=== PATIENT | female | born 1960 | race Caucasian/White ===

== ENCOUNTER 2017-06-09 18:55 | Inpatient (IN) ==
--- NOTE | 2017-06-09 19:49 | Emergency Department Note ---
General Adult HPI - General Chief complaint: Extremity Problem,Nontraumatic Stated complaint: left leg swelling Time Seen by Provider: 06/09/17 19:42 Source: patient Mode of arrival: ambulatory Limitations: no limitations - History of Present Illness HPI Narrative: Patient here for left leg swelling, also a lot of anxiety. Seen here 3 days ago , had been given medications for COPD exacerbation, states her breathing is improved although she didn't take her prednisone today, main thing is that she was sleeping for 3 days then she woke up with left leg swelling this morning. Mainly in the left leg swelling brought her in. She also has pain has pain in the left calf area. Moved here from [facility], was in clean and sober housing over there, not employed, smoke or use a one half to one pack a day, history of COPD denies any other medical history no chest pain no fevers or chills, she does have chronic shortness of breath - Related Data Previous Rx's Medication Instructions Recorded Albuterol Sulfate [Ventolin] 2 puff INH Q4-6HP PRN #1 inhaler 06/06/17 predniSONE [Prednisone] 20 mg PO DAILY #23 tablet 06/06/17 Allergies Allergy/AdvReac Type Severity Reaction Status Date / Time No Known Drug Allergies Allergy Verified 06/06/17 13:42 Review of Systems All systems ED: reviewed and negative except as stated. Constitutional: Denies: fever, chills Respiratory: Reports: cough, dyspnea Gastrointestinal: Denies: abdominal pain, nausea Integumentary: Reports: change in color Neurological: Reports: weakness Psychiatric: Reports: anxiety. Denies: suicidal thoughts Endocrine: Reports: fatigue Hematological/Lymphatic: Denies: easy bruising Allergic/Immunologic: Denies: facial swelling Past Medical History - Past Medical History Source: nursing notes reviewed Medical history: Reports: COPD Surgical history ED: Reports: non-contributory Psychiatric history: Reports: anxiety Family history: Reports: non-contributory - Social History smoking status: Current every day smoker Alcohol use: Reports: None Drug use: Reports: none Physical Exam - General Limitations: no limitations General appearance: alert, in distress - Head Head exam: atraumatic, normocephalic - Eye Eye exam: Present: normal appearance, PERRL, EOMI. Absent: conjunctival injection - ENT ENT exam: normal exam, normal oropharynx, mucous membranes moist - Neck Neck exam: Present: normal inspection, full ROM, trachea midline. Absent: tenderness, meningismus - Chest Chest inspection: Present: normal inspection - Respiratory Respiratory exam: Present: wheezes, accessory muscle use - Cardiovascular Cardiovascular exam: Present: regular rate, normal rhythm - Abdominal Exam Abdominal exam: Present: soft. Absent: distention - Extremities Exam Extremities exam: Present: tenderness, pedal edema, calf tenderness, other ( Swelling of the entire left lower e Entire left lower extremity). Absent: joint swelling - Back Exam Back exam: Present: normal inspection, full ROM. Absent: tenderness, CVA tenderness (R), CVA tenderness (L), vertebral tenderness - Neurological Exam Neurological exam: Present: alert, oriented X3 - Psychiatric Psychiatric exam: Present: normal affect - Skin Skin exam: Present: warm, dry, intact, cyanosis Course Vital Signs Temperature 98.2 F 06/09/17 18:56 Pulse Rate 111 H 06/09/17 18:56 Respiratory Rate 18 06/09/17 18:56 Blood Pressure 90/64 06/09/17 18:56 Pulse Oximetry (%) 94 06/09/17 18:56 Temperature 98.2 F 06/09/17 18:56 Pulse Rate 89 06/09/17 21:01 Respiratory Rate 18 06/09/17 18:56 Blood Pressure 100/73 06/09/17 21:01 Pulse Oximetry (%) 98 06/09/17 21:01 Medical Decision Making - [facility] Narrative Medical decision making narrative: Chest x-ray was negative, venous scan positive for large amount of clot. ABG remarkable for poor oxygen saturation, likely due to COPD exacerbation and. ProBNP fairly normal. 12-lead EKG showing late transition and marketed P pulmonale. Final impression is COPD exacerbation #2 DVT left leg - Lab Data Lab results reviewed: Yes I reviewed the patient's lab results. Result diagrams: 06/09/17 20:05 06/09/17 20:05 Lab Results 06/09/17 06/09/17 06/09/17 Range/Units 20:05 20:05 20:05 WBC 11.8 H (4.5-11.0) K/mcL RBC 5.14 (4.00-5.20) M/mcL Hgb 15.6 H (12.0-15.0) g/dL Hct 46.1 (36.0-48.0) % MCV 89.6 (80.0-100.0) fL MCH 30.2 (26.0-34.0) pg MCHC 33.8 (31.0-36.0) g/dL RDW 15.3 H (11.5-14.5) % Plt Count 184 (140-440) K/mcL MPV 8.1 (7.4-10.4) fL Gran % 80.4 H (38.0-78.0) % Lymph % (Auto) 12.5 L (15.5-49.0) % Hunt % (Auto) 5.9 (1.0-12.0) % Eos % (Auto) 0.4 (0.0-7.0) % Baso % (Auto) 0.8 (0.0-2.0) % Gran # 9.5 H (1.8-8.0) K/mcL Lymph # (Auto) 1.5 (1.5-4.8) K/mcL Hunt # (Auto) 0.7 (0.1-0.9) K/mcL Eos # (Auto) 0 (0.0-0.7) K/mcL Baso # (Auto) 0.1 (0.0-0.3) K/mcL PT 13.5 (11.9-14.5) sec INR 1.0 (0.9-1.1) Sodium 137 (133-145) mmol/L Potassium 4.1 (3.3-5.1) mmol/L Chloride 94 L (96-108) mmol/L Carbon Dioxide 25 (22-30) mmol/L Anion Gap 18.0 H (8-16) BUN 22 H (6-20) mg/dl Creatinine 0.9 (0.6-1.1) mg/dl GFR Calculation 71 Glucose 110 H (70-105) mg/dL Calcium 9.6 (8.6-10.4) mg/dl Magnesium 2.2 (1.6-2.5) mg/dL Total Bilirubin 0.7 (0.0-1.0) mg/dL AST 18 (0-37) U/l ALT 15 (0-40) U/l Alkaline Phosphatase 85 (39-117) U/L NT-Pro-B Natriuret Pep 126.6 H (0-125) pg/ml Total Protein 7.2 (5.9-8.4) gm/dL Albumin 4.7 (3.2-5.2) gm/dL Globulin 2.5 (2.2-3.7) gm/dL Albumin/Globulin Ratio 1.9 (1.0-2.3) - Radiology Data Radiology results reviewed: Yes I reviewed the patient's radiology results. Disposition Pt seen by PUMPER GAGER APPRENTICE/PA only: No Clinical Impression: Deep vein thrombosis of lower extremity Disposition: Xfer As Inpt ([facility]) Condition: Fair
[2017-06-09] MEDS ORDERED: LACTATED RINGERS 1,000 ML IV ONE (19:51)
[2017-06-09] MEDS ORDERED: IPRATROPIUM/ALBUTEROL 3 ML AMPUL.NEB NEB ONE (19:51)
[2017-06-09] MEDS ORDERED: HYDROmorphone 2 MG/ML SYRINGE IV PRN (20:57)
[2017-06-09 21:07] LABS: ALT/SGPT 15 U/l (0-40); Albumin 4.7 gm/dL (3.2-5.2); Albumin/Globulin Ratio 1.9 (1.0-2.3); Alkaline Phosphatase 85 U/L (39-117); Blood Urea Nitrogen 22 mg/dl (6-20); Magnesium 2.2 mg/dL (1.6-2.5); proBNP 126.6 pg/ml (0-125)
[2017-06-09 21:09] LABS: Basophils # (Auto) 0.1 K/mcL (0.0-0.3); Basophils % (Auto) 0.8 % (0.0-2.0); Eosinophils # (Auto) 0 K/mcL (0.0-0.7); Eosinophils % (Auto) 0.4 % (0.0-7.0); Granulocytes % (Auto) 80.4 % (38.0-78.0); Lymphocytes # (Auto) 1.5 K/mcL (1.5-4.8); Lymphocytes % (Auto) 12.5 % (15.5-49.0); Mean Cell Volume 89.6 fL (80.0-100.0); Mean Corpuscular HGB Conc 33.8 g/dL (31.0-36.0); Mean Corpuscular Hemoglobin 30.2 pg (26.0-34.0); Monocytes # (Auto) 0.7 K/mcL (0.1-0.9); Monocytes % (Auto) 5.9 % (1.0-12.0); Platelet Count 184 K/mcL (140-440); RBC 5.14 M/mcL (4.00-5.20); Red Cell Distribution Width 15.3 % (11.5-14.5)
[2017-06-09] MEDS ORDERED: methylPREDNISolone SOD SUCC 125 MG/2 ML VIAL IV ONE (21:27)
[2017-06-09] MEDS ORDERED: ENOXAPARIN 100 MG/ML SYRINGE SQ ONE (21:38)
[2017-06-09] MEDS ORDERED: PANTOPRAZOLE 40 MG VIAL IV ONE (21:39)
[2017-06-09 22:00] LABS: D-Dimer > 20.00 ug/ml (0.00-0.40)
--- NOTE | 2017-06-09 22:15 | Internal Med History&Physical ---
Medical - H&P: HPI Patient information: Note initiated : 06/09/17 at 10:11 pm Service Date, if different from initiated Date: [] Patient: Shelly Marie a 56 y/o F admitted on for left leg swelling. Chief Complaint: [] History of present illness: Ms. Marie is a 56 year old with a history of tobacco abuse, and COPD. She presented to the emergency room on June 06, complaining of shortness of breath and wheezing. She was diagnosed with a COPD exacerbation, and sent home on prednisone and albuterol. She was complaining of anxiety while in the emergency room, so was given a dose of Ativan. She says she went home, and slept for 3 days. When she awakened, her left leg was markedly swollen and painful. She came back to the emergency room, where a left lower extremity DVT was diagnosed. ABG today shows significant room air hypoxia. She otherwise denies recent fever or chills. She has been feeling a little dizzy for the last week. She says her throat is felt dry. She is also been having some occasional discomfort in her left chest, which she describes as dull and lasting several minutes at a time. It is nonradiating and does not seem to change her breathing or make her break out in a sweat. She denies abdominal pain, nausea or vomiting, diarrhea or constipation, or dysuria. She did have some nausea this evening, after the CAT scan, but no vomiting. Past medical history: Tobacco abuse, ongoing COPD Anxiety Significant GERD symptom Past methamphetamine use, status post treatment for 1 year in [facility], she got out about 2 weeks ago. Medications: Albuterol inhaler as needed Prednisone 20 mg daily, for the last few days. She is also on an unknown medication from Dr. Virginia Morales in [facility]. This comes from [facility]. Allergies: No known drug allergies Family history: The patient says she cannot recall her family history right now. She does report that she has 2 children in their early 20s. She believes they are healthy, but has not seen him in some time. Social history: The patient is a current smoker. She smokes about a half pack of cigarettes per day, and has been smoking since the age of 16. She drinks 1 or 2 beers most days. She was completely drug free for the last year, but got out of treatment about 2 weeks ago. She says she did use meth once about a week ago, and that it was a mistake. She is currently living with her boyfriend in [place]. Medical - H&P: Meds Home Medications Medication Instructions Recorded Confirmed Type Albuterol Sulfate 1.25 mg IH Q4 PRN 06/10/17 06/10/17 History Albuterol Sulfate [Proair Hfa] 2 puff IH Q4-6HP PRN 06/10/17 06/10/17 History predniSONE [Prednisone] 60 mg PO DAILY 06/10/17 06/10/17 History Allergies Allergy/AdvReac Type Severity Reaction Status Date / Time No Known Drug Allergies Allergy Verified 06/06/17 13:42 Medical - H&P: Exam - Constitutional Vitals: Temp Pulse Resp BP Pulse Ox 98.2 F 101 H 18 109/75 93 06/09/17 18:56 06/09/17 21:52 06/09/17 18:56 06/09/17 21:52 06/09/17 21:52 On arrival today, heart rate was 111, with respiratory rate 18, blood pressure 90/64, O2 saturations 94% on room air On exam, she does appear to be quite anxious. She is frequently wiggling her fingers and picking at her nails. Otherwise, she is not in acute distress although she does become nauseated at one point during the exam. Head: Normocephalic atraumatic. Eyes: Pupils are fairly pinpoint, but otherwise EOMI, anicteric. TMs are clear canals are clear. Pharynx: Appears fairly clear. She has a full upper plate and is edentulous in the lower jaw. Mucosa looks normal. Neck: Is supple, without lymphadenopathy, JVD, thyromegaly, bruits. Cardiac exam shows regular rate and rhythm with normal S1 and S2. No murmurs, rubs, gallops are noted. Lungs: Breath sounds are generally decreased throughout. I do not hear any obvious rales, rhonchi, wheezes. There is no obvious accessory muscle use. Abdomen: Is soft and nontender, without obvious masses. Bowel sounds are normoactive. Extremities: Right lower extremity has fairly normal appearance. Left lower extremity is fairly markedly swollen all the way from her foot up to her groin. It is slightly pink, but not warm to the touch. Pulses in her feet are intact bilaterally. Neurologic exam: The patient is awake and alert, but appears anxious. She seems to lack insight into her illness. She does seem a little bit tremulous, but otherwise exam is grossly nonfocal. Medical - H&P: Reslt - Labs CBC & Chem 7: 06/09/17 20:05 06/10/17 03:56 Labs: Short CBC 06/09/17 Range/Units 20:05 WBC 11.8 H (4.5-11.0) K/mcL Hgb 15.6 H (12.0-15.0) g/dL Hct 46.1 (36.0-48.0) % Plt Count 184 (140-440) K/mcL BMP 06/09/17 20:05 Sodium 137 Potassium 4.1 Chloride 94 L Carbon Dioxide 25 BUN 22 H Creatinine 0.9 Glucose 110 H Calcium 9.6 Liver Function 06/09/17 Range/Units 20:05 Total Bilirubin 0.7 (0.0-1.0) mg/dL AST 18 (0-37) U/l ALT 15 (0-40) U/l Alkaline Phosphatase 85 (39-117) U/L Albumin 4.7 (3.2-5.2) gm/dL June 09 CBC shows white blood cell count of 11,800, hemoglobin 15, hematocrit 46. Granulocyte count is 9500. Pro time is 13, INR 1.0 D-dimer is elevated at greater than 20 Chemistry panel is notable for a chloride of 94, anion gap is elevated at 18, BUN 22, creatinine 0.9, glucose 110 BNP is borderline at 126. ABG on room air: PH is 7.38, CO2 42, PO2 54, bicarb 24, O2 saturation 96%. EKG: Shows sinus tachycardia at a rate of about 110, low voltage is noted, there is a hint of a small Q-wave in lead III, as well as S wave in lead I. Medical - H&P: A/P (1) Tobacco abuse Current visit: Yes Status: Acute (2) Acute anxiety Current visit: Yes Status: Acute (3) Acute exacerbation of chronic obstructive airways disease Current visit: No Status: Acute (4) Deep vein thrombosis of lower extremity Current visit: Yes Status: Acute - Narrative A/P Narrative: #1. Pulmonary Patient presents with shortness of breath and significant room air hypoxia. She is at risk for both COPD exacerbation, as well as at significant risk for pulmonary embolism, given very extensive DVT. -Admit to telemetry for close observation. -Lovenox started in the ER, and continue with twice daily Lovenox 1 mg/kg. -Start Coumadin tomorrow -Ambulation is okay, but no excessive ambulation. Consider compression hose to help avoid post DVT edema. -CT angiogram of the chest was done this evening. Results are pending. -Oxygen as needed, duo nebs and albuterol nebs as needed. -Wait to decide about steroids, until CT scan is read. -IV Zithromax, to cover both typical and atypical infections. 2. Tobacco abuse. -Offer NicoDerm patch. 3. Substance abuse Street methamphetamine use. Clean for about 1 year, with 1 slipped about a week ago. 4. CODE STATUS: Full. 5. Psychiatric. Patient reports chronic anxiety. She does get some treatment from a Dr. Aline Morales in [facility], but she does not know what treatment that is. 6. GI. Patient reports history of GERD. Add famotidine twice daily. Today's visit took approximately 60 minutes, to review her case with the ER MD, interview and examine her, review test results, and order follow-up CT, and write orders.
[2017-06-09] MEDS ORDERED: IOPAMIDOL 100 ML BOTTLE IV ONE (22:30)
[2017-06-09] MEDS ORDERED: NALOXONE HCL 0.4 MG/ML VIAL IV PRN (22:40)
[2017-06-09] MEDS ORDERED: ALBUTEROL SULFATE 2.5 MG/3 ML NEBULIZER NEB PRN (22:40)
[2017-06-09] MEDS ORDERED: ONDANSETRON 4 MG/2 ML VIAL IV PRN (22:40)
[2017-06-09] MEDS ORDERED: DOCUSATE SODIUM 100 MG CAPSULE PO PRN (22:40)
[2017-06-09] MEDS ORDERED: POTASSIUM CHLORIDE 20 MEQ in 0.9 % SODIUM CHLORIDE 1,000 ML IV SCH (22:40)
[2017-06-09] MEDS ORDERED: ACETAMINOPHEN 325 MG TABLET PO PRN (22:40)
[2017-06-09] MEDS ORDERED: AZITHROMYCIN 500 MG in DEXTROSE 5% IN WATER 250 ML IV SCH (22:40)
[2017-06-09] MEDS ORDERED: MAGNESIUM HYDROXIDE 30 ML ORAL.SUSP PO PRN (22:40)
[2017-06-09] MEDS ORDERED: AZITHROMYCIN 500 MG VIAL IV ONE (22:52)
[2017-06-09] MEDS ORDERED: LORazepam 2 MG/ML VIAL ONE (22:58)
[2017-06-09] MEDS ORDERED: ONDANSETRON 4 MG/2 ML VIAL ONE (23:33)
[2017-06-10] MEDS: IPRATROPIUM/ALBUTEROL 3 ML AMPUL.NEB NEB SCH ×4 (01:28→19:16)
[2017-06-10 04:50] LABS: Basophils # (Auto) 0 K/mcL (0.0-0.3); Basophils % (Auto) 0 % (0.0-2.0); Eosinophils # (Auto) 0.1 K/mcL (0.0-0.7); Eosinophils % (Auto) 0.6 % (0.0-7.0); Lymphocytes # (Auto) 0.3 K/mcL (1.5-4.8); Lymphocytes % (Auto) 3.9 % (15.5-49.0); Mean Cell Volume 91.5 fL (80.0-100.0); Mean Corpuscular HGB Conc 33.3 g/dL (31.0-36.0); Mean Corpuscular Hemoglobin 30.5 pg (26.0-34.0); Monocytes # (Auto) 0.1 K/mcL (0.1-0.9); Monocytes % (Auto) 1.5 % (1.0-12.0); Platelet Count 159 K/mcL (140-440); RBC 4.29 M/mcL (4.00-5.20); Red Cell Distribution Width 15.9 % (11.5-14.5)
[2017-06-10 05:08] LABS: ALT/SGPT 12 U/l (0-40); Albumin 3.7 gm/dL (3.2-5.2); Albumin/Globulin Ratio 1.9 (1.0-2.3); Alkaline Phosphatase 69 U/L (39-117); Bilirubin,Direct < 0.2 mg/dL (0.0-0.3); Blood Urea Nitrogen 17 mg/dl (6-20); Gamma Glutamyl Transpeptidase 8 U/L (5-36); Uric Acid 4.6 mg/dL (2.5-8.0)
--- NOTE | 2017-06-10 06:55 | XRay Report ---
CLINICAL INFORMATION: Dyspnea TECHNIQUE: Upright PA and lateral chest x-ray COMPARISON: 06/06/2017, 01/06/2016 FINDINGS: Hyperexpansion. Appearance is consistent with COPD. Lungs are negative. No parenchymal infiltrate or mass. Heart size and vascularity are normal. Allie and mediastinum are negative. No pleural fluid. No new abnormalities. No significant interval change IMPRESSION: 1. No acute or focal abnormality 2. No significant interval change since 06/06/2017 Interpreted and Authenticated by: Reggie Maldonado 06/10/17
--- NOTE | 2017-06-10 07:12 | Cat Scan Report ---
CLINICAL INFORMATION: COPD. Hypoxia. COMPARISON: Chest x-rays dated 06/09/2017, 06/06/2017, 01/06/2016 TECHNIQUE: Axial images obtained through the chest. 80 mL intravenous contrast administration was administered, and scanning was performed during pulmonary arterial phase. Sagittally and coronally reformatted images were obtained. MIP reformatted images. FINDINGS: Single small embolism in the right lower lobe posterior basilar segmental artery. No other intraluminal filling defects. Examination is otherwise negative. Main pulmonary artery, right pulmonary artery, left pulmonary artery are negative. Centrilobular emphysema with predominantly upper lobe distribution. This is consistent with smoking history. Clinical correlation necessary. No focal infiltrate or mass. Mediastinum and adam are negative. No pleural fluid. No pericardial fluid. Upper abdomen is negative. Thoracic spine is negative. No rib or sternal lesions. Examination was reviewed by [facility] IMPRESSION: 1. Centrilobular emphysema 2. Single segmental filling defect consistent pulmonary embolism. This is in the posterior basilar segmental branch of the right lower lobe pulmonary artery. Interpreted and Authenticated by: Reggie Maldonado 06/10/17
[2017-06-10] MEDS ORDERED: NACL 0.9% W/KCL 20MEQ 1,000 ML IV SCH (07:15)
--- NOTE | 2017-06-10 07:40 | Ultrasound Report ---
CLINICAL INFORMATION: Left leg pain and swelling TECHNIQUE: Grayscale and color flow Doppler spectral imaging COMPARISON: None. FINDINGS: Extensive deep venous thrombosis in the left lower extremity. Thrombus within the left external iliac vein, common femoral vein, superficial femoral vein. Doppler vein is occluded. There is acute deep venous thrombosis within the calf veins as well as the greater saphenous vein. Inferior vena cava is not visualized due to bowel gas IMPRESSION: Extensive acute deep venous thrombosis from the left external iliac vein through the calf. Interpreted and Authenticated by: Reggie Maldonado 06/10/17
[2017-06-10] MEDS: ENOXAPARIN 60 MG/0.6 ML SYRINGE SQ SCH ×2 (10:00→22:00)
[2017-06-10] MEDS: FAMOTIDINE 20 MG TABLET PO SCH ×2 (10:00→19:20)
[2017-06-10] MEDS: DEXTROSE 5%-NS 1,000 ML IV SCH ×2 (10:01→19:29)
--- NOTE | 2017-06-10 11:13 | Internal Med Progress Note ---
Medical - PN: Subj Patient information: Note initiated : 06/10/17 at 11:13 am Service Date, if different from initiated Date: [] Patient: Shelly Marie a 56 y/o F admitted on 06/09/17 for left leg swelling. Chief Complaint: [] Interval history: June 09, 2017: History of present illness: Ms. Marie is a 56 year old with a history of tobacco abuse, and COPD. She presented to the emergency room on June 06, complaining of shortness of breath and wheezing. She was diagnosed with a COPD exacerbation, and sent home on prednisone and albuterol. She was complaining of anxiety while in the emergency room, so was given a dose of Ativan. She says she went home, and slept for 3 days. When she awakened, her left leg was markedly swollen and painful. She came back to the emergency room, where a left lower extremity DVT was diagnosed. ABG today shows significant room air hypoxia. She otherwise denies recent fever or chills. She has been feeling a little dizzy for the last week. She says her throat is felt dry. She is also been having some occasional discomfort in her left chest, which she describes as dull and lasting several minutes at a time. It is nonradiating and does not seem to change her breathing or make her break out in a sweat. She denies abdominal pain, nausea or vomiting, diarrhea or constipation, or dysuria. She did have some nausea this evening, after the CAT scan, but no vomiting. June 10: -The patient did undergo CT angiogram last night, which did find small peripheral pulmonary emboli. She has been loaded with therapeutic dose Lovenox , and so far seems to be tolerating this well. Today, she thinks her left leg is a little less swollen and less painful. Otherwise, she denies fever or chills, chest pain or significant shortness of breath, cough. She denies headaches or dizziness, abdominal pain, nausea or vomiting, diarrhea or constipation, dysuria. -She continues to report mild anxiety, which she thinks is chronic. She says she would like treatment for this. She believes she was prescribed a medication by a Dr. Virginia Odom in [facility], but she really does not know what the medicine is or what it was for. We called [facility], but apparently could not find evidence of a prescription. -We should try to call this doctor's office tomorrow, to see if we could get some records on her. - Constitutional Vitals: Vital Signs Temp Pulse Resp BP Pulse Ox 97.1 F 61 16 92/65 94 06/10/17 08:00 06/10/17 07:26 06/10/17 08:00 06/10/17 08:00 06/10/17 08:00 Period Temp Pulse Resp BP Sys/Christian Pulse Ox Last 24 Hr 97.1 F-98.2 F 61-97 16-18 92-99/65-72 94-99 Intake and Output 06/09/17 06/10/17 06/10/17 21:59 05:59 13:59 Intake Total 1210 / 1210 Output Total 325 / 325 225 / 225 Balance -325 / -325 985 / 985 Weight 106 lb 14.4 oz Intake & Output: Intake & Output 06/09/17 06/10/17 06/10/17 21:59 05:59 13:59 Intake Total 1210 / 1210 Output Total 325 / 325 225 / 225 Balance -325 / -325 985 / 985 Weight 106 lb 14.4 oz Intake: IV 1010 / 1010 Oral 200 / 200 Output: Void Amount 325 / 325 225 / 225 Other: Meal Nourishment/Supplement Breakfast Percent of Meal Consumed 100% 90% Feeding Ability Independent # Voids 1 On exam, she seems calmer and more comfortable today. She does have some repeated movements, that are suggestive of tardive dyskinesia, with repeated tongue thrusting and some pill rolling of her fingers. Neck is supple without obvious lymphadenopathy or JVD. Cardiac exam shows regular rate and rhythm. Lungs: Breath sounds are generally decreased, more so at the right base. No rhonchi or wheezes are noted today. Abdomen is soft and nontender. Extremities: Right lower extremity appears normal. Left lower extremity is still swollen all the way to the groin, but is less swollen and less pink today than yesterday. Neurologic exam: The patient appears alert and oriented. She is a bit anxious. She does have some unusual repetitive movements, as noted above. Otherwise her exam is grossly nonfocal. Medical - PN: Obj Da - Labs CBC & Chem 7: 06/09/17 20:05 06/10/17 03:56 Labs: Abnormal Lab Results 06/10/17 03:56 Potassium 5.4 H Glucose 151 H Calcium 8.3 L Total Protein 5.6 L Globulin 1.9 L June 09: CT angiogram: showed centrilobular emphysema. There was also single segmental filling defect consistent with pulmonary embolism, and the posterior basilar segment branch of the right lower lobe pulmonary artery. CBC shows white blood cell count of 11,800, hemoglobin 15, hematocrit 46. Granulocyte count is 9500. Pro time is 13, INR 1.0 D-dimer is elevated at greater than 20 Chemistry panel is notable for a chloride of 94, anion gap is elevated at 18, BUN 22, creatinine 0.9, glucose 110 BNP is borderline at 126. ABG on room air: PH is 7.38, CO2 42, PO2 54, bicarb 24, O2 saturation 96%. EKG: Shows sinus tachycardia at a rate of about 110, low voltage is noted, there is a hint of a small Q-wave in lead III, as well as S wave in lead I. Chest x-ray shows hyperexpansion consistent with COPD. Change since June 06, 2017. Meds: Medications Acetaminophen (Tylenol) 650 mg PO Q6HP PRN PRN Reason: PAIN/FEVER > 101 Hydrocodone Bitart/Acetaminophen ([place] 5/325mg) 1 tab PO Q4HP PRN PRN Reason: Pain Albuterol Sulfate (Ventolin) 2.5 mg NEB Q2HP PRN PRN Reason: Shortness Of Breath Or Wheezing Albuterol/Ipratropium (Duoneb) 3 ml NEB Q6HRT [facility] Last Admin: 06/10/17 07:26 Dose: 3 ml Docusate Sodium (Colace) 100 mg PO BID PRN PRN Reason: Constipation Enoxaparin Sodium (Lovenox) 50 mg SQ BID [facility] Last Admin: 06/10/17 10:00 Dose: 50 mg Famotidine (Pepcid) 20 mg PO BID [facility] Last Admin: 06/10/17 10:00 Dose: 20 mg Azithromycin 500 mg/ Dextrose 250 mls @ 250 mls/hr IV DAILY [facility] Stop: 06/11/17 09:59 Dextrose/Sodium Chloride (Dextrose 5%-Ns Iv Solution) 1,000 mls @ 100 mls/hr IV .Q10H [facility] Last Admin: 06/10/17 10:01 Dose: 100 mls/hr Lorazepam (Ativan) 0.5 mg IV Q2HP PRN PRN Reason: ANXIETY/SEDATION Magnesium Hydroxide (Milk Of Magnesia) 30 ml PO DAILYP PRN PRN Reason: Constipation Morphine Sulfate (Morphine) 2 mg IV Q1HP PRN PRN Reason: Pain Naloxone HCl (Narcan) 0.1 mg IV Q2MIN PRN PRN Reason: Opiate Reversal Ondansetron HCl (Zofran) 4 mg IV Q4HP PRN PRN Reason: Nausea And Vomiting Medical - PN: A/P - Time Spent With Patient Total time spent is greater than 50% in coordination of care (as documented) at patient's floor/unit and/or counseling patient: 25 - 35 minutes (1) Tobacco abuse Status: Acute Current Visit: Yes (2) Acute anxiety Status: Acute Current Visit: Yes (3) Acute exacerbation of chronic obstructive airways disease Status: Acute Current Visit: No (4) Deep vein thrombosis of lower extremity Status: Acute Current Visit: Yes - Narrative A/P Narrative: #1. Pulmonary Patient presents with shortness of breath and significant room air hypoxia. -Workup last night did confirm that she has a small pulmonary embolism, in addition to an extensive left lower extremity DVT. -She was loaded with therapeutic dose Lovenox. Coumadin will be started today. She will probably need extensive education. I do not believe she has a local healthcare provider, so we will need to locate one for her. -Continue to monitor on telemetry. -Ambulation is okay, teds hose is okay to help prevent post DVT swelling. -Oxygen as needed, duo nebs and albuterol nebs as needed. -Steroids are on hold, as she is not wheezing. -IV Zithromax, to cover both typical and atypical infections. 2. Tobacco abuse. -Offer NicoDerm patch. 3. Substance abuse Recent methamphetamine use. Clean for about 1 year, with 1 slip up about a week ago. 4. CODE STATUS: Full. 5. Psychiatric. Patient reports chronic anxiety. She does get some treatment from a Dr. Aline Morales in [facility], but she does not know what treatment that is. -We need to try to locate Dr. Odom records tomorrow. 6. GI. Patient reports history of GERD. Added famotidine twice daily. This visit took approximately 30 minutes, to review test results, interview and examine the patient, review plan of care with her as well as with staff, and write orders. Medical - PN: Qual - VTE Deep Vein Thrombosis/Pulmonary Embolism Present on Admission: Yes
[2017-06-10] MEDS: AZITHROMYCIN 500 MG in DEXTROSE 5% IN WATER 250 ML IV SCH (14:37)
[2017-06-10] MEDS: WARFARIN 4 MG TABLET PO SCH (15:33)
[2017-06-10] MEDS: HYDROcodone/APAP 5/325MG TABLET PO PRN ×2 (19:20→23:46)
[2017-06-10] MEDS: LORazepam 2 MG/ML VIAL IV PRN (19:20)
[2017-06-10] MEDS: 0.9 % SODIUM CHLORIDE 10 ML SYRINGE IV SCH (22:00)
[2017-06-11] MEDS: IPRATROPIUM/ALBUTEROL 3 ML AMPUL.NEB NEB SCH ×4 (00:02→19:23)
[2017-06-11] MEDS: HYDROcodone/APAP 5/325MG TABLET PO PRN ×2 (03:25→20:10)
[2017-06-11] MEDS: 0.9 % SODIUM CHLORIDE 10 ML SYRINGE IV SCH ×3 (05:14→22:00)
[2017-06-11] MEDS: DEXTROSE 5%-NS 1,000 ML IV SCH ×2 (05:46→18:30)
[2017-06-11 07:56] LABS: ALT/SGPT 8 U/l (0-40); Alkaline Phosphatase 51 U/L (39-117); Bilirubin,Direct < 0.2 mg/dL (0.0-0.3); Blood Urea Nitrogen 13 mg/dl (6-20); Gamma Glutamyl Transpeptidase 5 U/L (5-36); Uric Acid 2.9 mg/dL (2.5-8.0)
[2017-06-11 07:57] LABS: Mean Cell Volume 91.7 fL (80.0-100.0); Mean Corpuscular HGB Conc 33.4 g/dL (31.0-36.0); Mean Corpuscular Hemoglobin 30.6 pg (26.0-34.0); Platelet Count 159 K/mcL (140-440); Red Cell Distribution Width 15.2 % (11.5-14.5)
[2017-06-11 08:33] LABS: Lymphocytes % 11 % (15-49); Monocytes % (Manual) 12 % (1-12); Platelet Estimate NORMAL (NORMAL); RBC Morphology NORMAL (NORMAL); Segmented Neutrophils % 77 % (38-78)
[2017-06-11] MEDS ORDERED: 0.9 % SODIUM CHLORIDE 500 ML IV ONE (09:11)
[2017-06-11] MEDS: FAMOTIDINE 20 MG TABLET PO SCH ×2 (09:27→20:10)
[2017-06-11] MEDS: ENOXAPARIN 60 MG/0.6 ML SYRINGE SQ SCH ×2 (09:35→20:10)
[2017-06-11] MEDS: AZITHROMYCIN 500 MG in DEXTROSE 5% IN WATER 250 ML IV SCH (09:48)
--- NOTE | 2017-06-11 14:30 | Internal Med Progress Note ---
Medical - PN: Subj Patient information: Note initiated : 06/11/17 at 2:27 pm Service Date, if different from initiated Date: [] Patient: Shelly Marie a 56 y/o F admitted on 06/09/17 for left leg swelling. Chief Complaint: [] Interval history: June 09, 2017: History of present illness: Ms. Marie is a 56 year old with a history of tobacco abuse, and COPD. She presented to the emergency room on June 06, complaining of shortness of breath and wheezing. She was diagnosed with a COPD exacerbation, and sent home on prednisone and albuterol. She was complaining of anxiety while in the emergency room, so was given a dose of Ativan. She says she went home, and slept for 3 days. When she awakened, her left leg was markedly swollen and painful. She came back to the emergency room, where a left lower extremity DVT was diagnosed. ABG today shows significant room air hypoxia. She otherwise denies recent fever or chills. She has been feeling a little dizzy for the last week. She says her throat is felt dry. She is also been having some occasional discomfort in her left chest, which she describes as dull and lasting several minutes at a time. It is nonradiating and does not seem to change her breathing or make her break out in a sweat. She denies abdominal pain, nausea or vomiting, diarrhea or constipation, or dysuria. She did have some nausea this evening, after the CAT scan, but no vomiting. June 10: -The patient did undergo CT angiogram last night, which did find small peripheral pulmonary emboli. She has been loaded with therapeutic dose Lovenox , and so far seems to be tolerating this well. Today, she thinks her left leg is a little less swollen and less painful. Otherwise, she denies fever or chills, chest pain or significant shortness of breath, cough. She denies headaches or dizziness, abdominal pain, nausea or vomiting, diarrhea or constipation, dysuria. -She continues to report mild anxiety, which she thinks is chronic. She says she would like treatment for this. She believes she was prescribed a medication by a Dr. Virginia Odom in [facility], but she really does not know what the medicine is or what it was for. We called [facility], but apparently could not find evidence of a prescription. -We should try to call this doctor's office tomorrow, to see if we could get some records on her. 06/11- patient doing well. No overnight events. Systolic blood pressure around 18. Orthostatic hypotension noted. patient on full dose anticoagulation. Coumadin counseling performed. Continue monitoring in ICU. left lower extremity swelling significantly worse than previous day. - Constitutional Vitals: Vital Signs Temp Pulse Resp BP Pulse Ox 98.4 F 75 22 115/98 93 06/11/17 12:00 06/11/17 13:41 06/11/17 13:41 06/11/17 12:00 06/11/17 12:14 Period Temp Pulse Resp BP Sys/Christian Pulse Ox Last 24 Hr 97.0 F-98.6 F 58-83 16-22 80-150/50-128 93-100 Intake and Output 06/11/17 06/11/17 06/11/17 05:59 13:59 21:59 Intake Total 1150 / 1150 572 / 572 Output Total 575 / 575 300 / 300 150 / 150 Balance 575 / 575 272 / 272 -150 / -150 Intake & Output: Intake & Output 06/11/17 06/11/17 06/11/17 05:59 13:59 21:59 Intake Total 1150 / 1150 572 / 572 Output Total 575 / 575 300 / 300 150 / 150 Balance 575 / 575 272 / 272 -150 / -150 Intake: IV 1000 / 1000 332 / 332 Dextrose 5%-Ns IV 1000 / 1000 332 / 332 Solution 1,000 ml @ 100 mls/hr IV .Q10H [facility] Rx#: [id number] Oral 150 / 150 240 / 240 Output: Void Amount 575 / 575 300 / 300 150 / 150 Other: Meal Breakfast Percent of Meal Consumed 100% Feeding Ability Independent General appearance: no acute distress Exam: involuntary lip smacking. Dyskinetic Alert oriented nonlabored breathing Nondistended abdomen no lymphedema Medical - PN: Obj Da - Labs CBC & Chem 7: 06/11/17 06:16 06/11/17 06:15 Labs: Abnormal Lab Results 06/11/17 06/11/17 06/11/17 06:16 06:15 06:15 RBC 3.60 L Hgb 11.0 L Hct 33.0 L RDW 15.2 H Lymphocytes % 11 L PT 15.1 H INR 1.2 H Potassium Anion Gap 7.0 L Glucose 128 H Calcium 8.0 L Total Protein 4.5 L Albumin 3.0 L Globulin 1.5 L 06/10/17 03:56 RBC Hgb Hct RDW Lymphocytes % PT INR Potassium 5.4 H Anion Gap Glucose 151 H Calcium 8.3 L Total Protein 5.6 L Albumin Globulin 1.9 L Meds: Medications Acetaminophen (Tylenol) 650 mg PO Q6HP PRN PRN Reason: PAIN/FEVER > 101 Hydrocodone Bitart/Acetaminophen ([place] 5/325mg) 1 tab PO Q4HP PRN PRN Reason: Pain Last Admin: 06/11/17 03:25 Dose: 1 tab Albuterol Sulfate (Ventolin) 2.5 mg NEB Q2HP PRN PRN Reason: Shortness Of Breath Or Wheezing Albuterol/Ipratropium (Duoneb) 3 ml NEB Q6HRT [facility] Last Admin: 06/11/17 13:41 Dose: 3 ml Docusate Sodium (Colace) 100 mg PO BID PRN PRN Reason: Constipation Enoxaparin Sodium (Lovenox) 50 mg SQ BID [facility] Last Admin: 06/11/17 09:35 Dose: 50 mg Famotidine (Pepcid) 20 mg PO BID [facility] Last Admin: 06/11/17 09:27 Dose: 20 mg Dextrose/Sodium Chloride (Dextrose 5%-Ns Iv Solution) 1,000 mls @ 100 mls/hr IV .Q10H [facility] Last Infusion: 06/11/17 09:05 Dose: 0 mls/hr Lorazepam (Ativan) 0.5 mg IV Q2HP PRN PRN Reason: ANXIETY/SEDATION Last Admin: 06/10/17 19:20 Dose: 0.5 mg Magnesium Hydroxide (Milk Of Magnesia) 30 ml PO DAILYP PRN PRN Reason: Constipation Morphine Sulfate (Morphine) 2 mg IV Q1HP PRN PRN Reason: Pain Naloxone HCl (Narcan) 0.1 mg IV Q2MIN PRN PRN Reason: Opiate Reversal Ondansetron HCl (Zofran) 4 mg IV Q4HP PRN PRN Reason: Nausea And Vomiting Last Admin: 06/10/17 16:40 Dose: 4 mg Sodium Chloride (Saline Flush) 10 ml IV Q8 [facility] Last Admin: 06/11/17 05:14 Dose: Not Given Warfarin Sodium (Coumadin Per Pharmacy) 1 order PO DAILY@1400 [facility] Warfarin Sodium (Coumadin) 4 mg PO DAILY@1400 [facility] Last Admin: 06/10/17 15:33 Dose: 4 mg Warfarin Sodium (Coumadin) 4 mg PO DAILY@1400 [facility] Medical - PN: A/P - Time Spent With Patient Total time spent is greater than 50% in coordination of care (as documented) at patient's floor/unit and/or counseling patient: 25 - 35 minutes - Narrative A/P Narrative: * multifocal pulmonary embolism-on full dose and decortication * extended left lower extremity DVT provoked-Continue full dose anticoagulation for minimum 6 months * Hypoxic respiratory insufficiency secondary to above. continue supplemental oxygen * Orthostatic hypotension secondary to impaired cardiac output from PE. Continue ICU care * tobacco dependence continue nicotine patch plan * continue anticoagulation * Coumadin dosing based on INR * Close hemodynamic monitoring * ICU care in light of profound hypotension secondary to pulmonary embolism compromising cardiac output Medical - PN: Qual - VTE Deep Vein Thrombosis/Pulmonary Embolism Present on Admission: Yes
[2017-06-11] MEDS: WARFARIN 4 MG TABLET PO SCH ×2 (16:02→16:07)
[2017-06-11] MEDS: LORazepam 2 MG/ML VIAL IV PRN (20:10)
[2017-06-12] MEDS: IPRATROPIUM/ALBUTEROL 3 ML AMPUL.NEB NEB SCH ×4 (01:14→19:26)
[2017-06-12] MEDS: 0.9 % SODIUM CHLORIDE 10 ML SYRINGE IV SCH ×3 (05:32→22:00)
[2017-06-12 06:01] LABS: Mean Cell Volume 92.4 fL (80.0-100.0); Mean Corpuscular HGB Conc 32.9 g/dL (31.0-36.0); Mean Corpuscular Hemoglobin 30.4 pg (26.0-34.0); Platelet Count 184 K/mcL (140-440); RBC 3.75 M/mcL (4.00-5.20); Red Cell Distribution Width 15.8 % (11.5-14.5)
[2017-06-12] MEDS: DEXTROSE 5%-NS 1,000 ML IV SCH (06:21)
[2017-06-12 06:23] LABS: ALT/SGPT 10 U/l (0-40); Albumin/Globulin Ratio 1.8 (1.0-2.3); Alkaline Phosphatase 50 U/L (39-117); Bilirubin,Direct < 0.2 mg/dL (0.0-0.3); Blood Urea Nitrogen 12 mg/dl (6-20); Gamma Glutamyl Transpeptidase 6 U/L (5-36); Magnesium 1.8 mg/dL (1.6-2.5); Uric Acid 3.2 mg/dL (2.5-8.0)
[2017-06-12] MEDS ORDERED: FUROSEMIDE 20 MG/2 ML VIAL IV ONE (06:40)
[2017-06-12 07:27] LABS: Anisocytosis FEW (NONE SEEN); Lymphocytes % 21 % (15-49); Monocytes % (Manual) 13 % (1-12); Myelocytes % 1 % (0-0); Platelet Estimate NORMAL (NORMAL); RBC Morphology ABNORM (NORMAL); Segmented Neutrophils % 65 % (38-78)
--- NOTE | 2017-06-12 07:35 | XRay Report ---
CLINICAL INFORMATION: Dyspnea. Wheezing. TECHNIQUE: AP upright chest x-ray COMPARISON: 06/09/2017, 06/06/2017. CT scan dated 06/09/2017 FINDINGS: Findings consistent with COPD. Previous chest CT scan demonstrated centrilobular emphysema. Lungs are negative, no acute abnormality. No parenchymal infiltrate or mass. Heart size and vascularity are normal. No pulmonary edema. No pulmonary congestion. No acute abnormality. No significant interval change IMPRESSION: No acute abnormality. No interval change since 06/09/2017 Interpreted and Authenticated by: Reggie Maldonado 06/12/17
--- NOTE | 2017-06-12 08:22 | Internal Med Progress Note ---
Medical - PN: Subj Patient information: Note initiated : 06/12/17 at 8:18 am Service Date, if different from initiated Date: [] Patient: Shelly Marie a 56 y/o F admitted on 06/09/17 for left leg swelling. Chief Complaint: [] Interval history: June 09, 2017: History of present illness: Ms. Marie is a 56 year old with a history of tobacco abuse, and COPD. She presented to the emergency room on June 06, complaining of shortness of breath and wheezing. She was diagnosed with a COPD exacerbation, and sent home on prednisone and albuterol. She was complaining of anxiety while in the emergency room, so was given a dose of Ativan. She says she went home, and slept for 3 days. When she awakened, her left leg was markedly swollen and painful. She came back to the emergency room, where a left lower extremity DVT was diagnosed. ABG today shows significant room air hypoxia. She otherwise denies recent fever or chills. She has been feeling a little dizzy for the last week. She says her throat is felt dry. She is also been having some occasional discomfort in her left chest, which she describes as dull and lasting several minutes at a time. It is nonradiating and does not seem to change her breathing or make her break out in a sweat. She denies abdominal pain, nausea or vomiting, diarrhea or constipation, or dysuria. She did have some nausea this evening, after the CAT scan, but no vomiting. June 10: -The patient did undergo CT angiogram last night, which did find small peripheral pulmonary emboli. She has been loaded with therapeutic dose Lovenox , and so far seems to be tolerating this well. Today, she thinks her left leg is a little less swollen and less painful. Otherwise, she denies fever or chills, chest pain or significant shortness of breath, cough. She denies headaches or dizziness, abdominal pain, nausea or vomiting, diarrhea or constipation, dysuria. -She continues to report mild anxiety, which she thinks is chronic. She says she would like treatment for this. She believes she was prescribed a medication by a Dr. Virginia Odom in [facility], but she really does not know what the medicine is or what it was for. We called [facility], but apparently could not find evidence of a prescription. -We should try to call this doctor's office tomorrow, to see if we could get some records on her. 06/11- patient doing well. No overnight events. Systolic blood pressure around 18. Orthostatic hypotension noted. patient on full dose anticoagulation. Coumadin counseling performed. Continue monitoring in ICU. left lower extremity swelling significantly worse than previous day. 06/12- orthostatic hypotension is improved however patient is persistently dizzy during ambulation. systolics of improved from low 80s to mid 90s. She has been remarkably short of breath and wheezy overnight. no overnight fever chills.white count is 7.7. INR 1.3. Patient being trained on self administration of Lovenox shots. no evidence of chest infiltrates or volume overload on chest imaging. anticipate discharge in 24-48 hours once orthostatic hypotension improves and hemodynamically stable. Continue telemetry monitoring - Constitutional Vitals: Vital Signs Temp Pulse Resp BP Pulse Ox 99.3 F H 90 18 105/68 97 06/12/17 08:00 06/12/17 08:07 06/12/17 08:07 06/12/17 08:00 06/12/17 08:06 Period Temp Pulse Resp BP Sys/Christian Pulse Ox Last 24 Hr 97.5 F-99.3 F 65-100 16-90 80-115/50-98 93-100 Intake and Output 06/11/17 06/12/17 06/12/17 21:59 05:59 13:59 Intake Total 1008 / 1008 260 / 260 Output Total 721 / 721 300 / 300 200 / 200 Balance 287 / 287 -40 / -40 -200 / -200 Weight 123 lb Intake & Output: Intake & Output 06/11/17 06/12/17 06/12/17 21:59 05:59 13:59 Intake Total 1008 / 1008 260 / 260 Output Total 721 / 721 300 / 300 200 / 200 Balance 287 / 287 -40 / -40 -200 / -200 Weight 123 lb Intake: IV 668 / 668 Dextrose 5%-Ns IV 668 / 668 Solution 1,000 ml @ 100 mls/hr IV .Q10H [facility] Rx#: [id number] Oral 340 / 340 260 / 260 Output: Void Amount 720 / 720 300 / 300 200 / 200 # of times incontinent of 1 / urine Other: Percent of Meal Consumed 75% Feeding Ability Independent # Bowel Movements 0 General appearance: cooperative, mild distress (SOB) Exam: abored and tachypneic Minimally anxious dizzy on ambulation No lymphedema Nondistended abdomen Medical - PN: Obj Da - Labs CBC & Chem 7: 06/12/17 03:33 06/12/17 03:33 Labs: Abnormal Lab Results 06/12/17 06/12/17 06/12/17 03:33 03:33 03:33 RBC 3.75 L Hgb 11.4 L Hct 34.7 L RDW 15.8 H Lymphocytes % Monocytes % (Manual) 13 H Myelocytes % 1 H RBC Morphology Abnorm A Anisocytosis Few A PT 16.9 H INR 1.3 H Potassium Anion Gap Glucose Calcium 7.9 L Phosphorus 2.6 L Total Protein 4.7 L Albumin 3.0 L Globulin 1.7 L 06/11/17 06/11/17 06/11/17 06:16 06:15 06:15 RBC 3.60 L Hgb 11.0 L Hct 33.0 L RDW 15.2 H Lymphocytes % 11 L Monocytes % (Manual) Myelocytes % RBC Morphology Anisocytosis PT 15.1 H INR 1.2 H Potassium Anion Gap 7.0 L Glucose 128 H Calcium 8.0 L Phosphorus Total Protein 4.5 L Albumin 3.0 L Globulin 1.5 L 06/10/17 03:56 RBC Hgb Hct RDW Lymphocytes % Monocytes % (Manual) Myelocytes % RBC Morphology Anisocytosis PT INR Potassium 5.4 H Anion Gap Glucose 151 H Calcium 8.3 L Phosphorus Total Protein 5.6 L Albumin Globulin 1.9 L Meds: Medications Acetaminophen (Tylenol) 650 mg PO Q6HP PRN PRN Reason: PAIN/FEVER > 101 Hydrocodone Bitart/Acetaminophen ([place] 5/325mg) 1 tab PO Q4HP PRN PRN Reason: Pain Last Admin: 06/11/17 20:10 Dose: 1 tab Albuterol Sulfate (Ventolin) 2.5 mg NEB Q2HP PRN PRN Reason: Shortness Of Breath Or Wheezing Albuterol/Ipratropium (Duoneb) 3 ml NEB Q6HRT [facility] Last Admin: 06/12/17 08:04 Dose: 3 ml Docusate Sodium (Colace) 100 mg PO BID PRN PRN Reason: Constipation Enoxaparin Sodium (Lovenox) 50 mg SQ BID [facility] Last Admin: 06/11/17 20:10 Dose: 50 mg Famotidine (Pepcid) 20 mg PO BID [facility] Last Admin: 06/11/17 20:10 Dose: 20 mg Dextrose/Sodium Chloride (Dextrose 5%-Ns Iv Solution) 1,000 mls @ 100 mls/hr IV .Q10H [facility] Last Admin: 06/12/17 06:21 Dose: Not Given Lorazepam (Ativan) 0.5 mg IV Q2HP PRN PRN Reason: ANXIETY/SEDATION Last Admin: 06/11/17 20:10 Dose: 0.5 mg Magnesium Hydroxide (Milk Of Magnesia) 30 ml PO DAILYP PRN PRN Reason: Constipation Morphine Sulfate (Morphine) 2 mg IV Q1HP PRN PRN Reason: Pain Naloxone HCl (Narcan) 0.1 mg IV Q2MIN PRN PRN Reason: Opiate Reversal Ondansetron HCl (Zofran) 4 mg IV Q4HP PRN PRN Reason: Nausea And Vomiting Last Admin: 06/10/17 16:40 Dose: 4 mg Sodium Chloride (Saline Flush) 10 ml IV Q8 [facility] Last Admin: 06/12/17 05:32 Dose: 10 ml Warfarin Sodium (Coumadin Per Pharmacy) 1 order PO DAILY@1400 [facility] Last Admin: 06/11/17 16:08 Dose: Not Given Warfarin Sodium (Coumadin) 4 mg PO DAILY@1400 [facility] Last Admin: 06/11/17 16:02 Dose: 4 mg Medical - PN: A/P - Time Spent With Patient Total time spent is greater than 50% in coordination of care (as documented) at patient's floor/unit and/or counseling patient: 25 - 35 minutes - Narrative A/P Narrative: * Acute pulmonary embolism-on full dose anticoagulation on Lovenox. continue Coumadin dosing based on INR * Left lower extremity DVT provoked-Continue full dose anticoagulation for minimum 6 months * Hypoxic respiratory insufficiency secondary to above. continue supplemental oxygen * Orthostatic hypotension secondary to impaired cardiac output from PE. clinically improving. Continue ICU care, physical therapy, and close hemodynamic monitoring. * tobacco dependence plan * continue anticoagulationon low molecular weight heparin * Daily Coumadin dosing based on INR * transfer to telemetry Medical - PN: Qual - VTE Deep Vein Thrombosis/Pulmonary Embolism Present on Admission: Yes
[2017-06-12] MEDS: FAMOTIDINE 20 MG TABLET PO SCH ×2 (09:30→20:12)
[2017-06-12] MEDS: ENOXAPARIN 60 MG/0.6 ML SYRINGE SQ SCH ×2 (09:31→20:12)
[2017-06-12] MEDS: WARFARIN 4 MG TABLET PO SCH (13:56)
[2017-06-12] MEDS: HYDROcodone/APAP 5/325MG TABLET PO PRN (20:12)
[2017-06-12] MEDS: LORazepam 2 MG/ML VIAL IV PRN (20:14)
[2017-06-13] MEDS: IPRATROPIUM/ALBUTEROL 3 ML AMPUL.NEB NEB SCH ×3 (01:02→13:04)
[2017-06-13] MEDS: 0.9 % SODIUM CHLORIDE 10 ML SYRINGE IV SCH (05:37)
[2017-06-13 06:03] LABS: Mean Cell Volume 91.5 fL (80.0-100.0); Mean Corpuscular HGB Conc 33.2 g/dL (31.0-36.0); Mean Corpuscular Hemoglobin 30.4 pg (26.0-34.0); Platelet Count 192 K/mcL (140-440); RBC 3.71 M/mcL (4.00-5.20); Red Cell Distribution Width 15.6 % (11.5-14.5)
[2017-06-13 06:38] LABS: ALT/SGPT 8 U/l (0-40); Albumin 2.9 gm/dL (3.2-5.2); Albumin/Globulin Ratio 1.6 (1.0-2.3); Alkaline Phosphatase 47 U/L (39-117); Bilirubin,Direct < 0.2 mg/dL (0.0-0.3); Blood Urea Nitrogen 11 mg/dl (6-20); Gamma Glutamyl Transpeptidase 8 U/L (5-36); Magnesium 1.9 mg/dL (1.6-2.5); Uric Acid 3.6 mg/dL (2.5-8.0)
[2017-06-13] MEDS ORDERED: OMEPRAZOLE 20 MG CAPSULE PO SCH (07:30)
[2017-06-13 08:13] LABS: Anisocytosis FEW (NONE SEEN); Eosinophils % (Manual) 3 % (0-7); Lymphocytes % 27 % (15-49); Monocytes % (Manual) 9 % (1-12); Platelet Estimate NORMAL (NORMAL); RBC Morphology ABNORM (NORMAL); Segmented Neutrophils % 61 % (38-78)
[2017-06-13] MEDS ORDERED: risperiDONE 1 MG TABLET PO SCH (09:00)
[2017-06-13] MEDS ORDERED: CITALOPRAM 20 MG TABLET PO SCH (09:00)
[2017-06-13] MEDS: ENOXAPARIN 60 MG/0.6 ML SYRINGE SQ SCH (09:14)
[2017-06-13] MEDS: FAMOTIDINE 20 MG TABLET PO SCH (09:15)
[2017-06-13] MEDS ORDERED: FLUTICASONE/SALMETEROL 50/100 INHALER #14 INH SCH (09:54)
[2017-06-13] MEDS: HYDROcodone/APAP 5/325MG TABLET PO PRN (11:20)
[2017-06-13] MEDS ORDERED: WARFARIN 5 MG TABLET PO SCH (14:00)
--- NOTE | 2017-06-13 14:53 | Discharge Summary ---
Medical - DS: Prov Patient information: Note initiated : 06/13/17 at 2:48 pm Service Date, if different from initiated Date: [] Patient: Shelly Marie a 56 y/o F admitted on 06/09/17 for left leg swelling. Chief Complaint: [] Date of admission: 06/09/17 22:29 Discharge date: 06/13/17 Admitting clinician: Rachele Castillo Discharging clinician: Bro Lyons Medical - DS: Meds - Discharge Medications Prescriptions: Enoxaparin [Lovenox] 50 mg SQ BID #10 Warfarin [Coumadin] 5 mg PO DAILY@1400 #30 tablet Active and Home Medications: Home Medications Albuterol Sulfate 1.25 mg IH Q4 PRN 06/10/17 [History Confirmed 06/10/17 Last Taken Unknown] Albuterol Sulfate [Proair Hfa] 2 puff IH Q4-6HP PRN 06/10/17 [History Confirmed 06/10/17 Last Taken Unknown] Citalopram [Celexa] 10 mg PO DAILY 06/10/17 [History Confirmed 06/10/17 Last Taken Unknown] Fluticasone/Salmeterol [Advair 100-50 Diskus] 1 puff INH BID 06/10/17 [History Confirmed 06/10/17 Last Taken Unknown] LORazepam [Ativan] 1 mg PO Q4HP PRN 06/10/17 [History Confirmed 06/10/17 Last Taken Unknown] Nicotine [Nicotine Patch] 21 mg TD DAILY 06/10/17 [History Confirmed 06/10/17 Last Taken Unknown] Omeprazole [Prilosec] 20 mg PO DAILY 06/10/17 [History Confirmed 06/10/17 Last Taken Unknown] predniSONE [Prednisone] 60 mg PO DAILY 06/10/17 [History Confirmed 06/10/17 Last Taken Unknown] risperiDONE [Risperidone Odt] 1 mg PO QAM 06/10/17 [History Confirmed 06/10/17 Last Taken Unknown] traMADol [Ultram] 50 mg PO TIDP PRN 06/10/17 [History Confirmed 06/10/17 Last Taken Unknown] Medical - DS: Hosp Hospital course: Mr. Marie is a 56 year old Female with h/o copd presented to the ER with complaints of left leg swelling and shorntess of breath. The patient recently had a COPD exacerbation, and was being treated with steroids and dunoebs with good response. She notes that she was in her bed for 3 days and when she woke up she had left left swelling and shortness of breath and therefore presented to the ER. She underwent a Duplex of the lower extremity and CT angio which revealed a DVT and PE. CXR was negative PE/ DVT due to prolonged immobilization. patient was treated with SQ lovenox, and started on coumadin, the patient responded to treatment well, she was hypotensive initially but eventually stablized. She is able to self inject, INR today at discharge is 1.6. She remains on coumadin 5mg once daily and enoxaparin 60mg bid. She will need to follow up with the new pcp in 3 days to follow up in the INR and evaluate need for continued lovenox injections. She is been given prescription to last her 5 additional days for lovenox. COPD: She had some sob, which responded well to dunoebs and home dose of advair , no need for steroids this visit. CXR was negative Acute hypoxic resp failure: due to PE, on discharge she is doing well off oxygen saturation 95-96 on room air. The rest of the stay in the hospital was uneventful. She will be discharged home. Discharge diagnosis: DVT, Pulmonary Embolisum - Time Spent with Patient Total time spent providing and/or coordinating discharge services: Greater than 30 minutes Medical - DS: Exam - Constitutional Vitals: Vital Signs Temp Pulse Pulse Resp BP BP BP 06/13/17 13:06 82 16 06/13/17 07:12 82 18 06/13/17 07:00 97.8 F 16 102/64 06/13/17 04:12 97.5 F 16 85/60 06/13/17 00:21 97.4 F 20 90/68 06/13/17 00:00 97.4 F 20 90/68 06/12/17 23:09 06/12/17 21:09 06/12/17 20:44 06/12/17 20:40 06/12/17 20:35 06/12/17 20:00 98.5 F 20 114/76 06/12/17 19:32 86 20 06/12/17 19:27 06/12/17 18:30 96 H 06/12/17 17:46 114/102 06/12/17 17:43 87 107/74 06/12/17 16:00 98.1 F 20 107/58 Pulse Ox 06/13/17 13:06 06/13/17 07:12 98 06/13/17 07:00 96 06/13/17 04:12 95 06/13/17 00:21 96 06/13/17 00:00 96 06/12/17 23:09 87 L 06/12/17 21:09 93 06/12/17 20:44 88 L 06/12/17 20:40 93 06/12/17 20:35 97 06/12/17 20:00 97 06/12/17 19:32 06/12/17 19:27 97 06/12/17 18:30 95 06/12/17 17:46 06/12/17 17:43 97 06/12/17 16:00 96 Intake and Output 06/13/17 06/13/17 06/13/17 05:59 13:59 21:59 Intake Total 50 / 50 360 / 360 Output Total 200 / 200 Balance -150 / -150 360 / 360 Intake: Oral 50 / 50 360 / 360 Output: Void Amount 200 / 200 Other: Meal Breakfast Percent of Meal Consumed 100% Additional comments: Constitutional; Afebrile, cooperative, alert, not in distress. Eyes- No icterus, , No periorbital swelling Ears- Ext ear normal, hearing normal to conversation. Neck- Midline trachea, supple Respiratory system: Air Entry equal on both sides, No crackles or wheezing, no rhonchi. CVS- Rate rhythm regular, S1,S2 heard, no gallop, no rub. Abdomen- Soft nontender abdomen, no organomegaly, no tenderness, no guarding or rigidity, [employer]- AOOx3, moving all extremities, no gross focal deficit noted. Left leg swelling noted, DP pulses present, foot warm and pink Medical - DS: Data Labs on day of discharge: Labs from last 24 hours 06/13/17 06/13/17 06/13/17 03:02 03:02 03:02 WBC 5.7 RBC 3.71 L Hgb 11.3 L Hct 34.0 L MCV 91.5 MCH 30.4 MCHC 33.2 RDW 15.6 H Plt Count 192 MPV 8.4 Total Counted 100 Seg Neutrophils % 61 Band Neutrophils % Not Reportable Lymphocytes % 27 Monocytes % (Manual) 9 Eosinophils % (Manual) 3 Nucleated RBCs 1 H Platelet Estimate Normal RBC Morphology Abnorm A Anisocytosis Few A PT 19.6 H INR 1.6 H Sodium 141 Potassium 3.6 Chloride 100 Carbon Dioxide 36 H Anion Gap 5.0 L BUN 11 Creatinine 0.7 GFR Calculation 96 Glucose 84 Uric Acid 3.6 Calcium 8.1 L Phosphorus 3.3 Magnesium 1.9 Total Bilirubin < 0.2 Direct Bilirubin < 0.2 GGT 8 AST 11 ALT 8 Alkaline Phosphatase 47 Lactate Dehydrogenase 149 Total Protein 4.7 L Albumin 2.9 L Globulin 1.8 L Albumin/Globulin Ratio 1.6 Triglycerides 110 Medical - DS: A/P - Patient/Caregiver Discharge Instructions Activity: increase activity as tolerated Diet: Cardiac Additional Instructions: Go to ER if any bleeding, black stools or new onset dizziness. Follow up with your new pcp on Sunday for INR check and establish visit. go to ER if any shortness of breath, fever or any other concerning symptom You have been started on Coumadin which is a blood thinner for treatment of Clot in the leg and the lungs, You will likely need to be on treatment for 6 months or longer if decided by your PCP. You are at a higher risk of bleeding, avoid any contact sports and use of heavy machinery while using this mediation. You will bleed and bruise more easily as a result of this medication. Prescriptions: Enoxaparin [Lovenox] 50 mg SQ BID #10 Warfarin [Coumadin] 5 mg PO DAILY@1400 #30 tablet - Follow up Plan Follow up with: Gretel Huang DO [Physician] - 06/15/17 12:00 pm (Please arrive 15 minutes early) Disposition: Home, Self-Care Prognosis: Fair Rehab Potential: Fair I certify that the patient requires SNF services: No Overall status at discharge: patient is progressing back to baseline Medical - DS: Qual - VTE Deep Vein Thrombosis/Pulmonary Embolism Present on Admission: Yes
== END 2017-06-13 18:28 | disposition home or self-care (01) | DRG 175 ==
LOC: ICU 18:55 → ED 18:55 → OBSVTOIN 22:29 → ICU 22:30
PROVIDERS: ADMIT Internal Medicine; ATTEND Internal Medicine

== ENCOUNTER 2017-06-26 16:00 | Inpatient (IN) ==
[2017-06-26] MEDS ORDERED: IPRATROPIUM/ALBUTEROL 3 ML AMPUL.NEB NEB ONE (16:09)
[2017-06-26 17:16] LABS: Basophils # (Auto) 0.1 K/mcL (0.0-0.3); Basophils % (Auto) 0.7 % (0.0-2.0); Eosinophils # (Auto) 0.2 K/mcL (0.0-0.7); Eosinophils % (Auto) 1.7 % (0.0-7.0); Granulocytes % (Auto) 65.2 % (38.0-78.0); Lymphocytes # (Auto) 2.7 K/mcL (1.5-4.8); Lymphocytes % (Auto) 24.1 % (15.5-49.0); Mean Cell Volume 91.5 fL (80.0-100.0); Mean Corpuscular HGB Conc 32.7 g/dL (31.0-36.0); Mean Corpuscular Hemoglobin 29.9 pg (26.0-34.0); Monocytes # (Auto) 0.9 K/mcL (0.1-0.9); Monocytes % (Auto) 8.3 % (1.0-12.0); Platelet Count 407 K/mcL (140-440); Red Cell Distribution Width 16.2 % (11.5-14.5)
[2017-06-26 17:35] LABS: ALT/SGPT 13 U/l (0-40); Albumin 4.4 gm/dL (3.2-5.2); Alkaline Phosphatase 81 U/L (39-117); Blood Urea Nitrogen 12 mg/dl (6-20); C-Reactive Protein 0.3 mg/dl (0.0-0.8)
--- NOTE | 2017-06-26 17:43 | XRay Report ---
CLINICAL INFORMATION: Shortness of breath COMPARISON: 06/12/2017 FINDINGS: Heart size, mediastinum and pulmonary vessels are normal. Moderate COPD changes again noted. There is minimal scarring and/or atelectasis in both lower lobes, but no narda infiltrates. No effusions IMPRESSION: Stable moderate COPD changes. Minor bibasilar atelectasis Interpreted and Authenticated by: Reggie Calvillo 06/26/17
[2017-06-26] MEDS ORDERED: LORazepam 2 MG/ML VIAL IV ONE (17:49)
--- NOTE | 2017-06-26 17:53 | Emergency Department Note ---
SOB HPI - General Source: patient Mode of arrival: ambulatory - History of Present Illness MD Complaint: shortness of breath, anxiety Severity: severe Consistency/Duration: constant (Worsening over the past 3 days) Improves with: nothing, other (Oxygen saturation was 70% on room air on her arrival.) Worsens with: exertion Known history of: COPD, DVT Associated symptoms: Reports: pain with inspiration, wheezing, orthopnea, lower extremity pain (Left foot that is red and swollen and has known DVT), diaphoresis, sense of impending doom. Denies: chest pain, fever, cough, parasthesias, palpitations, nausea/vomiting, syncope <Yaneth Coburn - Last Filed: 06/26/17 17:50> <Carl Gaston - Last Filed: 06/26/17 19:32> - General Chief Complaint: Shortness of Breath/Dyspnea Stated Complaint: SOB, anxiety Time Seen by Provider: 06/26/17 16:15 - History of Present Illness 6-year-old female presents with severe shortness of breath and anxiety. Onset 3 days ago. States she has known COPD and gets anxious from time to time but the last 3 days this has been severe. She reports diaphoresis and trouble breathing. States she cannot stop shaking because she is anxious because she cannot breath. She reports that she has been treated for multiple PEs and DVTs currently and is on Coumadin. Onset between 2 and 3 weeks ago with a DVTs and PEs. She was in ICU for a few days and was discharged home. States she was doing better until the last 3 days. Denies fever or chills. No nausea, vomiting, or diarrhea. She does have a left foot that is red swollen and warm to touch which she reports is due to the DVTs. She states it has been like that for the last couple weeks since she was diagnosed. States she does not have any medication for anxiety at home and if she is not sure if this is anxiety or related to the PE is or what is going on. States this is the most severe she has ever had trouble with her breathing. (Yaneth Coburn) - Related Data Home Medications Medication Instructions Recorded Confirmed Albuterol Sulfate 1.25 mg IH Q4 PRN 06/10/17 06/10/17 Albuterol Sulfate [Proair Hfa] 2 puff IH Q4-6HP PRN 06/10/17 06/10/17 Citalopram [Celexa] 10 mg PO DAILY 06/10/17 06/10/17 Fluticasone/Salmeterol [Advair 1 puff INH BID 06/10/17 06/10/17 100-50 Diskus] Nicotine [Nicotine Patch] 21 mg TD DAILY 06/10/17 06/10/17 Omeprazole [Prilosec] 20 mg PO DAILY 06/10/17 06/10/17 risperiDONE [Risperidone Odt] 1 mg PO QAM 06/10/17 06/10/17 traMADol [Ultram] 50 mg PO TIDP PRN 06/10/17 06/10/17 Previous Rx's Medication Instructions Recorded Enoxaparin [Lovenox] 50 mg SQ BID #10 06/13/17 Warfarin [Coumadin] 5 mg PO DAILY@1400 #30 tablet 06/13/17 Allergies Allergy/AdvReac Type Severity Reaction Status Date / Time No Known Drug Allergies Allergy Verified 06/06/17 13:42 Review of Systems All systems ED: reviewed and negative except as stated. <Yaneth Coburn - Last Filed: 06/26/17 17:50> Past Medical History - Past Medical History Medical history: Reports: COPD, other (PE, DVT) Surgical history ED: Reports: non-contributory Psychiatric history: Reports: anxiety - Social History smoking status: Current every day smoker Packs per day: 0.5 Alcohol use: Reports: None Drug use: Reports: none <Yaneth Coburn - Last Filed: 06/26/17 17:50> Physical Exam - General Limitations: no limitations General appearance: anxious, other (Diaphoretic. Use of accessory muscles. Labored breathing with a rate of 34 on arrival. Oxygen saturation 78% on room air on arrival.) - Head Head exam: atraumatic, normocephalic, normal inspection - Eye Eye exam: Present: normal appearance. Absent: conjunctival injection - ENT ENT exam: normal exam, normal oropharynx, mucous membranes moist, TM's normal bilaterally, normal external ear exam - Neck Neck exam: Present: normal inspection, full ROM, trachea midline. Absent: tenderness, lymphadenopathy - Chest Chest inspection: Present: normal inspection, symmetric chest wall rise - Respiratory Respiratory exam: Present: respiratory distress (Mild to moderate with accessory muscle use and tachypnea with a rate of 34. Oxygen sats 78% on room air. In the mid 90s with 3 L of oxygen.), wheezes (Expiratory wheezes in bases bilaterally and diminished bilaterally. Otherwise clear throughout), accessory muscle use (Moderate). Absent: stridor - Cardiovascular Cardiovascular exam: Present: regular rate, normal heart sounds - Extremities Exam Extremities exam: Present: full ROM, normal capillary refill, other (The left foot has diffuse edema and redness. Mildly tender to touch. Warm throughout. No drainage. Skin is intact.) - Neurological Exam Neurological exam: Present: alert, oriented X3 (Speaking 2-3 words at a time due to shortness of breath.) - Psychiatric Psychiatric exam: Present: agitated, anxious - Skin Skin exam: Present: warm, intact, normal color, diaphoresis <Yaneth Coburn - Last Filed: 06/26/17 17:50> Vital Signs Pulse Oximetry (%) 80 L 06/26/17 16:00 Temperature 97.1 F 06/26/17 16:02 Pulse Rate 84 06/26/17 19:15 Respiratory Rate 15 06/26/17 19:30 Blood Pressure 97/60 06/26/17 19:30 Pulse Oximetry (%) 91 06/26/17 19:15 Shortness of Breath/Dyspnea - Lab Data Lab results reviewed: Yes I reviewed the patient's lab results. Result diagrams: 06/26/17 16:49 06/26/17 16:49 - Radiology Data Radiology results reviewed: Yes I reviewed the patient's radiology results. <Yaneth Coburn - Last Filed: 06/26/17 17:50> - Lab Data Result diagrams: 06/26/17 16:49 06/26/17 16:49 <Carl Gaston - Last Filed: 06/26/17 19:32> - MDM Narrative Medical decision making narrative: her INR was normal. She is not anticoagulated this we'll need to stay forPE treatment. As she is hypoxic. (Carl Gaston) - Lab Data Lab Results 06/26/17 06/26/17 06/26/17 Range/Units 16:35 16:35 16:35 WBC (4.5-11.0) K/mcL RBC (4.00-5.20) M/mcL Hgb (12.0-15.0) g/dL Hct (36.0-48.0) % MCV (80.0-100.0) fL MCH (26.0-34.0) pg MCHC (31.0-36.0) g/dL RDW (11.5-14.5) % Plt Count (140-440) K/mcL MPV (7.4-10.4) fL Gran % (38.0-78.0) % Lymph % (Auto) (15.5-49.0) % Randall % (Auto) (1.0-12.0) % Eos % (Auto) (0.0-7.0) % Baso % (Auto) (0.0-2.0) % Gran # (1.8-8.0) K/mcL Lymph # (Auto) (1.5-4.8) K/mcL Randall # (Auto) (0.1-0.9) K/mcL Eos # (Auto) (0.0-0.7) K/mcL Baso # (Auto) (0.0-0.3) K/mcL PT 12.8 (11.9-14.5) sec INR 0.9 (0.9-1.1) VBG Lactic Acid 1.6 (0.5-2.2) mmol/L Sodium (133-145) mmol/L Potassium (3.3-5.1) mmol/L Chloride (96-108) mmol/L Carbon Dioxide (22-30) mmol/L Anion Gap (8-16) BUN (6-20) mg/dl Creatinine (0.6-1.1) mg/dl GFR Calculation Glucose (70-105) mg/dL Calcium (8.6-10.4) mg/dl Total Bilirubin (0.0-1.0) mg/dL AST (0-37) U/l ALT (0-40) U/l Alkaline Phosphatase (39-117) U/L Troponin T (0-0.03) ng/ml C-Reactive Protein (0.0-0.8) mg/dl NT-Pro-B Natriuret Pep 256.1 H (0-125) pg/ml Total Protein (5.9-8.4) gm/dL Albumin (3.2-5.2) gm/dL Globulin (2.2-3.7) gm/dL Albumin/Globulin Ratio (1.0-2.3) 06/26/17 06/26/17 06/26/17 Range/Units 16:49 16:49 16:49 WBC 11.1 H (4.5-11.0) K/mcL RBC 4.60 (4.00-5.20) M/mcL Hgb 13.8 (12.0-15.0) g/dL Hct 42.1 (36.0-48.0) % MCV 91.5 (80.0-100.0) fL MCH 29.9 (26.0-34.0) pg MCHC 32.7 (31.0-36.0) g/dL RDW 16.2 H (11.5-14.5) % Plt Count 407 (140-440) K/mcL MPV 8.6 (7.4-10.4) fL Gran % 65.2 (38.0-78.0) % Lymph % (Auto) 24.1 (15.5-49.0) % Randall % (Auto) 8.3 (1.0-12.0) % Eos % (Auto) 1.7 (0.0-7.0) % Baso % (Auto) 0.7 (0.0-2.0) % Gran # 7.3 (1.8-8.0) K/mcL Lymph # (Auto) 2.7 (1.5-4.8) K/mcL Randall # (Auto) 0.9 (0.1-0.9) K/mcL Eos # (Auto) 0.2 (0.0-0.7) K/mcL Baso # (Auto) 0.1 (0.0-0.3) K/mcL PT (11.9-14.5) sec INR (0.9-1.1) VBG Lactic Acid (0.5-2.2) mmol/L Sodium 138 (133-145) mmol/L Potassium 4.1 (3.3-5.1) mmol/L Chloride 96 (96-108) mmol/L Carbon Dioxide 27 (22-30) mmol/L Anion Gap 15.0 (8-16) BUN 12 (6-20) mg/dl Creatinine 0.9 (0.6-1.1) mg/dl GFR Calculation 71 Glucose 157 H (70-105) mg/dL Calcium 9.0 (8.6-10.4) mg/dl Total Bilirubin 0.6 (0.0-1.0) mg/dL AST 17 (0-37) U/l ALT 13 (0-40) U/l Alkaline Phosphatase 81 (39-117) U/L Troponin T < 0.01 (0-0.03) ng/ml C-Reactive Protein 0.3 (0.0-0.8) mg/dl NT-Pro-B Natriuret Pep (0-125) pg/ml Total Protein 6.6 (5.9-8.4) gm/dL Albumin 4.4 (3.2-5.2) gm/dL Globulin 2.2 (2.2-3.7) gm/dL Albumin/Globulin Ratio 2.0 (1.0-2.3) Disposition Pt seen by PLANT ASSOCIATE/PA only: No <Yaneth Coburn - Last Filed: 06/26/17 17:50> Pt seen by PLANT ASSOCIATE/PA only: No <Carl Gaston - Last Filed: 06/26/17 19:32> Clinical Impression: Dyspnea, Anxiety, Pulmonary embolism, DVT (deep venous thrombosis), Hyperventilation, Deep vein thrombosis of lower extremity Disposition: Xfer As Inpt ([facility]) Condition: Fair
[2017-06-26 18:14] LABS: proBNP 256.1 pg/ml (0-125)
[2017-06-26] MEDS ORDERED: ENOXAPARIN 60 MG/0.6 ML SYRINGE SQ ONE (19:33)
--- NOTE | 2017-06-26 21:50 | Internal Med History&Physical ---
Medical - H&P: HPI Patient information: Note initiated : 06/26/17 at 9:43 pm Service Date, if different from initiated Date: [] Patient: Shelly Marie a 56 y/o F admitted on for SOB, anxiety. Chief Complaint: [] History of present illness: Ms. Marie is a 56 year old F Who was recently admitted to the hospital service on 06/09/17 with extensive left lower extremity DVT also found to have a single small PE. She was discharged with self injections of Lovenox bridging to Coumadin and instructions to follow-up with a new PCP. She presented to the ER today with a three-day history of anxiety and trouble breathing. She was found to be hypoxic, saturating 78% on room air initially requiring 10 L of oxygen. She is a poor historian but is able to tell me that she has not been on any blood thinners because "nobody told me to". She is not follow-up with her primary care physician because she did not have transportation. She has not had any fevers or chills. She denies any wheezing. She is fairly somnolent in the ER, requiring constant stimulation to obtain any history from her. She states her left leg swelling has not changed from prior. Review systems: Limited secondary to patient's somnolence. A comprehensive review of systems was attempted with pertinent findings stated in HPI. Past medical history: COPD with continued tobacco abuse Anxiety GERD Methamphetamine abuse Prior history of suicide attempt Past surgical history: Tonsillectomy and plastic surgery to the face following trauma Family history is obtained from review of the medical record and is positive for alcoholism and lung cancer in her father Social history: She lives with her boyfriend. 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 She smokes one pack of cigarettes daily and has since she was 16. She drinks "a couple of drinks a day" depending on what kind of days. She currently snorts meth with her last use last week. Medical - H&P: Meds Home Medications Medication Instructions Recorded Confirmed Type Albuterol Sulfate 1.25 mg IH Q4 PRN 06/10/17 06/10/17 History Albuterol Sulfate [Proair Hfa] 2 puff IH Q4-6HP PRN 06/10/17 06/10/17 History Citalopram [Celexa] 10 mg PO DAILY 06/10/17 06/10/17 History Fluticasone/Salmeterol [Advair 1 puff INH BID 06/10/17 06/10/17 History 100-50 Diskus] Nicotine [Nicotine Patch] 21 mg TD DAILY 06/10/17 06/10/17 History Omeprazole [Prilosec] 20 mg PO DAILY 06/10/17 06/10/17 History risperiDONE [Risperidone Odt] 1 mg PO QAM 06/10/17 06/10/17 History traMADol [Ultram] 50 mg PO TIDP PRN 06/10/17 06/10/17 History Enoxaparin [Lovenox] 50 mg SQ BID #10 06/13/17 Rx Warfarin [Coumadin] 5 mg PO DAILY@1400 #30 tablet 06/13/17 Rx Allergies Allergy/AdvReac Type Severity Reaction Status Date / Time No Known Drug Allergies Allergy Verified 06/06/17 13:42 Medical - H&P: Exam - Constitutional Vitals: Temp Pulse Resp BP Pulse Ox 97.1 F 79 15 99/63 98 06/26/17 16:02 06/26/17 21:27 06/26/17 21:27 06/26/17 21:15 06/26/17 21:27 Exam: This is an unkempt woman, sleeping soundly in bed. She awakens easily to voice , but requires constant stimulation to carry on conversation. - Head Head exam: Present: atraumatic - Eye Eye exam: Present: PERRL. Absent: conjunctival injection, scleral icterus - ENT ENT exam: Present: mucous membranes moist, normal external ear exam - Neck Neck exam: Absent: lymphadenopathy, tenderness - Respiratory Respiratory exam: Present: normal respiratory exam. Absent: respiratory distress, wheezes - Cardiovascular Cardiovascular exam: Present: normal rate and rhythm. Absent: systolic murmur - GI/Abdominal GI/Abdominal exam: Present: normal bowel sounds, soft. Absent: tenderness - Rectal Rectal exam: Present: deferred - Extremities Exam Additional comments: Extremities exam is limited secondary to patient still wearing her jeans. She has left foot and leg swelling to the mid calf with erythema but no warmth. - Neurological Exam Additional comments: She is somnolent. Speech is fluent. She has no focal motor sensory deficit - Psychiatric Additional comments: unable to assess secondary to somnolence - Skin Additional comments: Multiple well-healed scars over her chest and back Medical - H&P: Reslt - Labs CBC & Chem 7: 06/26/17 16:49 06/26/17 16:49 Labs: Short CBC 06/26/17 Range/Units 16:49 WBC 11.1 H (4.5-11.0) K/mcL Hgb 13.8 (12.0-15.0) g/dL Hct 42.1 (36.0-48.0) % Plt Count 407 (140-440) K/mcL BMP 06/26/17 16:49 Sodium 138 Potassium 4.1 Chloride 96 Carbon Dioxide 27 BUN 12 Creatinine 0.9 Glucose 157 H Calcium 9.0 Cardiac Enzymes 06/26/17 Range/Units 16:49 Troponin T < 0.01 (0-0.03) ng/ml Liver Function 06/26/17 Range/Units 16:49 Total Bilirubin 0.6 (0.0-1.0) mg/dL AST 17 (0-37) U/l ALT 13 (0-40) U/l Alkaline Phosphatase 81 (39-117) U/L Albumin 4.4 (3.2-5.2) gm/dL - EKG Data -: EKG Interpreted by Myself, EKG Reviewed by Myself - EKG Data EKG comments: EKG showssinus rhythm with P pulmonale and nonspecific intraventricular conduction delay. No ischemic ST or T-wave changes 06/26/17 21:54 - Impressions Chest x-ray is negative for acute changes. Medical - H&P: A/P - Narrative A/P Narrative: #Acute hypoxic respiratory failure: Strongly suspect that she now has worsening PE from her untreated DVT. The P-pulmonology on her EKG supports this could also be related to COPD. She has no evidence of COPD exacerbation or pneumonia. With her somnolence, we'll check an ABG as she may need BiPAP. We' ll start Lovenox twice a day bridging to Coumadin. #Somnolence--check ABG as above. She received Ativan and morphine in the ER. #PE/DVT--see prior admission documentation. 2/2 immobilization with COPD exacerbation. anticoagulation as above. We'll discuss with pharmacy whether a novel anticoagulant is an option for her #Anxiety-- Poor candidate for benzodiazepine use. Trial of Buspar. Consider SSRI as OP. #COPD with continued tobacco abuse--Scheduled and as needed nebs. Nicotine patch. Counseled on cessation for 3 minutes. #meth use--Admits to use last week. Check HIV and hepatitis C #nonadherence--OT cog eval. SW consult #DVT ppx: Lovenox as above #Code: Full
[2017-06-26] MEDS ORDERED: ALBUTEROL SULFATE 2.5 MG/3 ML NEBULIZER NEB PRN (22:00)
[2017-06-26] MEDS ORDERED: SENNOSIDES 1 TABLET PO PRN (22:00)
[2017-06-26] MEDS ORDERED: ACETAMINOPHEN 325 MG TABLET PO PRN (22:00)
[2017-06-26] MEDS: IPRATROPIUM/ALBUTEROL 3 ML AMPUL.NEB NEB SCH (22:38)
[2017-06-26] MEDS ORDERED: WARFARIN 5 MG TABLET PO SCH (23:00)
[2017-06-27] MEDS: IPRATROPIUM/ALBUTEROL 3 ML AMPUL.NEB NEB SCH ×2 (03:05→07:16)
[2017-06-27 04:38] LABS: Mean Cell Volume 91.6 fL (80.0-100.0); Mean Corpuscular HGB Conc 32.8 g/dL (31.0-36.0); Mean Corpuscular Hemoglobin 30.1 pg (26.0-34.0); Platelet Count 352 K/mcL (140-440); RBC 4.11 M/mcL (4.00-5.20); Red Cell Distribution Width 16.3 % (11.5-14.5)
[2017-06-27 05:16] LABS: Blood Urea Nitrogen 16 mg/dl (6-20)
[2017-06-27 05:43] LABS: Anisocytosis 1+ (NONE SEEN); Eosinophils % (Manual) 6 % (0-7); Lymphocytes % 28 % (15-49); Monocytes % (Manual) 6 % (1-12); Platelet Estimate NORMAL (NORMAL); RBC Morphology ABNORM (NORMAL); Segmented Neutrophils % 58 % (38-78)
--- NOTE | 2017-06-27 06:04 | Internal Med Progress Note ---
Medical - PN: Subj Patient information: Note initiated : 06/27/17 at 6:01 am Service Date, if different from initiated Date: [] Patient: Shelly Marie a 56 y/o F admitted on 06/26/17 for SOB, anxiety. Chief Complaint: [] Interval history: 06/26 HPI: Ms. Marie is a 56 year old F Who was recently admitted to the hospital service on 06/09/17 with extensive left lower extremity DVT also found to have a single small PE attributed to immobilization while in bed for COPD exacerbation. She was discharged with self injections of Lovenox bridging to Coumadin and instructions to follow-up with a new PCP. She presented to the ER today with a three-day history of anxiety and trouble breathing. She was found to be hypoxic , saturating 78% on room air initially requiring 10 L of oxygen. She is a poor historian but is able to tell me that she has not been on any blood thinners because "nobody told me to". She is not follow-up with her primary care physician because she did not have transportation. She has not had any fevers or chills. She denies any wheezing. She is fairly somnolent in the ER, requiring constant stimulation to obtain any history from her. She states her left leg swelling has not changed from prior. 06/27: Vital signs are stable. ABG last night did not show acidosis although she is a CO2 retainer with PCO2 55 and a normal pH. She has been weaned off O2. She does not know why her foot is swollen and seems surprised when I tell her she had a blood clot in her lungs. She remembers she was supposed to take the Lovenox but doesn't remember anything about Coumadin. Pertinent ROS: no fever or nausea - Constitutional Vitals: Vital Signs Temp Pulse Resp BP Pulse Ox 99.0 F H 88 20 92/63 99 06/27/17 04:00 06/27/17 04:00 06/27/17 04:00 06/27/17 04:00 06/27/17 04:00 Period Temp Pulse Resp BP Sys/Christian Pulse Ox Last 24 Hr 97.8 F-99.0 F 77-98 18-20 92/63 95-99 Intake & Output: Intake & Output 08/01/17 08/02/17 08/02/17 21:59 05:59 13:59 Other: # Voids 1 Exam: General: Appears older than stated age. Continual tongue thrusting Respiratory: No acute respiratory distress. Lungs are clear to auscultation bilaterally CV: Regular rate and rhythm Neuro: Alert and oriented 3.? Cognitive deficit. She does not seem to retain knowledge easily Psych: Anxious Medical - PN: Obj Da - Labs CBC & Chem 7: 06/27/17 03:41 06/27/17 03:41 Labs: Abnormal Lab Results 06/27/17 06/27/17 03:41 03:41 RDW 16.3 H RBC Morphology Abnorm A Anisocytosis 1+ A Carbon Dioxide 34 H Anion Gap 7.0 L Meds: Medications Acetaminophen (Tylenol) 650 mg PO Q6HP PRN PRN Reason: PAIN/FEVER > 101 Albuterol Sulfate (Ventolin) 2.5 mg NEB Q4HRT PRN PRN Reason: Dyspnea Albuterol/Ipratropium (Duoneb) 3 ml NEB Q4HRT [facility] Last Admin: 06/27/17 03:05 Dose: 3 ml Buspirone HCl (Buspar) 5 mg PO BID [facility] Enoxaparin Sodium (Lovenox) 60 mg SQ DAILY [facility] Senna (Senokot) 2 tab PO HSP PRN PRN Reason: Constipation Warfarin Sodium (Coumadin Per Pharmacy) 1 order PO DAILY@1400 [facility] Medical - PN: A/P - Time Spent With Patient Total time spent is greater than 50% in coordination of care (as documented) at patient's floor/unit and/or counseling patient: 25 - 35 minutes - Narrative A/P Narrative: #Acute hypoxic respiratory failure: Strongly suspect that she now has worsening PE from her untreated DVT; as imaging will not change treatment at this point, will not repeat CT. Has p-pulmonale on EKG. Continue Lovenox twice a day bridging to Coumadin. INR 1.0 #Somnolence--2/2 Ativan and morphine in the ER; no e/o respiratory acidosis. #PE/DVT--see prior admission documentation 06/06/17. 2/2 immobilization with COPD exacerbation. anticoagulation as above. Discuss with pharmacy whether a novel anticoagulant is an option for her #Anxiety-- Poor candidate for benzodiazepine use. Trial of Buspar. Consider SSRI as OP. #COPD with continued tobacco abuse--Scheduled and as needed nebs. Nicotine patch. Counseled on cessation for 3 minutes. #meth use--Admits to use last week. f/U HIV and hepatitis C #nonadherence--OT cog eval. SW consult #DVT ppx: Lovenox as above #Code: Full Medical - PN: Qual - VTE Deep Vein Thrombosis/Pulmonary Embolism Present on Admission: Yes
[2017-06-27] MEDS: busPIRone 5 MG TABLET PO SCH ×2 (08:01→21:15)
[2017-06-27] MEDS ORDERED: ENOXAPARIN 60 MG/0.6 ML SYRINGE SQ SCH (09:00)
[2017-06-27] MEDS ORDERED: WARFARIN 5 MG TABLET PO ONE (17:30)
[2017-06-27] MEDS ORDERED: VANCOMYCIN 1,000 MG in 0.9 % SODIUM CHLORIDE 250 ML IV ONE (20:49)
[2017-06-27] MEDS: ENOXAPARIN 40 MG/0.4 ML SYRINGE SQ SCH (21:16)
[2017-06-27] MEDS ORDERED: LORazepam 2 MG/ML VIAL IV ONE (22:44)
[2017-06-27] MEDS ORDERED: LORazepam 2 MG/ML VIAL ONE (22:51)
[2017-06-27] MEDS ORDERED: VANCOMYCIN 500 MG VIAL ONE (23:37)
[2017-06-28 05:49] LABS: Basophils # (Auto) 0 K/mcL (0.0-0.3); Basophils % (Auto) 0.3 % (0.0-2.0); Eosinophils # (Auto) 0.2 K/mcL (0.0-0.7); Eosinophils % (Auto) 3.4 % (0.0-7.0); Granulocytes % (Auto) 54.5 % (38.0-78.0); Lymphocytes # (Auto) 2.1 K/mcL (1.5-4.8); Mean Cell Volume 92.1 fL (80.0-100.0); Mean Corpuscular HGB Conc 33.1 g/dL (31.0-36.0); Mean Corpuscular Hemoglobin 30.5 pg (26.0-34.0); Monocytes # (Auto) 0.7 K/mcL (0.1-0.9); Monocytes % (Auto) 9.8 % (1.0-12.0); Platelet Count 317 K/mcL (140-440); RBC 3.99 M/mcL (4.00-5.20)
[2017-06-28 06:15] LABS: Blood Urea Nitrogen 20 mg/dl (6-20)
[2017-06-28] MEDS ORDERED: VANCOMYCIN PER PHARMACY IV SCH (07:44)
[2017-06-28] MEDS: ENOXAPARIN 40 MG/0.4 ML SYRINGE SQ SCH ×2 (09:27→21:20)
[2017-06-28] MEDS: busPIRone 5 MG TABLET PO SCH ×2 (09:27→21:19)
[2017-06-28] MEDS: VANCOMYCIN 750 MG in 0.9 % SODIUM CHLORIDE 250 ML IV SCH ×2 (09:27→21:19)
[2017-06-28] MEDS: IPRATROPIUM/ALBUTEROL 3 ML AMPUL.NEB NEB SCH ×3 (11:30→19:08)
--- NOTE | 2017-06-28 12:31 | Internal Med Progress Note ---
Medical - PN: Subj Patient information: Note initiated : 06/28/17 at 12:29 pm Service Date, if different from initiated Date: [] Patient: Shelly Marie a 56 y/o F admitted on 06/26/17 for SOB, Anxiety/Dyspnea, Pulmonary Embolism, DVT. Chief Complaint: [] Interval history: 06/26 HPI: Ms. Marie is a 56 year old F Who was recently admitted to the hospital service on 06/09/17 with extensive left lower extremity DVT also found to have a single small PE attributed to immobilization while in bed for COPD exacerbation. She was discharged with self injections of Lovenox bridging to Coumadin and instructions to follow-up with a new PCP. She presented to the ER today with a three-day history of anxiety and trouble breathing. She was found to be hypoxic , saturating 78% on room air initially requiring 10 L of oxygen. She is a poor historian but is able to tell me that she has not been on any blood thinners because "nobody told me to". She is not follow-up with her primary care physician because she did not have transportation. She has not had any fevers or chills. She denies any wheezing. She is fairly somnolent in the ER, requiring constant stimulation to obtain any history from her. She states her left leg swelling has not changed from prior. 06/27: Vital signs are stable. ABG last night did not show acidosis although she is a CO2 retainer with PCO2 55 and a normal pH. She has been weaned off O2. She does not know why her foot is swollen and seems surprised when I tell her she had a blood clot in her lungs. She remembers she was supposed to take the Lovenox but doesn't remember anything about Coumadin. 06/28: patient seen and examined, overnight she had an episode of panic attack. She was acutely short of breath just wanted to use of Ativan. I also ordered a DuoNeb for her. According to the nurse there was no wheezing. The patient this morning notes that she is tired but does not endorse any worsening shortness of breath, no chest pain, no nausea, vomiting, no abdominal pain. The dose of buspar has been increased to help manage her anxiety. the patient's blood culture was positive for gram-positive cocci. She has a low -grade fever this morning, I will get a urinalysis, chest x-ray she has been started on vancomycin and repeat set of blood cultures ordered. We will await the results of the blood cultures and try and determine the source of fever. Otherwise, patient is hemodynamically stable, her labs did not show any leukocytosis, BMP is okay. I reviewed with the patient on what happened after she was discharged last time , she admits to picking up the Lovenox as well as Coumadin. This time around, but just did not take the Coumadin. She notes that she was doing drugs again after she was discharged from the hospital. Pertinent ROS: Denies headache, dizziness Denies chest pain, palpitations Denies cough or shortness of breath Denies abdominal pain, nausea or vomiting. - Constitutional Vitals: Vital Signs Temp Pulse Resp BP Pulse Ox 100.6 F H 90 16 109/64 95 06/28/17 12:00 06/28/17 12:00 06/28/17 12:00 06/28/17 12:00 06/28/17 12:00 Period Temp Pulse Resp BP Sys/Christian Pulse Ox Last 24 Hr 97.4 F-100.6 F 69-90 16-30 92-109/57-81 92-95 Intake and Output 06/27/17 06/28/17 06/28/17 21:59 05:59 13:59 Intake Total 1020 / 1020 730 / 730 Output Total 100 / 100 Balance 920 / 920 730 / 730 Weight 104 lb Intake & Output: Intake & Output 06/27/17 06/28/17 06/28/17 21:59 05:59 13:59 Intake Total 1020 / 1020 730 / 730 Output Total 100 / 100 Balance 920 / 920 730 / 730 Weight 104 lb Intake: IV 250 / 250 Vancomycin 750 mg In 250 / 250 Sodium Chloride 0.9% 250 ml @ 250 mls/hr IV Q12H [facility] Rx#:[id number] Oral 1020 / 1020 480 / 480 Output: Void Amount 100 / 100 Other: Meal Dinner Breakfast Percent of Meal Consumed 75% 75% Feeding Ability Assist with Tray Set Up Independent # Voids 1 3 1 Exam: Constitutional; Afebrile, cooperative, alert, not in distress. Eyes- No icterus, , No periorbital swelling Ears- Ext ear normal, hearing normal to conversation. Neck- Midline trachea, supple Respiratory system: Air Entry equal on both sides, but janine decreased air entry. No crackles or wheezing, no rhonchi. CVS- Rate rhythm regular, S1,S2 heard, no gallop, no rub. Abdomen- Soft nontender abdomen, no organomegaly, no tenderness, no guarding or rigidity, TOOTH CUTTER- AOOx3, moving all extremities, no gross focal deficit noted. Medical - PN: Obj Da - Labs CBC & Chem 7: 06/28/17 04:07 06/28/17 04:07 Labs: Abnormal Lab Results 06/28/17 06/28/17 06/28/17 04:07 04:07 04:07 RBC 3.99 L RDW 16.0 H RBC Morphology Anisocytosis PT 16.0 H INR 1.2 H Carbon Dioxide Anion Gap Calcium 8.2 L 06/27/17 06/27/17 03:41 03:41 RBC RDW 16.3 H RBC Morphology Abnorm A Anisocytosis 1+ A PT INR Carbon Dioxide 34 H Anion Gap 7.0 L Calcium Meds: Medications Acetaminophen (Tylenol) 650 mg PO Q6HP PRN PRN Reason: PAIN/FEVER > 101 Albuterol Sulfate (Ventolin) 2.5 mg NEB Q4HRT PRN PRN Reason: Dyspnea Last Admin: 06/27/17 22:49 Dose: 2.5 mg Buspirone HCl (Buspar) 10 mg PO BID [facility] Last Admin: 06/28/17 09:27 Dose: 10 mg Enoxaparin Sodium (Lovenox) 40 mg SQ BID [facility] Last Admin: 06/28/17 09:27 Dose: 40 mg Vancomycin HCl 750 mg/ Sodium (Chloride) 250 mls @ 250 mls/hr IV Q12H [facility] Last Infusion: 06/28/17 10:48 Dose: Infused Senna (Senokot) 2 tab PO HSP PRN PRN Reason: Constipation Vancomycin HCl (Vancomycin Per Pharmacy) 1 order IV UD [facility] Warfarin Sodium (Coumadin Per Pharmacy) 1 order PO DAILY@1400 [facility] Last Admin: 06/27/17 17:45 Dose: Not Given Warfarin Sodium (Coumadin) 5 mg PO ONCE@1400 ONE Stop: 06/28/17 14:01 Medical - PN: A/P - Time Spent With Patient Total time spent is greater than 50% in coordination of care (as documented) at patient's floor/unit and/or counseling patient: - Narrative A/P Narrative: A/P Acute hypoxic resp failure: Resolved due to PE vs COPD exacerbation due to use of methamphetamine. Presently off oxygen DVT/ PE: Due to prolonged immobility after use of methamphetamine, on lovenox and coumadin. Discussed at length the need to be compliant as well as need to quit substance abuse, offered help to deal with her substance issue. Anxiety/ Panic attacks: Started on buspar, continue same, dose increased, prn ativan. Gram positive Bactermia: Noted in one bottle, given that she has h/o substance abuse, and has low grade temp start on IV vancomycin, repeat cultres and monitor. Check CXR again, Check UA, consider Echo if blood culture is not a contaminant and no other source noted. COPD: scheduled duonebs, prn albuterol, no wheezing, but it seems that he meth use flares up her copd. monitor DVT on lovenox Full code Medical - PN: Qual - VTE Deep Vein Thrombosis/Pulmonary Embolism Present on Admission: Yes
--- NOTE | 2017-06-28 13:04 | XRay Report ---
CLINICAL INFORMATION: Fever COMPARISON: None. FINDINGS: Heart size, mediastinum and pulmonary vessels are normal. Moderate COPD changes are similar to 06/09/[address] Lungs are clear. No effusions. Bones soft tissues are normal IMPRESSION: Stable COPD changes Interpreted and Authenticated by: Reggie Calvillo 06/28/17
[2017-06-28] MEDS ORDERED: WARFARIN 5 MG TABLET PO ONE (14:00)
[2017-06-28 14:20] LABS: Appearance,Urine CLEAR; Bacteria,Urine 0 /hpf (0); Bilirubin,Urine NEG (NEG); Color,Urine YELLOW; Glucose,Urine (UA) NEGATIVE (NEG); Leukocyte Esterase,Urine NEG /uL (NEG); Nitrate,Urine NEG (NEG); Protein,Urine NEG (NEG); Specific Gravity,Urine 1.011 (1.000-1.035); Urine Blood NEG mg/dL (<0.03); Urine RBC 0 /hpf (0-1); Urine Squamous Epithelial Cell < 1 /hpf (0-4); Urine WBC 1 /hpf (0-4); Urobilinogen,Urine NEG (NEG)
[2017-06-29] MEDS: IPRATROPIUM/ALBUTEROL 3 ML AMPUL.NEB NEB SCH ×3 (02:15→13:32)
[2017-06-29 05:57] LABS: Basophils # (Auto) 0 K/mcL (0.0-0.3); Basophils % (Auto) 0.3 % (0.0-2.0); Eosinophils # (Auto) 0.3 K/mcL (0.0-0.7); Eosinophils % (Auto) 4.2 % (0.0-7.0); Lymphocytes # (Auto) 1.8 K/mcL (1.5-4.8); Lymphocytes % (Auto) 28.7 % (15.5-49.0); Mean Corpuscular HGB Conc 32.7 g/dL (31.0-36.0); Mean Corpuscular Hemoglobin 30.1 pg (26.0-34.0); Monocytes # (Auto) 0.7 K/mcL (0.1-0.9); Monocytes % (Auto) 11.8 % (1.0-12.0); Platelet Count 299 K/mcL (140-440); RBC 4.04 M/mcL (4.00-5.20); Red Cell Distribution Width 16.2 % (11.5-14.5)
[2017-06-29 06:12] LABS: Blood Urea Nitrogen 22 mg/dl (6-20)
[2017-06-29] MEDS: busPIRone 5 MG TABLET PO SCH (09:58)
[2017-06-29] MEDS: VANCOMYCIN 750 MG in 0.9 % SODIUM CHLORIDE 250 ML IV SCH (10:00)
[2017-06-29] MEDS: ENOXAPARIN 40 MG/0.4 ML SYRINGE SQ SCH (10:00)
[2017-06-29] MEDS ORDERED: ENOXAPARIN 40 MG/0.4 ML SYRINGE SQ ONE (10:07)
--- NOTE | 2017-06-29 11:09 | Discharge Summary ---
Medical - DS: Prov Patient information: Note initiated : 06/29/17 at 11:06 am Service Date, if different from initiated Date: [] Patient: Shelly Marie 56 y/o F admitted on 06/26/17 for SOB, Anxiety/Dyspnea, Pulmonary Embolism, DVT. Chief Complaint: [] Date of admission: 06/26/17 22:22 Discharge date: 06/29/17 Discharging clinician: Bro Lyons Medical - DS: Meds - Discharge Medications Prescriptions: Albuterol Sulfate [Proair Hfa] 2 puff IH Q4-6HP PRN #1 PRN Reason: Bronchospasm Apixaban [Eliquis] 5 mg PO BID #60 tablet busPIRone [Buspar] 10 mg PO BID #60 tablet Fluticasone/Salmeterol [Advair 100-50 Diskus] 1 puff INH BID #1 inhaler Active and Home Medications: Home Medications Albuterol Sulfate 1.25 mg IH Q4 PRN 06/10/17 [History Confirmed 06/10/17 Last Taken Unknown] Albuterol Sulfate [Proair Hfa] 2 puff IH Q4-6HP PRN 06/10/17 [History Confirmed 06/10/17 Last Taken Unknown] Citalopram [Celexa] 10 mg PO DAILY 06/10/17 [History Confirmed 06/10/17 Last Taken Unknown] Fluticasone/Salmeterol [Advair 100-50 Diskus] 1 puff INH BID 06/10/17 [History Confirmed 06/10/17 Last Taken Unknown] Nicotine [Nicotine Patch] 21 mg TD DAILY 06/10/17 [History Confirmed 06/10/17 Last Taken Unknown] Omeprazole [Prilosec] 20 mg PO DAILY 06/10/17 [History Confirmed 06/10/17 Last Taken Unknown] risperiDONE [Risperidone Odt] 1 mg PO QAM 06/10/17 [History Confirmed 06/10/17 Last Taken Unknown] traMADol [Ultram] 50 mg PO TIDP PRN 06/10/17 [History Confirmed 06/10/17 Last Taken Unknown] Enoxaparin [Lovenox] 50 mg SQ BID #10 06/13/17 [Rx Last Taken Unknown] Warfarin [Coumadin] 5 mg PO DAILY@1400 #30 tablet 06/13/17 [Rx Last Taken Unknown] Medical - DS: Hosp Hospital course: Mr. Marie is a 56 year old Female with h/p COPD, DVT and PE< non compliant with meds, h/o chr methamphetamine use, presented to the ER for shortness of breath The patient was recently discharged from the hospital where she was admitted for DVT and Acute PE, she was discharged on lovenox and warfarin and a follow up with a new PCP. The patient did not take her coumadin as prescribed and continued to use methamphetamine after discharge home. She presented to the ER with shortness of breath and hypoxia and was admitted to the hospital with acute hypoxic respiratory failure Acute hypoxic resp failure: Treated with duonebs adn anticoagulation, patient responded to treatment very well, she is back to room air, she likely had exacerbation of copd due to inhalation of meth, as well as possible new clot in the lung due to her non compliance. Given that treatment would not change, no repeat CTPA was done this visit. DVT/PE: Provoked DVT/PE due to poor ambulation needs atleast 6 months of anticoagulation. I have stopped her lovenox and coumadin and started her on eliquis 5mg bid on discharge. Explained in detail again the need for anticoagulation and need for compliance, Patient verbalized understanding. Will also have social service as well as home nursing to evaluate patient at home to check on compliance. Will also set up PT and OT services. Need for follow up with PCP reinforced. Major risks benefits of the new medication discussed, all questions answered. Anxiety; chr issue, on citalopram at home, started on buspar 10mg bid here. She will need to follow up with [facility] for further management of her mental health issues. Patient advised to call and make appointment. The rest of the hospital stay was uneventful, she had a low grade temp, but ua was neg, cxr neg, no white count, her blood cx was positive for one bottle of gram positive coag neg staph,(deemed as contaminant). The patient repeat cultures were negative. The biggest issue the patient has is chr meth use and non compliance with her medications. She has been through extensive rehab recently and has failed same. Its likely that she will be back in the hospital relatively soon if she is remains non compliant with her medications. Discharge diagnosis: hypoxic resp failure, copd, PE - Time Spent with Patient Total time spent providing and/or coordinating discharge services: Greater than 30 minutes Medical - DS: Exam - Constitutional Vitals: Vital Signs Temp Pulse Pulse Resp BP BP Pulse Ox 06/29/17 08:12 98.4 F 80 18 108/70 92 06/29/17 07:13 75 20 94 06/29/17 04:00 98.3 F 75 16 116/64 94 06/29/17 00:00 98.5 F 91 H 18 104/57 95 06/28/17 20:00 98.8 F 89 20 98/68 95 06/28/17 19:08 87 22 06/28/17 16:00 98.4 F 93 H 18 85/65 95 06/28/17 13:37 95 06/28/17 13:36 90 24 H 06/28/17 12:00 100.6 F H 90 16 109/64 95 Intake and Output 06/28/17 06/29/17 06/29/17 21:59 05:59 13:59 Intake Total 810 / 810 550 / 550 Balance 810 / 810 550 / 550 Intake: IV 250 / 250 Vancomycin 750 mg In 250 / 250 Sodium Chloride 0.9% 250 ml @ 250 mls/hr IV Q12H [facility] Rx#:[id number] Oral 810 / 810 300 / 300 Other: Meal Dinner Percent of Meal Consumed 100% Feeding Ability Assist with Tray Set Up # Voids 1 1 Weight 105 lb Additional comments: Constitutional; Afebrile, cooperative, alert, not in distress. Eyes- No icterus, , No periorbital swelling Ears- Ext ear normal, hearing normal to conversation. Neck- Midline trachea, supple Respiratory system: Air Entry equal on both sides, No crackles or wheezing, no rhonchi. CVS- Rate rhythm regular, S1,S2 heard, no gallop, no rub. Abdomen- Soft nontender abdomen, no organomegaly, no tenderness, no guarding or rigidity, IP COUNSEL- AOOx3, moving all extremities, no gross focal deficit noted. Medical - DS: Data Labs on day of discharge: Labs from last 24 hours 06/29/17 06/29/17 06/29/17 07:57 03:52 03:51 WBC RBC Hgb Hct MCV MCH MCHC RDW Plt Count MPV Gran % Lymph % (Auto) Fountain % (Auto) Eos % (Auto) Baso % (Auto) Gran # Lymph # (Auto) Fountain # (Auto) Eos # (Auto) Baso # (Auto) PT 19.8 H INR 1.6 H Sodium Potassium Chloride Carbon Dioxide Anion Gap BUN Creatinine GFR Calculation Glucose Calcium Procalcitonin < 0.05 Urine Color Urine Appearance Urine pH Ur Specific Woodruff Urine Protein Urine Glucose (UA) Urine Ketones Urine Occult Blood Urine Nitrate Urine Bilirubin Urine Urobilinogen Ur Leukocyte Esterase Urine RBC Urine WBC Ur Squamous Epith Cells Urine Bacteria Ur Culture Indicated? Vancomycin Trough 16.1 H 06/29/17 06/29/17 06/28/17 03:51 03:51 13:41 WBC 6.1 RBC 4.04 Hgb 12.2 Hct 37.2 MCV 92.0 MCH 30.1 MCHC 32.7 RDW 16.2 H Plt Count 299 MPV 8.8 Gran % 55.0 Lymph % (Auto) 28.7 Fountain % (Auto) 11.8 Eos % (Auto) 4.2 Baso % (Auto) 0.3 Gran # 3.4 Lymph # (Auto) 1.8 Fountain # (Auto) 0.7 Eos # (Auto) 0.3 Baso # (Auto) 0 PT INR Sodium 140 Potassium 4.1 Chloride 102 Carbon Dioxide 25 Anion Gap 13.0 BUN 22 H Creatinine 0.7 GFR Calculation 96 Glucose 83 Calcium 8.2 L Procalcitonin Urine Color Yellow Urine Appearance Clear Urine pH 7.0 Ur Specific Woodruff 1.011 Urine Protein Neg Urine Glucose (UA) Negative Urine Ketones Neg Urine Occult Blood Neg Urine Nitrate Neg Urine Bilirubin Neg Urine Urobilinogen Neg Ur Leukocyte Esterase Neg Urine RBC 0 Urine WBC 1 Ur Squamous Epith Cells < 1 Urine Bacteria 0 Ur Culture Indicated? No Vancomycin Trough Preliminary micro results at discharge 06/28/17 13:41 Urine Culture - Preliminary Urine - Clean Void Mid-Stream 06/27/17 21:05 Blood Culture - Preliminary Blood 06/27/17 21:00 Blood Culture - Preliminary Blood Medical - DS: A/P - Patient/Caregiver Discharge Instructions Activity: increase activity as tolerated Diet: Regular Diet Additional Instructions: take your medications as prescribed You have been started on eliquis which is a blood thinner for treatment of clot in the leg and clot in the legs. You need to be on this medication for 6 months. Your primary care doctor will decide when it would be safe for you to stop the medications. You are at a higher risk of bleeding due to this medication. If you notice blood in stools, or urine, please stop the medication and go to the ER. Go to the ER if any fever, sob or any new concern. Please follow up with Your PCP in 7 -10 days Please call and make a follow up appointment with [facility] for management of mental health issues. Prescriptions: Albuterol Sulfate [Proair Hfa] 2 puff IH Q4-6HP PRN #1 PRN Reason: Bronchospasm Apixaban [Eliquis] 5 mg PO BID #60 tablet busPIRone [Buspar] 10 mg PO BID #60 tablet Fluticasone/Salmeterol [Advair 100-50 Diskus] 1 puff INH BID #1 inhaler - Follow up Plan Follow up with: Gretel Huang DO [Physician] - 07/03/17 2:15 pm (Please arrive at 2:00) Disposition: Home Health Service Prognosis: Fair Rehab Potential: Fair I certify that the patient requires SNF services: No Overall status at discharge: patient is progressing back to baseline Medical - DS: Qual - VTE Deep Vein Thrombosis/Pulmonary Embolism Present on Admission: Yes
[2017-06-29] MEDS ORDERED: WARFARIN 5 MG TABLET PO SCH (14:00)
[2017-07-02 10:03] LABS: Hepatitis A Antibody Total NON-REACTIVE (NON-REACTIVE); Hepatitis B SAB Quant <5 mIU/mL (> OR = 10); Hepatitis B Surface Antigen NON-REACTIVE (NON-REACTIVE); Hepatitis C Virus Antibody REACTIVE (NON-REACTIVE)
== END 2017-06-29 14:00 | disposition home health service (06) | DRG 189 ==
LOC: ED 16:00 → ICU 22:22
PROVIDERS: ADMIT Internal Medicine; ATTEND Internal Medicine

== ENCOUNTER 2017-10-14 09:49 | Inpatient (IN) ==
[2017-10-14] MEDS ORDERED: 0.9 % SODIUM CHLORIDE 1,000 ML IV ONE (10:00)
[2017-10-14] MEDS ORDERED: IPRATROPIUM/ALBUTEROL 3 ML AMPUL.NEB NEB ONE ×6 (10:12→15:59)
[2017-10-14] MEDS ORDERED: LORazepam 2 MG/ML VIAL IV ONE ×2 (10:16→15:59)
--- NOTE | 2017-10-14 10:23 | Emergency Department Note ---
SOB HPI - General Source: patient Mode of arrival: ambulatory Limitations: no limitations <Shawn Romero - Last Filed: 10/14/17 10:18> <Abundio Wilkes - Last Filed: 10/14/17 12:09> - General Chief Complaint: Shortness of Breath/Dyspnea Stated Complaint: Shortness of breath Time Seen by Provider: 10/14/17 09:55 - History of Present Illness 57 year old male comes into the ER for shortness of breath and difficulty breathing. At this time denies any chest pain. Denies, fevers, chills, nausea, vomiting, diarrhea, constipation, cough. Reports diffuse abdominal pain radiating to her right flank. Describes pain as ranging from dull,achy, diffuse to sharp. Its constant. No resolving factors. Pertinent hx includes chronic long erm hx of COPD and anxiety. States hasn't taken her medication for anxiety the last week. States hasn't had her breathing treatments for the last week. Reports chronic correction hx use of meth. Had a line of meth yesterday. ( Shawn Romero) - Related Data Home Medications Medication Instructions Recorded Confirmed Albuterol Sulfate 1.25 mg IH Q4 PRN 06/10/17 06/10/17 Citalopram [Celexa] 10 mg PO DAILY 06/10/17 06/10/17 Nicotine [Nicotine Patch] 21 mg TD DAILY 06/10/17 06/10/17 Omeprazole [Prilosec] 20 mg PO DAILY 06/10/17 06/10/17 risperiDONE [Risperidone Odt] 1 mg PO QAM 06/10/17 06/10/17 traMADol [Ultram] 50 mg PO TIDP PRN 06/10/17 06/10/17 Previous Rx's Medication Instructions Recorded Albuterol Sulfate [Proair Hfa] 2 puff IH Q4-6HP PRN #1 06/29/17 Apixaban [Eliquis] 5 mg PO BID #60 tablet 06/29/17 Fluticasone/Salmeterol [Advair 1 puff INH BID #1 inhaler 06/29/17 100-50 Diskus] busPIRone [Buspar] 10 mg PO BID #60 tablet 06/29/17 Allergies Allergy/AdvReac Type Severity Reaction Status Date / Time No Known Drug Allergies Allergy Verified 06/06/17 13:42 Review of Systems Eyes: Denies: eye pain, eye discharge, vision change ENT ED: Denies: ear pain, throat pain, dental pain, hearing loss, congestion, dysphagia Cardiovascular: Reports: dyspnea on exertion (reports dyspnea worsening on exertion within the last wek). Denies: chest pain Respiratory: Reports: shortness of breath. Denies: cough, hemoptysis, phlegm Gastrointestinal: Reports: abdominal pain. Denies: nausea, vomiting, diarrhea, constipation, hematochezia, melena Genitourinary: Denies: urgency, dysuria, frequency, hematuria, discharge Musculoskeletal: Reports: back pain Integumentary: Denies: rash, lesions, change in color Neurological: Denies: headache <Shawn Romero - Last Filed: 10/14/17 10:18> Past Medical History - Past Medical History Medical history: Reports: COPD, other (PE, DVT) Psychiatric history: Reports: anxiety Surgical history ED: Reports: non-contributory - Social History smoking status: Current every day smoker Alcohol use: Reports: None Drug use: Reports: none <Shawn Romero - Last Filed: 10/14/17 10:18> <Abundio Wilkes - Last Filed: 10/14/17 12:09> - Past Medical History PMFSH Narrative: Medical History Acute exacerbation of chronic obstructive airways disease (Acute) Deep vein thrombosis of lower extremity (Acute) Tobacco abuse (Acute) Acute anxiety (Acute) Dyspnea (Acute) Anxiety (Acute) Pulmonary embolism (Acute) DVT (deep venous thrombosis) (Acute) Hyperventilation (Acute) (Shawn Romero) Physical Exam Limitations: no limitations Head: atraumatic, normocephalic Eye: Present: PERRL, EOMI ENT: normal exam, normal oropharynx Neck: Present: normal inspection Chest: Present: normal inspection, symmetric chest wall rise, other (tachypneic) Respiratory: Present: normal lung sounds bilaterally. Absent: respiratory distress Cardiovascular: Present: regular rate, tachycardia Abdominal: Present: tenderness, normal bowel sounds. Absent: distention, guarding, rebound, rigidity <Shawn Romero - Last Filed: 10/14/17 10:18> Psychiatric: Present: anxious Skin: Present: warm, dry, intact <Abundio Wilkes - Last Filed: 10/14/17 12:09> Vital Signs Temperature 98.9 F 10/14/17 09:50 Pulse Rate 106 H 10/14/17 09:50 Respiratory Rate 34 H 10/14/17 09:50 Blood Pressure 169/88 10/14/17 09:50 Pulse Oximetry (%) 84 L 10/14/17 09:50 Temperature 98.9 F 10/14/17 09:50 Pulse Rate 93 H 10/14/17 12:01 Respiratory Rate 16 10/14/17 12:01 Blood Pressure 79/70 10/14/17 12:01 Pulse Oximetry (%) 100 10/14/17 12:01 Shortness of Breath/Dyspnea - Lab Data Result diagrams: 10/14/17 10:04 10/14/17 10:04 <Shawn Romero - Last Filed: 10/14/17 10:18> - Lab Data Lab results reviewed: Yes I reviewed the patient's lab results. Result diagrams: 10/14/17 10:04 10/14/17 10:04 - Radiology Data Radiology results reviewed: Yes I reviewed the patient's radiology results. <Abundio Wilkes - Last Filed: 10/14/17 12:09> - [facility] Narrative Medical decision making narrative: Lab work was normal and chest x-ray is consistent with COPD. She was given a DuoNeb treatment and 1 mg of Ativan and calmed down with sleep. (Abundio Wilkes) - Lab Data Lab Results 10/14/17 10/14/17 10/14/17 Range/Units 10:04 10:04 10:04 WBC 10.6 (4.5-11.0) K/mcL RBC 4.58 (4.00-5.20) M/mcL Hgb 13.7 (12.0-15.0) g/dL Hct 41.4 (36.0-48.0) % MCV 90.4 (80.0-100.0) fL MCH 29.9 (26.0-34.0) pg MCHC 33.1 (31.0-36.0) g/dL RDW 14.3 (11.5-14.5) % Plt Count 359 (140-440) K/mcL MPV 8.4 (7.4-10.4) fL Total Counted 100 Seg Neutrophils % 58 (38-78) % Band Neutrophils % Not Reportable Lymphocytes % 29 (15-49) % Monocytes % (Manual) 9 (1-12) % Eosinophils % (Manual) 4 (0-7) % Platelet Estimate Normal (NORMAL) RBC Morphology Norm (NORMAL) VBG Lactic Acid 1.0 (0.5-2.2) mmol/L Sodium 141 (133-145) mmol/L Potassium 4.3 (3.3-5.1) mmol/L Chloride 102 (96-108) mmol/L Carbon Dioxide 27 (22-30) mmol/L Anion Gap 12.0 (8-16) BUN 18 (6-20) mg/dl Creatinine 0.9 (0.6-1.1) mg/dl GFR Calculation 70 Glucose 96 (70-105) mg/dL Calcium 9.4 (8.6-10.4) mg/dl Total Bilirubin 0.5 (0.0-1.0) mg/dL AST 19 (0-37) U/l ALT 12 (0-40) U/l Alkaline Phosphatase 65 (39-117) U/L Total Protein 6.8 (5.9-8.4) gm/dL Albumin 4.3 (3.2-5.2) gm/dL Globulin 2.5 (2.2-3.7) gm/dL Albumin/Globulin Ratio 1.7 (1.0-2.3) Ethyl Alcohol (<0.010) gm/dl 10/14/ Range/Units 10:20 WBC (4.5-11.0) K/mcL RBC (4.00-5.20) M/mcL Hgb (12.0-15.0) g/dL Hct (36.0-48.0) % MCV (80.0-100.0) fL MCH (26.0-34.0) pg MCHC (31.0-36.0) g/dL RDW (11.5-14.5) % Plt Count (140-440) K/mcL MPV (7.4-10.4) fL Total Counted Seg Neutrophils % (38-78) % Band Neutrophils % Lymphocytes % (15-49) % Monocytes % (Manual) (1-12) % Eosinophils % (Manual) (0-7) % Platelet Estimate (NORMAL) RBC Morphology (NORMAL) VBG Lactic Acid (0.5-2.2) mmol/L Sodium (133-145) mmol/L Potassium (3.3-5.1) mmol/L Chloride (96-108) mmol/L Carbon Dioxide (22-30) mmol/L Anion Gap (8-16) BUN (6-20) mg/dl Creatinine (0.6-1.1) mg/dl GFR Calculation Glucose (70-105) mg/dL Calcium (8.6-10.4) mg/dl Total Bilirubin (0.0-1.0) mg/dL AST (0-37) U/l ALT (0-40) U/l Alkaline Phosphatase (39-117) U/L Total Protein (5.9-8.4) gm/dL Albumin (3.2-5.2) gm/dL Globulin (2.2-3.7) gm/dL Albumin/Globulin Ratio (1.0-2.3) Ethyl Alcohol < 0.010 (<0.010) gm/dl Disposition Pt seen by CIRCULAR KNIFE CUTTER MACHINE/PA only: No <Shawn Romero - Last Filed: 10/14/17 10:18> Pt seen by CIRCULAR KNIFE CUTTER MACHINE/PA only: No Time of Disposition: 12:09 <Abundio Wilkes - Last Filed: 10/14/17 12:09> Clinical Impression: Acute exacerbation of chronic obstructive airways disease, Acute anxiety Summary: 1.) Shortness of breath A.) Order EKG B.) Order cardiac labs C.) Order CXR D.) Order IVF E.) Order benzodiazipine D.) Re-evaluate. (Shawn Romero) Disposition: Home, Self-Care Condition: Good Instructions: Chronic Obstructive Pulmonary Disease (ED)
--- NOTE | 2017-10-14 10:36 | XRay Report ---
INDICATION: COPD. Drug overdose TECHNIQUE: PA and lateral upright chest x-ray COMPARISON: 06/28/2017, 06/26/2017, 06/12/2017 FINDINGS:Bilateral hyperexpansion consistent with COPD. No acute or focal pulmonary parenchymal infiltrate. No parenchymal mass. Heart size and vascularity are normal. No pulmonary edema. No pulmonary congestion. No new abnormalities. No interval change IMPRESSION: 1. COPD 2. No acute abnormality. No interval change Interpreted and Authenticated by: Reggie Maldonado 10/14/17
[2017-10-14 10:56] LABS: Mean Cell Volume 90.4 fL (80.0-100.0); Mean Corpuscular HGB Conc 33.1 g/dL (31.0-36.0); Mean Corpuscular Hemoglobin 29.9 pg (26.0-34.0); Platelet Count 359 K/mcL (140-440); RBC 4.58 M/mcL (4.00-5.20); Red Cell Distribution Width 14.3 % (11.5-14.5)
[2017-10-14 11:10] LABS: ALT/SGPT 12 U/l (0-40); Albumin 4.3 gm/dL (3.2-5.2); Albumin/Globulin Ratio 1.7 (1.0-2.3); Alkaline Phosphatase 65 U/L (39-117); Blood Urea Nitrogen 18 mg/dl (6-20)
[2017-10-14 11:28] LABS: Eosinophils % (Manual) 4 % (0-7); Lymphocytes % 29 % (15-49); Monocytes % (Manual) 9 % (1-12); Platelet Estimate NORMAL (NORMAL); RBC Morphology NORM (NORMAL); Segmented Neutrophils % 58 % (38-78)
[2017-10-14] MEDS ORDERED: predniSONE 20 MG TABLET PO ONE (12:52)
[2017-10-14] MEDS ORDERED: AZITHROMYCIN 500 MG in DEXTROSE 5% IN WATER 250 ML IV ONE (15:59)
[2017-10-14 16:33] LABS: Appearance,Urine CLEAR; Bilirubin,Urine NEG (NEG); Color,Urine YELLOW; Glucose,Urine (UA) NEGATIVE (NEG); Leukocyte Esterase,Urine NEG /uL (NEG); Nitrate,Urine NEG (NEG); Protein,Urine NEG (NEG); Specific Gravity,Urine 1.019 (1.000-1.035); Urine Blood NEG mg/dL (<0.03); Urobilinogen,Urine NEG (NEG)
[2017-10-14 16:37] LABS: Amphetamine Screen,Urine SUSPECT POSITIVE (NONDETECTED); Benzodiazepines Screen,Urine NONE DETECTED (NONDETECTED); Cocaine Screen,Urine NONE DETECTED (NONDETECTED); Opiate Screen,Urine NONE DETECTED (NONDETECTED)
[2017-10-14] MEDS ORDERED: LORazepam 1 MG TABLET PO PRN (20:36)
[2017-10-14] MEDS ORDERED: LORazepam 2 MG/ML VIAL IV PRN (20:36)
[2017-10-14] MEDS ORDERED: ONDANSETRON 4 MG/2 ML VIAL IV PRN (20:36)
[2017-10-14] MEDS ORDERED: ACETAMINOPHEN 325 MG TABLET PO PRN (20:36)
[2017-10-14] MEDS ORDERED: ALBUTEROL SULFATE 2.5 MG/3 ML NEBULIZER NEB PRN (20:36)
[2017-10-14] MEDS ORDERED: ENOXAPARIN 100 MG/ML SYRINGE SQ SCH (21:00)
--- NOTE | 2017-10-14 21:25 | Cat Scan Report ---
CLINICAL INFORMATION: Elevated d-dimer. Dyspnea. COMPARISON: Chest x-rays dated 10/14/2017 and 06/28/2017 TECHNIQUE: Axial images obtained through the chest. 80 mL intravenous contrast was administered, and scanning was performed during pulmonary arterial phase. Sagittally and coronally reformatted images were obtained. MIP reformatted images. FINDINGS: Main pulmonary artery, right pulmonary artery, left pulmonary artery are negative. No intraluminal filling defects. No lobar, segmental, or subsegmental abnormalities. Negative examination for pulmonary embolism. Severe centrilobular emphysema. No focal pulmonary parenchymal infiltrate or mass. No hilar or mediastinal adenopathy. No axillary adenopathy. Upper abdomen is negative Thoracic spine, ribs, sternum are negative. IMPRESSION: Negative pulmonary CTA Interpreted and Authenticated by: Reggie Maldonado 10/14/17
[2017-10-14] MEDS: 0.9 % SODIUM CHLORIDE 1,000 ML IV SCH (22:17)
[2017-10-14] MEDS: ENOXAPARIN 60 MG/0.6 ML SYRINGE SQ SCH (22:17)
--- NOTE | 2017-10-14 22:44 | Internal Med History&Physical ---
Medical - H&P: [facility] Patient information: Note initiated : 10/14/17 at 10:44 pm Service Date, if different from initiated Date: [] Patient: Shelly Marie a 57 y/o F admitted on 10/14/17 for Shortness of breath. Chief Complaint: dyspnea History of present illness: Ms. Marie is a 57 year old F with a history of methamphetamine abuse, DVT with pulmonary embolism and medical noncompliance, underlying COPD, ongoing tobacco abuse who presents to the emergency department complaining of dyspnea. History is obtained in speaking with the patient, though it somewhat limited due to her somnolence. History is also obtained in reviewing old records which are obtained and summarized as below. Patient states that she is been short of breath for 18 years. This seems to have worsened over the last week. Her chief complaint is being tired as well as short of breath. She has a history of methamphetamine abuse, this summer had just gotten out of rehabilitation, had relapse prior to admission for leg swelling where she was diagnosed with DVT and a small PE. She was readmitted later in the summer, had resumed using methamphetamine. She states that she did use methamphetamine, snorted one line yesterday. She felt this "calmed down " her breathing. The patient is unable to give much more history, she drowse his off, has to be shaken constantly to wake back up. At one point she does ask to have someone "check my insides", but cannot elaborate. In the emergency department, he had mild hypoxia arrest, was treated with DuoNeb 's, subsequently received steroids. She developed periods of anxiety with associated desaturations into the 70s while on 1-2 L nasal cannula. Subsequent ABG showed evidence of acute hypoxic and hypercapnic respiratory failure. In spite of several rounds of bronchodilators and steroids in the ED, she still had significantly impaired air movement and respiratory failure and is being admitted for further evaluation. The patient is only able to tell me that she uses an inhaler of some type, mumbles that she takes no other medications. The medication list below is unverified. ROS unobtainable: due to mental status Medical - H&P: PM Medical history: Acute exacerbation of chronic obstructive airways disease (Acute) Deep vein thrombosis of lower extremity (Acute) Tobacco abuse (Acute) Methamphetamine abuse Medical noncompliance Acute anxiety (Acute) Dyspnea (Acute) Anxiety (Acute) Pulmonary embolism (Acute) Surgical history: No known surgical history, but patient unable to give history. Pertinent family history: Patient briefly answers there is a history of alcoholism in the family. Social history: The patient's recently used methamphetamine. She smokes one pack per day, has about 5 drinks a day, last drink couple days ago. She cannot provide any further details. Medical - H&P: Meds Home Medications Medication Instructions Recorded Confirmed Type Albuterol Sulfate 1.25 mg IH Q4 PRN 06/10/17 06/10/17 History Citalopram [Celexa] 10 mg PO DAILY 06/10/17 06/10/17 History Nicotine [Nicotine Patch] 21 mg TD DAILY 06/10/17 06/10/17 History Omeprazole [Prilosec] 20 mg PO DAILY 06/10/17 06/10/17 History risperiDONE [Risperidone Odt] 1 mg PO QAM 06/10/17 06/10/17 History traMADol [Ultram] 50 mg PO TIDP PRN 06/10/17 06/10/17 History Albuterol Sulfate [Proair Hfa] 2 puff IH Q4-6HP PRN #1 06/29/17 Rx Apixaban [Eliquis] 5 mg PO BID #60 tablet 06/29/17 Rx Fluticasone/Salmeterol [Advair 1 puff INH BID #1 inhaler 06/29/17 Rx 100-50 Diskus] busPIRone [Buspar] 10 mg PO BID #60 tablet 06/29/17 Rx predniSONE [Prednisone] 20 mg PO DAILY #23 tab 10/14/17 Rx Allergies Allergy/AdvReac Type Severity Reaction Status Date / Time No Known Drug Allergies Allergy Verified 06/06/17 13:42 Medical - H&P: Exam - Constitutional Vitals: Temp Pulse Resp BP Pulse Ox 98.9 F 84 27 H 85/58 94 10/14/17 20:09 10/14/17 20:20 10/14/17 20:09 10/14/17 20:09 10/14/17 20:20 Exam: General: Drowsy, wakes groggily, mumbles some answers. HEENT: Normocephalic. Pupils are 2 mm and equally round and reactive to light. Sclera are anicteric. No conjunctival injection. Oropharynx is with moist mucous membranes, no lip or gum lesions. Tongue is midline, repetitive tongue protrusion movements during the interview. Neck: Supple, no meningismus. No thyromegaly. Chest: Significantly decreased aeration with marked decreased breath sounds in all lung nelson posteriorly. Respiratory effort mildly labored. Cardiovascular: Regular rate and rhythm without murmur gallop or rub. Carotid pulses are 2+ without bruit. There is no lower extremity edema. Abdomen: Soft, nontender, though subsequent exam the patient does complain of abdominal pain, but again abdomen is nontender to palpation. There is no guarding or rebound. Decreased, but active bowel sounds. No hepatosplenomegaly. Lymphatic: No cervical or supraclavicular lymphadenopathy. Skin: Warm, dry. Erythema on the elbows, bilaterally. Musculoskeletal: No joint erythema or tenderness. Normal range of motion in the upper and lower extremities. Digits without cyanosis or clubbing. Neuro: Drowsy and groggy, no she's at the hospital. Agreeable to stay in the hospital. Cranial nerves II through XII grossly intact, as best can be tested. Sensation appears intact to light touch. Psychiatric: Cannot test affect and mood. Medical - H&P: Reslt - Labs CBC & Chem 7: 10/14/17 10:04 10/14/17 10:04 Labs: Short CBC 10/14/17 Range/Units 10:04 WBC 10.6 (4.5-11.0) K/mcL Hgb 13.7 (12.0-15.0) g/dL Hct 41.4 (36.0-48.0) % Plt Count 359 (140-440) K/mcL BMP 10/14/17 10:04 Sodium 141 Potassium 4.3 Chloride 102 Carbon Dioxide 27 BUN 18 Creatinine 0.9 Glucose 96 Calcium 9.4 Liver Function 10/14/17 Range/Units 10:04 Total Bilirubin 0.5 (0.0-1.0) mg/dL AST 19 (0-37) U/l ALT 12 (0-40) U/l Alkaline Phosphatase 65 (39-117) U/L Albumin 4.3 (3.2-5.2) gm/dL Urine 10/14/17 Range/Units 15:42 Urine Color Yellow Urine Appearance Clear Urine pH 5.0 (5.0-9.0) Ur Specific [place] 1.019 (1.000-1.035) Urine Protein Neg (NEG) mg/dL Urine Glucose (UA) Negative (NEG) mg/dL - ABG Interpretation ABG results: - EKG Data -: EKG Reviewed by Myself EKG shows normal: sinus rhythm, QRS complexes, ST-T waves - Imaging and Cardiology CT scan - chest Status: image reviewed by me Additional comments: FINDINGS: Main pulmonary artery, right pulmonary artery, left pulmonary artery are negative. No intraluminal filling defects. No lobar, segmental, or subsegmental abnormalities. Negative examination for pulmonary embolism. Severe centrilobular emphysema. No focal pulmonary parenchymal infiltrate or mass. Chest x-ray Status: image reviewed by me Additional comments: COPD changes w/o infiltrate Medical - H&P: A/P (1) Acute respiratory failure with hypoxia and hypercapnia Current visit: Yes Status: Acute (2) Acute exacerbation of chronic obstructive airways disease Current visit: Yes Status: Acute (3) Metabolic encephalopathy Current visit: Yes Status: Acute (4) DVT (deep venous thrombosis) Current visit: Yes Status: Chronic (5) Methamphetamine abuse Current visit: Yes Status: Chronic (6) Tobacco abuse Current visit: Yes Status: Chronic - Narrative A/P Narrative: 57-year-old female with severe COPD on imaging, presents with dyspnea, appears to be worsening for a week, has acute exacerbation of COPD, acute hypoxic and hypercapnic respiratory failure, associated encephalopathy. Acute hypercapnic and hypoxic respiratory failure. Likely secondary to COPD exacerbation with CO2 retention. Patient has very poor aeration on exam. BiPAP therapy seems to have helped her somewhat. Plan: #1 inpatient hospitalization #2 BiPAP support #3 intravenous and inhaled corticosteroids #4 scheduled bronchodilators in the form of DuoNeb #5 when necessary albuterol Acute exacerbation of COPD. Unclear what the trigger is, past history obtainable as it's been ongoing for about a week. Plan: Aerosols and steroids as noted above, azithromycin for anti-inflammatory effect and COPD exacerbation. Encephalopathy, metabolic. Secondary to hypercapnia and respiratory failure. Plan: Supportive care, treat underlying cause. Venous thrombosis and pulmonary embolism. Diagnosed in May. Initially was noncompliant with warfarin, subsequently discharged on [place] was. Does not appear to be taking either at this time. Repeat chest CT without evidence of pulmonary embolism, so that is not contributing to her respiratory difficulties. Plan: Full dose anticoagulation until status of any residual DVT is determined. We'll use Lovenox. Methamphetamine abuse, most recent use yesterday. Plan: Supportive care. Alcohol use. Drinks up to 5 drinks a day, she appears to have said during interview, though this was unclear. Plan: Monitor for evidence of withdrawal, with CIWA Tobacco abuse. Patient not amenable to counseling at this time. Plan: Supportive care, nicotine patch if needed. CODE STATUS: The patient is unable to engage in discussion of CODE STATUS. Therefore she is full code by default.
[2017-10-15] MEDS: IPRATROPIUM/ALBUTEROL 3 ML AMPUL.NEB NEB SCH ×7 (00:22→22:59)
[2017-10-15 05:34] LABS: Mean Cell Volume 92.3 fL (80.0-100.0); Mean Corpuscular Hemoglobin 30.5 pg (26.0-34.0); Platelet Count 316 K/mcL (140-440); RBC 3.92 M/mcL (4.00-5.20)
[2017-10-15 05:45] LABS: Blood Urea Nitrogen 16 mg/dl (6-20)
[2017-10-15 06:00] LABS: Band Neutrophils % 1 % (0-10); Lymphocytes % 11 % (15-49); Monocytes % (Manual) 4 % (1-12); Platelet Estimate NORMAL (NORMAL); RBC Morphology NORMAL (NORMAL); Segmented Neutrophils % 84 % (38-78)
[2017-10-15] MEDS ORDERED: PANTOPRAZOLE 40 MG TABLET PO SCH (07:30)
[2017-10-15] MEDS ORDERED: methylPREDNISolone SOD SUCC 125 MG/2 ML VIAL IV SCH (09:00)
[2017-10-15] MEDS ORDERED: AZITHROMYCIN 250 MG TABLET PO SCH (09:00)
[2017-10-15] MEDS: ENOXAPARIN 60 MG/0.6 ML SYRINGE SQ SCH (09:10)
[2017-10-15] MEDS: 0.9 % SODIUM CHLORIDE 1,000 ML IV SCH ×2 (11:13→11:56)
--- NOTE | 2017-10-15 13:46 | Ultrasound Report ---
CLINICAL INFORMATION: Follow DVT COMPARISON: None. FINDINGS: The entire right deep venous system including the common femoral, superficial femoral, popliteal and paired trifurcation calf veins are easily compressible and show normal venous blood flow on color and spectral Doppler. No evidence of thrombus On the left side, there are small fragments of chronic echogenic subocclusive thrombus in the distal external iliac, common femoral and popliteal veins. IMPRESSION: Small segments of subocclusive chronic thrombus in the distal left external iliac, common femoral and popliteal veins. Right lower extremity venous system is unremarkable Interpreted and Authenticated by: Reggie Calvillo 10/15/17
--- NOTE | 2017-10-15 19:53 | Internal Med Progress Note ---
Medical - PN: Subj Patient information: Note initiated : 10/15/17 at 7:51 pm Service Date, if different from initiated Date: [] Patient: Shelly Marie 57 y/o F admitted on 10/14/17 for SOB/Hypercapnic and Hypoxic Respiratory Failure. Chief Complaint: follow up COPD and respiratory failure Interval history: October 14: Admitted after presenting to the ED with dyspnea. Have persistent desaturations. Found to have hypercapnic and hypoxic respiratory failure. Very poor aeration. Was on BiPAP for several hours following admission. October 15: Off of BiPAP, no longer requiring oxygen. Sleeping a lot, though was using methamphetamine approximately 48 hours ago. When awake, alert, able to communicate and maintaining train of thought and conversation. States she is extremely dyspneic with only a few steps. That's been going on for the last week, though have been progressive for a few weeks prior to that. Also complaining of her "insides" hurting and being "scraped". Specifically points to the right lower rib cage and abdomen area. - Constitutional Vitals: Vital Signs Temp Pulse Resp BP Pulse Ox 99.2 F H 83 20 81/58 96 10/15/17 16:00 10/15/17 19:30 10/15/17 19:30 10/15/17 16:00 10/15/17 19:23 Period Temp Pulse Resp BP Sys/Christian Pulse Ox Last 24 Hr 97.1 F-100.6 F 77-100 16-27 75-108/49-86 90-100 Intake and Output 10/15/17 10/15/17 10/15/17 05:59 13:59 21:59 Intake Total 1480 / 1480 250 / 250 Output Total 351 / 351 175 / 175 175 / 175 Balance -351 / -351 1305 / 1305 75 / 75 Weight 102 lb 12.8 oz Patient Weight 10/16/17 05:59 Weight 102 lb 12.8 oz Intake & Output: Intake & Output 10/15/17 10/15/17 10/15/17 05:59 13:59 21:59 Intake Total 1480 / 1480 250 / 250 Output Total 351 / 351 175 / 175 175 / 175 Balance -351 / -351 1305 / 1305 75 / 75 Weight 102 lb 12.8 oz Intake: IV 1000 / 1000 Sodium Chloride 0.9% 1,000 ml @ 1000 / 1000 75 mls/hr IV .[id number] [facility] Rx#: [id number] Oral 480 / 480 250 / 250 Output: Void Amount 350 / 350 175 / 175 175 / 175 # of times incontinent of urine Other: Meal Lunch Snack Percent of Meal Consumed 75% 100% Feeding Ability Independent # Voids 1 Exam: General: In bed, no acute distress, much more alert and communicative today. Chest: Still is significantly diminished breath sounds in all lung nelson posteriorly. No wheezes, no rales. Cardiovascular: Regular rate and rhythm, no peripheral edema Abdomen: Soft, mild intermittent tenderness of the right flank at the inferior margin of the rib cage between the mid and anterior axillary lines. No guarding or rebound. Normal bowel sounds. Neuro: Awake, alert, oriented to person and place and situation. Moves all extremities equally Medical - PN: Obj Da - Labs CBC & Chem 7: 10/15/17 03:55 10/15/17 03:55 Labs: Abnormal Lab Results 10/15/17 10/15/17 10/14/17 03:55 03:55 15:42 RBC 3.92 L Hgb 11.9 L Seg Neutrophils % 84 H Lymphocytes % 11 L Calcium 8.5 L Urine Ketones Ur Amphetamines Screen Suspect positive A 10/14/17 15:42 RBC Hgb Seg Neutrophils % Lymphocytes % Calcium Urine Ketones 5/tr A Ur Amphetamines Screen Meds: Medications Acetaminophen (Tylenol) 650 mg PO Q6HP PRN PRN Reason: PAIN/FEVER > 101 Last Admin: 10/15/17 12:23 Dose: 650 mg Albuterol Sulfate (Ventolin) 2.5 mg NEB Q2HP PRN PRN Reason: Dyspnea Albuterol/Ipratropium (Duoneb) 3 ml NEB Q4HRT [facility] Last Admin: 10/15/17 19:23 Dose: 3 ml Azithromycin (Zithromax) 250 mg PO DAILY [facility] Stop: 10/18/17 09:01 Last Admin: 10/15/17 09:10 Dose: 250 mg Buspirone HCl (Buspar) 5 mg PO BID [facility] Citalopram Hydrobromide (Celexa) 10 mg PO DAILY [facility] Sodium Chloride (Sodium Chloride 0.9%) 1,000 mls @ 75 mls/hr IV .[id number] [facility] Last Admin: 10/15/17 11:56 Dose: 75 mls/hr Lorazepam (Ativan) 0.5 mg IV Q2HP PRN PRN Reason: ANXIETY/SEDATION Last Admin: 10/14/17 21:06 Dose: 0.5 mg Lorazepam (Ativan) 1 mg PO Q4HP PRN PRN Reason: ANXIETY/SEDATION Methylprednisolone Sodium Succinate (Solu-Medrol) 80 mg IV Q12 [facility] Last Admin: 10/15/17 09:10 Dose: 80 mg Nicotine (Nicoderm) 21 mg TD DAILY [facility] Non-Formulary Medication (Risperidone [Risperidone Odt]) 1 mg PO QAM [facility] Ondansetron HCl (Zofran) 4 mg IV Q4HP PRN PRN Reason: Nausea And Vomiting Pantoprazole Sodium (Protonix) 40 mg PO QAMAC [facility] Last Admin: 10/15/17 07:50 Dose: 40 mg Fluticasone/Salmeterol (Advair 100-50 Diskus) 1 puff INH BID [facility] - Impressions BLE venous duplex IMPRESSION: Small segments of subocclusive chronic thrombus in the distal left external iliac, common femoral and popliteal veins. Right lower extremity venous system is unremarkable Medical - PN: A/P - Time Spent With Patient Total time spent is greater than 50% in coordination of care (as documented) at patient's floor/unit and/or counseling patient: (1) Acute respiratory failure with hypoxia and hypercapnia Status: Acute Current Visit: Yes (2) Acute exacerbation of chronic obstructive airways disease Status: Acute Current Visit: Yes (3) Metabolic encephalopathy Status: Acute Current Visit: Yes (4) DVT (deep venous thrombosis) Status: Chronic Current Visit: Yes (5) Methamphetamine abuse Status: Chronic Current Visit: Yes (6) Tobacco abuse Status: Chronic Current Visit: Yes - Narrative A/P Narrative: 57-year-old female with severe COPD on imaging, presents with dyspnea, appears to be worsening for a week, has acute exacerbation of COPD, acute hypoxic and hypercapnic respiratory failure, associated encephalopathy. Acute hypercapnic and hypoxic respiratory failure. No longer requiring supplemental oxygen, much more alert, suspect hypercarbia has resolved as well. Plan: Change to MedSurg, continue with treatment of COPD. Acute exacerbation of COPD. is significantly dyspneic with only a few steps. Has been getting worse for a few weeks, much worse in the last week she is able to confirm. Plan: Continue with intravenous steroids, scheduled DuoNeb, when necessary albuterol, azithromycin for anti-inflammatory effect and COPD exacerbation. Encephalopathy, metabolic. Secondary to hypercapnia and respiratory failure. Generally resolved Sunday. Plan: Monitor Venous thrombosis and pulmonary embolism. Diagnosed in May. Initially was noncompliant with warfarin, subsequently discharged on apixaban. Chest CT Sunday without evidence of pulmonary embolism, so that is not contributing to her respiratory difficulties. LE duplex with residual left DVT. Plan: Full dose anticoagulation, meter changes records clerk to apixaban. Methamphetamine abuse, most recent use Sunday. Plan: Supportive care. Alcohol use. Drinks up to 5 drinks a day, per her history at admission, though that was somewhat unclear. Plan: Monitor for evidence of withdrawal, with CIWA Tobacco abuse. Patient not amenable to counseling at this time. Plan: Supportive care, nicotine patch if needed.
[2017-10-15] MEDS ORDERED: LORazepam 2 MG/ML VIAL IV PRN (19:55)
[2017-10-15] MEDS ORDERED: ALBUTEROL SULFATE 2.5 MG/3 ML NEBULIZER NEB PRN (19:55)
[2017-10-15] MEDS ORDERED: ONDANSETRON 4 MG/2 ML VIAL IV PRN (19:55)
[2017-10-15] MEDS ORDERED: LORazepam 1 MG TABLET PO PRN (19:55)
[2017-10-15] MEDS: methylPREDNISolone SOD SUCC 125 MG/2 ML VIAL IV SCH (20:36)
[2017-10-15] MEDS: risperiDONE 1 MG TABLET PO SCH (20:36)
[2017-10-15] MEDS: busPIRone 5 MG TABLET PO SCH (20:37)
[2017-10-15] MEDS: APIXABAN 5 MG TABLET PO SCH (20:37)
[2017-10-15] MEDS: FLUTICASONE/SALMETEROL 50/100 INHALER #14 INH SCH (20:40)
[2017-10-15] MEDS: ACETAMINOPHEN 325 MG TABLET PO PRN (20:43)
[2017-10-15] MEDS ORDERED: FLUTICASONE/SALMETEROL 50/100 INHALER #14 INH SCH (21:00)
[2017-10-15] MEDS ORDERED: busPIRone 5 MG TABLET PO SCH (21:00)
[2017-10-15] MEDS ORDERED: APIXABAN 5 MG TABLET PO SCH (21:00)
[2017-10-15] MEDS: guaiFENesin/DEXTROMETHORPHAN ORAL SOL PO PRN (22:55)
[2017-10-16] MEDS: IPRATROPIUM/ALBUTEROL 3 ML AMPUL.NEB NEB SCH ×6 (04:02→22:34)
[2017-10-16 06:22] LABS: Mean Cell Volume 91.7 fL (80.0-100.0); Mean Corpuscular HGB Conc 33.3 g/dL (31.0-36.0); Mean Corpuscular Hemoglobin 30.5 pg (26.0-34.0); Platelet Count 282 K/mcL (140-440); RBC 3.66 M/mcL (4.00-5.20); Red Cell Distribution Width 14.3 % (11.5-14.5)
[2017-10-16 06:43] LABS: Blood Urea Nitrogen 24 mg/dl (6-20)
[2017-10-16] MEDS: PANTOPRAZOLE 40 MG TABLET PO SCH (07:54)
[2017-10-16 08:38] LABS: Band Neutrophils % 1 % (0-10); Lymphocytes % 5 % (15-49); Monocytes % (Manual) 1 % (1-12); Platelet Estimate NORMAL (NORMAL); RBC Morphology NORMAL (NORMAL); Segmented Neutrophils % 93 % (38-78)
[2017-10-16] MEDS: methylPREDNISolone SOD SUCC 125 MG/2 ML VIAL IV SCH ×2 (08:44→20:36)
[2017-10-16] MEDS: APIXABAN 5 MG TABLET PO SCH ×2 (08:47→20:35)
[2017-10-16] MEDS: FLUTICASONE/SALMETEROL 50/100 INHALER #14 INH SCH ×2 (08:47→21:45)
[2017-10-16] MEDS: busPIRone 5 MG TABLET PO SCH ×2 (08:48→20:36)
[2017-10-16] MEDS: AZITHROMYCIN 250 MG TABLET PO SCH (08:48)
[2017-10-16] MEDS: risperiDONE 1 MG TABLET PO SCH (08:48)
[2017-10-16] MEDS: CITALOPRAM 20 MG TABLET PO SCH (08:49)
[2017-10-16] MEDS: guaiFENesin/DEXTROMETHORPHAN ORAL SOL PO PRN ×2 (08:50→14:15)
[2017-10-16] MEDS ORDERED: risperiDONE 1 MG TABLET PO SCH (09:00)
[2017-10-16] MEDS ORDERED: CITALOPRAM 20 MG TABLET PO SCH (09:00)
[2017-10-16] MEDS ORDERED: NICOTINE 14 MG PATCH TD SCH ×2 (10:00)
--- NOTE | 2017-10-16 10:38 | Internal Med Progress Note ---
Medical - PN: Subj Patient information: Note initiated : 10/16/17 at 10:32 am Service Date, if different from initiated Date: [] Patient: Shelly Marie 57 y/o F admitted on 10/14/17 for SOB/Hypercapnic and Hypoxic Respiratory Failure. Chief Complaint: follow up respiratory failure Interval history: October 14: Admitted after presenting to the ED with dyspnea. Have persistent desaturations. Found to have hypercapnic and hypoxic respiratory failure. Very poor aeration. Was on BiPAP for several hours following admission. October 15: Off of BiPAP, no longer requiring oxygen. Sleeping a lot, though was using methamphetamine approximately 48 hours ago. When awake, alert, able to communicate and maintaining train of thought and conversation. States she is extremely dyspneic with only a few steps. That's been going on for the last week, though have been progressive for a few weeks prior to that. Also complaining of her "insides" hurting and being "scraped". Specifically points to the right lower rib cage and abdomen area. October 16: Dyspnea starting to improve. Still short of breath when coming back from bathroom but not as much. Was trying to describe again the stabbing pain she was having her abdomen as well as pain from her esophagus down into her lower abdomen. Appears to be improving at this time. Had significant coughing bout last night, nonproductive. - Constitutional Vitals: Vital Signs Temp Pulse Resp BP Pulse Ox 98.5 F 71 20 91/49 94 10/16/17 07:54 10/16/17 04:00 10/16/17 07:54 10/16/17 07:54 10/16/17 07:54 Period Temp Pulse Resp BP Sys/Christian Pulse Ox Last 24 Hr 97.7 F-100.6 F 71-88 16-22 81-108/49-86 91-96 Intake and Output 10/15/17 10/16/17 10/16/17 21:59 05:59 13:59 Intake Total 250 / 250 300 / 300 Output Total 175 / 175 300 / 300 Balance 75 / 75 0 / 0 Weight 96 lb Intake & Output: Intake & Output 10/15/17 10/16/17 10/16/17 21:59 05:59 13:59 Intake Total 250 / 250 300 / 300 Output Total 175 / 175 300 / 300 Balance 75 / 75 0 / 0 Weight 96 lb Intake: Oral 250 / 250 300 / 300 Output: Void Amount 175 / 175 300 / 300 Other: Meal Snack sandwhich Percent of Meal Consumed 100% 100% Feeding Ability Independent # Voids 1 1 1 Exam: General: Laying in bed in no distress Chest: Starting to have aeration and air movement in posterior lung nelson. ( Had minimal yesterday). No expiratory wheezes, though peak flow may not be enough to cause wheezing at this point yet. Respirations are mildly labored. Cardiovascular: Regular rate and rhythm, no edema Abdomen: Soft, nontender no flank tenderness, no tenderness along the inferior rib cage margin. No guarding or rebound. Active bowel sounds Neuro: Alert, oriented 3, speech is pressured. Moves all extremities equally. Medical - PN: Obj Da - Labs CBC & Chem 7: 10/16/17 04:39 10/16/17 04:35 Labs: Abnormal Lab Results 10/16/17 10/16/17 10/15/17 04:39 04:35 03:55 RBC 3.66 L 3.92 L Hgb 11.2 L 11.9 L Hct 33.6 L Seg Neutrophils % 93 H 84 H Lymphocytes % 5 L 11 L BUN 24 H Glucose 178 H Calcium 8.5 L Urine Ketones Ur Amphetamines Screen 10/15/17 10/14/17 10/14/17 03:55 15:42 15:42 RBC Hgb Hct Seg Neutrophils % Lymphocytes % BUN Glucose Calcium 8.5 L Urine Ketones 5/tr A Ur Amphetamines Screen Suspect positive A Meds: Medications Acetaminophen (Tylenol) 650 mg PO Q6HP PRN PRN Reason: PAIN/FEVER > 101 Last Admin: 10/15/17 20:43 Dose: 650 mg Albuterol Sulfate (Ventolin) 2.5 mg NEB Q2HP PRN PRN Reason: Dyspnea Albuterol/Ipratropium (Duoneb) 3 ml NEB Q4HRT [facility] Last Admin: 10/16/17 08:31 Dose: Not Given Azithromycin (Zithromax) 250 mg PO DAILY [facility] Stop: 10/18/17 09:01 Last Admin: 10/16/17 08:48 Dose: 250 mg Buspirone HCl (Buspar) 5 mg PO BID [facility] Last Admin: 10/16/17 08:48 Dose: 5 mg Citalopram Hydrobromide (Celexa) 10 mg PO DAILY [facility] Last Admin: 10/16/17 08:49 Dose: 10 mg Guaifenesin (Robitussin Dm) 10 ml PO Q4HP PRN PRN Reason: Cough Last Admin: 10/16/17 08:50 Dose: 10 ml Lorazepam (Ativan) 0.5 mg IV Q2HP PRN PRN Reason: ANXIETY/SEDATION Lorazepam (Ativan) 1 mg PO Q4HP PRN PRN Reason: ANXIETY/SEDATION Methylprednisolone Sodium Succinate (Solu-Medrol) 80 mg IV Q12 [facility] Last Admin: 10/16/17 08:44 Dose: 80 mg Nicotine (Nicoderm) 21 mg TD DAILY@1000 VENUS Ondansetron HCl (Zofran) 4 mg IV Q4HP PRN PRN Reason: Nausea And Vomiting Pantoprazole Sodium (Protonix) 40 mg PO QAMAC [facility] Last Admin: 10/16/17 07:54 Dose: 40 mg Risperidone (Risperdal) 1 mg PO QAM [facility] Last Admin: 10/16/17 08:48 Dose: 1 mg Fluticasone/Salmeterol (Advair 100-50 Diskus) 1 puff INH BID [facility] Last Admin: 10/16/17 08:47 Dose: Not Given Medical - PN: A/P - Time Spent With Patient Total time spent is greater than 50% in coordination of care (as documented) at patient's floor/unit and/or counseling patient: 15 - 24 minutes (1) Acute respiratory failure with hypoxia and hypercapnia Status: Acute Current Visit: Yes (2) Acute exacerbation of chronic obstructive airways disease Status: Acute Current Visit: Yes (3) Metabolic encephalopathy Status: Acute Current Visit: Yes (4) DVT (deep venous thrombosis) Status: Chronic Current Visit: Yes (5) Methamphetamine abuse Status: Chronic Current Visit: Yes (6) Tobacco abuse Status: Chronic Current Visit: Yes - Narrative A/P Narrative: 57-year-old female with severe COPD on imaging, presented with dyspnea, worsening for about a week, had acute exacerbation of COPD, acute hypoxic and hypercapnic respiratory failure, associated encephalopathy and recent methamphetamine use. Acute hypercapnic and hypoxic respiratory failure. Resolved. On room air. Did not check ABG, but encephalopathy has also cleared, so suspect hypercapnea has normalized. Plan: Continue with treatment of COPD. Acute exacerbation of COPD. Remains with significant dyspnea, however today is starting to move air. An minimal to almost no audible breath sounds in the posterior lung nelson for the last 2 days. Still requires active inpatient therapies with IV steroids, aerosols as below. Plan: Continue with intravenous steroids, scheduled DuoNeb, when necessary albuterol, azithromycin for anti-inflammatory effect and COPD exacerbation. Encephalopathy, metabolic. Secondary to hypercapnia and respiratory failure. Resolved Plan: Monitor Venous thrombosis and pulmonary embolism. Diagnosed in May. Initially was noncompliant with warfarin, subsequently discharged on apixaban. Chest CT Sunday without evidence of pulmonary embolism (and not contributing to presentation), but LE duplex with residual left DVT. Plan: Resumed apixaban. Methamphetamine abuse, most recent use Sunday. Plan: Supportive care. Alcohol use. Drinks up to 5 drinks a day, per her history at admission, though that was somewhat unclear. Plan: Monitor for evidence of withdrawal, with CIWA Tobacco abuse. Patient not amenable to counseling at this time. Plan: Supportive care, nicotine patch if needed. Disposition: Suspect 1-2 further days if continues to improve.
[2017-10-16] MEDS: NICOTINE 21 MG PATCH TOPICAL SCH (10:47)
[2017-10-16] MEDS: ACETAMINOPHEN 325 MG TABLET PO PRN (18:19)
[2017-10-17] MEDS: IPRATROPIUM/ALBUTEROL 3 ML AMPUL.NEB NEB SCH ×2 (03:58→07:06)
[2017-10-17 05:56] LABS: Mean Cell Volume 91.4 fL (80.0-100.0); Mean Corpuscular HGB Conc 33.1 g/dL (31.0-36.0); Mean Corpuscular Hemoglobin 30.2 pg (26.0-34.0); Platelet Count 292 K/mcL (140-440); RBC 3.46 M/mcL (4.00-5.20); Red Cell Distribution Width 14.4 % (11.5-14.5)
[2017-10-17 06:19] LABS: Blood Urea Nitrogen 21 mg/dl (6-20)
[2017-10-17 06:45] LABS: Lymphocytes % 8 % (15-49); Monocytes % (Manual) 3 % (1-12); Platelet Estimate NORMAL (NORMAL); RBC Morphology NORMAL (NORMAL); Segmented Neutrophils % 89 % (38-78)
[2017-10-17] MEDS: PANTOPRAZOLE 40 MG TABLET PO SCH (07:22)
--- NOTE | 2017-10-17 09:48 | Discharge Summary ---
Medical - DS: Prov Patient information: Note initiated : 10/17/17 at 9:48 am Service Date, if different from initiated Date: [] Patient: Shelly Marie 57 y/o F admitted on 10/14/17 for SOB/Hypercapnic and Hypoxic Respiratory Failure. Chief Complaint: [] Date of admission: 10/14/17 20:29 Discharge date: 10/17/17 Primary care physician: DONITA Admitting clinician: Shiela Aguilar Consults: 10/14/17 18:48 Consult to Physician [CONS] Stat Comment: Consulting Provider: Shiela Aguilar Reason For Exam: Physician to Consult Discharging clinician: Bro Lyons Medical - DS: Meds - Discharge Medications Prescriptions: Azithromycin [Zithromax] 250 mg PO DAILY #3 tab predniSONE [Prednisone] 40 mg PO QAMCC #8 tab Active and Home Medications: Home Medications Albuterol Sulfate 1.25 mg IH Q4 PRN 06/10/17 [History Confirmed 06/10/17 Last Taken Unknown] Citalopram [Celexa] 10 mg PO DAILY 06/10/17 [History Confirmed 10/15/17 Last Taken Unknown] Nicotine [Nicotine Patch] 21 mg TD DAILY 06/10/17 [History Confirmed 10/15/17 Last Taken Unknown] Omeprazole [Prilosec] 20 mg PO DAILY 06/10/17 [History Confirmed 06/10/17 Last Taken Unknown] risperiDONE [Risperidone Odt] 1 mg PO QAM 06/10/17 [History Confirmed 10/15/17 Last Taken Unknown] traMADol [Ultram] 50 mg PO TIDP PRN 06/10/17 [History Confirmed 06/10/17 Last Taken Unknown] Albuterol Sulfate [Proair Hfa] 2 puff IH Q4-6HP PRN #1 06/29/17 [Rx Confirmed Last Taken Unknown] Apixaban [Eliquis] 5 mg PO BID #60 tablet 06/29/17 [Rx Confirmed 10/15/17 Last Taken Unknown] Fluticasone/Salmeterol [Advair 100-50 Diskus] 1 puff INH BID #1 inhaler [Rx Confirmed 10/15/17 Last Taken Unknown] LORazepam [Ativan] 1 mg PO Q4HP PRN 10/15/17 [History Confirmed 10/15/17 Last Taken Unknown] Sertraline [Zoloft] 50 mg PO DAILY 10/15/17 [History Confirmed 10/15/17 Last Taken Unknown] Warfarin [Coumadin] 5 mg PO DAILY 10/15/17 [History Confirmed 10/15/17 Last Taken Unknown] busPIRone [Buspar] 5 mg PO BID 10/15/17 [History Confirmed 10/15/17 Last Taken Unknown] hydrOXYzine HCL [Hydroxyzine HCl] 25 mg PO TID 10/15/17 [History Confirmed 10/15 Last Taken Unknown] sitaGLIPtin [Januvia] 100 mg PO DAILY 10/15/17 [History Confirmed 10/15/17 Last Taken Unknown] Medical - DS: Hosp Hospital course: Ms. Marie is a 57 year old F with a history of methamphetamine abuse, DVT with pulmonary embolism and chronic medical noncompliance, underlying COPD, ongoing tobacco abuse who presented to the emergency department complaining of dyspnea. History is obtained in speaking with the patient, though it somewhat limited due to her somnolence. History is also obtained in reviewing old records which are obtained and summarized as below. Patient states that she is been short of breath for 18 years. This seems to have worsened over the last week. Her chief complaint is being tired as well as short of breath. She has a history of methamphetamine abuse, this summer had just gotten out of rehabilitation, had relapse prior to admission for leg swelling where she was diagnosed with DVT and a small PE. She was readmitted later in the summer, had resumed using methamphetamine. She states that she did use methamphetamine, snorted one line yesterday. She felt this "calmed down " her breathing. The patient is unable to give much more history, she drowse his off, has to be shaken constantly to wake back up. At one point she does ask to have someone "check my insides", but cannot elaborate. In the emergency department, he had mild hypoxia arrest, was treated with DuoNeb 's, subsequently received steroids. She developed periods of anxiety with associated desaturations into the 70s while on 1-2 L nasal cannula. Subsequent ABG showed evidence of acute hypoxic and hypercapnic respiratory failure. In spite of several rounds of bronchodilators and steroids in the ED, she still had significantly impaired air movement and respiratory failure and is being admitted for further treatment Acute hypoxic respiratory failure/ Hypercapenic respiratory failure, was secondary to copd exacerbation likely secondary to methamphetamine use. The patient utox was positive for meth, she was treated with bipap, IV steroids, duonebs with good response. She took 3 days to open up, but on the day of discharge she was able to breathe well, ambulate without any effort. DVT? PE: Supposed to be on eliquis for same, I have removed coumadin from her med list as she should not be on both coumadin and eliquis. The rest of the stay in the hospital was unremarkable. At the time of discharge the patient was doing well, tolerating po diet, ambulating without any effort and had no acute complaints or concerns. Discharge diagnosis: COPD exacerbation, Respiratory Failure - Time Spent with Patient Total time spent providing and/or coordinating discharge services: Greater than 30 minutes Medical - DS: Exam - Constitutional Vitals: Vital Signs Temp Pulse Pulse Resp BP Pulse Ox 10/17/17 07:29 98.5 F 18 106/64 96 10/17/17 04:00 97.9 F 96 H 18 106/64 96 10/16/17 23:51 98.3 F 100 H 18 92/52 95 10/16/17 22:39 97 H 18 10/16/17 22:15 20 95 10/16/17 20:00 97.6 F 97 H 18 109/65 96 10/16/17 19:05 89 18 10/16/17 18:59 97 10/16/17 16:00 98.2 F 20 96/64 92 10/16/17 11:27 98.7 F 20 92/83 94 Intake and Output 10/16/17 10/17/17 10/17/17 21:59 05:59 13:59 Intake Total 480 / 480 450 / 450 Output Total 350 / 350 Balance 480 / 480 450 / 450 -350 / -350 Intake: Oral 480 / 480 450 / 450 Output: Void Amount 350 / 350 Other: Meal Nourishment/Supplement Nourishment/Supplement Percent of Meal Consumed 100% 100% Feeding Ability Independent Independent # Voids 1 1 Weight 95 lb 8 oz Additional comments: Constitutional; Afebrile, cooperative, alert, not in distress. Eyes- No icterus, , No periorbital swelling Ears- Ext ear normal, hearing normal to conversation. Neck- Midline trachea, supple Respiratory system: Air Entry equal on both sides, No crackles or wheezing, no rhonchi. CVS- Rate rhythm regular, S1,S2 heard, no gallop, no rub. Abdomen- Soft nontender abdomen, no organomegaly, no tenderness, no guarding or rigidity, [employer]- AOOx3, moving all extremities, no gross focal deficit noted. Medical - DS: Data Procedures and tests throughout hospitalization: X ray chest IMPRESSION: 1. COPD 2. No acute abnormality. No interval change CT angio for PE. IMPRESSION: Negative pulmonary CTA IMPRESSION: Small segments of subocclusive chronic thrombus in the distal left external iliac, common femoral and popliteal veins. Right lower extremity venous system is unremarkable Labs on day of discharge: Labs from last 24 hours 10/17/17 10/17/17 04:38 04:38 WBC 10.9 RBC 3.46 L Hgb 10.4 L Hct 31.6 L MCV 91.4 MCH 30.2 MCHC 33.1 RDW 14.4 Plt Count 292 MPV 8.8 Total Counted 100 Seg Neutrophils % 89 H Band Neutrophils % Not Reportable Lymphocytes % 8 L Monocytes % (Manual) 3 WBC Morphology Normal Platelet Estimate Normal RBC Morphology Normal Sodium 146 H Potassium 4.0 Chloride 107 Carbon Dioxide 27 Anion Gap 12.0 BUN 21 H Creatinine 0.9 GFR Calculation 70 Glucose 195 H Calcium 8.4 L Medical - DS: A/P - Patient/Caregiver Discharge Instructions Activity: increase activity as tolerated Diet: Regular Diet Additional Instructions: Take medications as prescribed Stop using methamphetamine as this the reason for your recurrent hospital admissions with respiratory issues. Go to the ER if worsening shortness of breath and or any other complaints Please follow up with your PCP in 7 days - Follow up Plan Disposition: Home, Self-Care Prognosis: Fair Rehab Potential: Fair I certify that the patient requires SNF services: No Overall status at discharge: patient is progressing back to baseline
[2017-10-17] MEDS: methylPREDNISolone SOD SUCC 125 MG/2 ML VIAL IV SCH (09:56)
[2017-10-17] MEDS: APIXABAN 5 MG TABLET PO SCH (09:57)
[2017-10-17] MEDS: risperiDONE 1 MG TABLET PO SCH (09:57)
[2017-10-17] MEDS: AZITHROMYCIN 250 MG TABLET PO SCH (09:57)
[2017-10-17] MEDS: busPIRone 5 MG TABLET PO SCH (09:57)
[2017-10-17] MEDS: CITALOPRAM 20 MG TABLET PO SCH (09:57)
[2017-10-17] MEDS: FLUTICASONE/SALMETEROL 50/100 INHALER #14 INH SCH (09:58)
[2017-10-17] MEDS: NICOTINE 21 MG PATCH TOPICAL SCH (10:07)
== END 2017-10-17 10:55 | disposition home or self-care (01) | DRG 189 ==
LOC: ED 09:49 → ICU 20:09 → MEDSUR 10-15 19:00
PROVIDERS: ADMIT Internal Medicine; ATTEND Internal Medicine

== ENCOUNTER 2018-02-08 10:02 | Observation (INO) ==
[2018-02-08] MEDS ORDERED: IPRATROPIUM/ALBUTEROL 3 ML AMPUL.NEB NEB ONE (10:10)
[2018-02-08] MEDS ORDERED: 0.9 % SODIUM CHLORIDE 1,000 ML IV ONE (10:12)
[2018-02-08] MEDS ORDERED: methylPREDNISolone SOD SUCC 125 MG/2 ML VIAL IV ONE (10:12)
--- NOTE | 2018-02-08 10:22 | Emergency Department Note ---
General Adult HPI - General Chief complaint: Chest Pain Stated complaint: Chest pain, SOB Time Seen by Provider: 02/08/18 10:12 Source: patient Mode of arrival: ambulatory Limitations: no limitations - History of Present Illness HPI Narrative: 57-year-old female with known COPD comes in with a 2-3 day history of shortness of breath and wheezing. She cannot talk well due to significant dyspnea so history/review of systems is limited. We immediately started workup with EKG and DuoNeb. After single DuoNeb treatment, her oxygen saturations improved from 93-96%. She came in with a low-grade temperature elevation to 100.0 tachypneic tachycardic. Breathing has improved since that she can answer questions well and answer with short phrases but not full sentences. She endorses nausea but no vomiting or diarrhea. Also having some urinary incontinence On review of her chart note that she was admitted here from 10/14/2017 to 2016 for similar picture -COPD exacerbation. Patient endorses history of flu with that. I did review that history and physical - Related Data Home Medications Medication Instructions Recorded Confirmed Albuterol Sulfate 1.25 mg IH Q4 PRN 06/10/17 06/10/17 Citalopram [Celexa] 10 mg PO DAILY 06/10/17 10/15/17 Nicotine [Nicotine Patch] 21 mg TD DAILY 06/10/17 10/15/17 Omeprazole [Prilosec] 20 mg PO DAILY 06/10/17 06/10/17 risperiDONE [Risperidone Odt] 1 mg PO QAM 06/10/17 10/15/17 traMADol [Ultram] 50 mg PO TIDP PRN 06/10/17 06/10/17 LORazepam [Ativan] 1 mg PO Q4HP PRN 10/15/17 10/15/17 Sertraline [Zoloft] 50 mg PO DAILY 10/15/17 10/15/17 busPIRone [Buspar] 5 mg PO BID 10/15/17 10/15/17 hydrOXYzine HCL [Hydroxyzine HCl] 25 mg PO TID 10/15/17 10/15/17 sitaGLIPtin [Januvia] 100 mg PO DAILY 10/15/17 10/15/17 Previous Rx's Medication Instructions Recorded Albuterol Sulfate [Proair Hfa] 2 puff IH Q4-6HP PRN #1 06/29/17 Apixaban [Eliquis] 5 mg PO BID #60 tablet 06/29/17 Fluticasone/Salmeterol [Advair 1 puff INH BID #1 inhaler 06/29/17 100-50 Diskus] Azithromycin [Zithromax] 250 mg PO DAILY #3 tab 10/17/17 Doxycycline Hyclate [Vibramycin] 100 mg PO BID #20 cap 11/27/17 Azithromycin [Zithromax] 0 mg PO DAILY #6 tab 12/23/17 predniSONE [Prednisone] 40 mg PO [facility] #8 tab 12/23/17 Azithromycin [Zithromax] 250 mg PO DAILY #4 tab 01/27/18 predniSONE [Prednisone] 20 mg PO DAILY #23 tab 01/27/18 Allergies Allergy/AdvReac Type Severity Reaction Status Date / Time No Known Drug Allergies Allergy Verified 12/22/17 23:56 Review of Systems Limitations: ROS unobtainable due to patients medical condition Past Medical History - Past Medical History Attestation: Yes: The following information was validated with the patient. Medical history: Reports: COPD, DVT, pulmonary embolus. Denies: DM (I see on her chart that she has diabetes medicine but she denies history of diabetes) Psychiatric history: Reports: anxiety. Denies: schizophrenia (Denies history of ) Surgical history ED: Reports: tonsillectomy - Social History smoking status: Current every day smoker Alcohol use: Reports: Frequently, Daily (4-5 drinks yesterday) Drug use: Reports: methamphetamine (Last use 3-4 days ago), IVDU Physical Exam Thin female in some respiratory distress acutely. Significant dyspnea on initial exam. End expiratory wheeze cannot talk well in full sentences. Normocephalic atraumatic. Conjunctive are clear sclerae nonicteric. No nasal discharge or congestion. Oropharynx pink and moist. Note athetotic movements of tongue, neck and left hand consistent with tardive dyskinesia although patient denies history of antipsychotic use or schizophrenia. Neck is supple without lymphadenopathy thyromegaly. Heart is regular rhythm but slightly tachycardic. Lungs are clear to auscultation and what I am able to hear but her breathing is shallow and tight with significant end expiratory wheeze despite adequate pulse oximetry. Her fingers do look somewhat clubbed and cyanotic to me. Abdomen is soft nontender nondistended-palpation seems to make her nausea worse. No peritoneal signs rigidity or guarding. No pedal edema. She is alert oriented able to answer questions although limited as above by tachypnea and shortness of breath Limitations: no limitations Course Vital Signs Temperature 100.0 F H 02/08/18 10:03 Pulse Rate 94 H 02/08/18 10:03 Respiratory Rate 32 H 02/08/18 10:03 Blood Pressure 134/103 02/08/18 10:03 Pulse Oximetry (%) 93 02/08/18 10:03 Temperature 100.0 F H 02/08/18 10:03 Pulse Rate 88 02/08/18 12:14 Respiratory Rate 22 02/08/18 11:50 Blood Pressure 110/95 02/08/18 10:45 Pulse Oximetry (%) 98 02/08/18 11:44 Medical Decision Making - Lab Data Lab results reviewed: Yes I reviewed the patient's lab results. Result diagrams: 02/08/18 10:23 02/08/18 10:23 Lab Results 02/08/18 02/08/18 02/08/18 Range/Units 10:18 10:23 10:23 WBC 11.3 H (4.5-11.0) K/mcL RBC 4.57 (4.00-5.20) M/mcL Hgb 13.6 (12.0-15.0) g/dL Hct 41.9 (36.0-48.0) % POC Hct (36.0-48.0) % MCV 91.7 (80.0-100.0) fL MCH 29.7 (26.0-34.0) pg MCHC 32.4 (31.0-36.0) g/dL RDW 13.5 (11.5-14.5) % Plt Count 343 (140-440) K/mcL MPV 8.3 (7.4-10.4) fL Gran % 80.8 H (38.0-78.0) % Lymph % (Auto) 11.8 L (15.5-49.0) % [place] % (Auto) 5.1 (1.0-12.0) % Eos % (Auto) 1.7 (0.0-7.0) % Baso % (Auto) 0.6 (0.0-2.0) % Gran # 9.1 H (1.8-8.0) K/mcL Lymph # (Auto) 1.3 L (1.5-4.8) K/mcL [place] # (Auto) 0.6 (0.1-0.9) K/mcL Eos # (Auto) 0.2 (0.0-0.7) K/mcL Baso # (Auto) 0.1 (0.0-0.3) K/mcL PT 12.5 (11.9-14.5) sec INR 0.9 (0.9-1.1) APTT 26 (20-37) sec D-Dimer < 0.27 (0.00-0.40) ug/ml VBG Lactic Acid 1.4 (0.5-2.2) mmol/L POC Sodium (133-145) mmol/L Sodium (133-145) mmol/L POC Potassium (3.3-5.1) mmol/L Potassium (3.3-5.1) mmol/L POC Chloride (96-108) mmol/L Chloride (96-108) mmol/L Carbon Dioxide (22-30) mmol/L POC Total CO2 (22-30) mmol/L Anion Gap (8-16) POC BUN (6-20) mg/dl BUN (6-20) mg/dl Creatinine (0.6-1.1) mg/dl POC Creatinine (0.6-1.1) mg/dl GFR Calculation Glucose (70-105) mg/dL POC Glucose (70-105) mg/dL Calcium (8.6-10.4) mg/dl POC WB Ioniz Calcium (1.16-1.32) mmol/L Magnesium (1.6-2.5) mg/dL Total Bilirubin (0.0-1.0) mg/dL AST (0-37) U/l ALT (0-40) U/l Alkaline Phosphatase (39-117) U/L Troponin T (0-0.03) ng/ml NT-Pro-B Natriuret Pep (0-125) pg/ml Total Protein (5.9-8.4) gm/dL Albumin (3.2-5.2) gm/dL Globulin (2.2-3.7) gm/dL Albumin/Globulin Ratio (1.0-2.3) Urine Opiates Screen (NONDETECTED) Ur Oxycodone Screen (NONDETECTED) Urine Methadone Screen (NONDETECTED) Ur Barbiturates Screen (NONDETECTED) Ur Phencyclidine Scrn (NONDETECTED) Ur Amphetamines Screen (NONDETECTED) U Benzodiazepines Scrn (NONDETECTED) Urine Cocaine Screen (NONDETECTED) U Marijuana (THC) Screen (NONDETECTED) 02/08/18 02/08/18 02/08/18 Range/Units 10:23 10:23 11:21 WBC (4.5-11.0) K/mcL RBC (4.00-5.20) M/mcL Hgb (12.0-15.0) g/dL Hct (36.0-48.0) % POC Hct 38.0 (36.0-48.0) % MCV (80.0-100.0) fL MCH (26.0-34.0) pg MCHC (31.0-36.0) g/dL RDW (11.5-14.5) % Plt Count (140-440) K/mcL MPV (7.4-10.4) fL Gran % (38.0-78.0) % Lymph % (Auto) (15.5-49.0) % [place] % (Auto) (1.0-12.0) % Eos % (Auto) (0.0-7.0) % Baso % (Auto) (0.0-2.0) % Gran # (1.8-8.0) K/mcL Lymph # (Auto) (1.5-4.8) K/mcL [place] # (Auto) (0.1-0.9) K/mcL Eos # (Auto) (0.0-0.7) K/mcL Baso # (Auto) (0.0-0.3) K/mcL PT (11.9-14.5) sec INR (0.9-1.1) APTT (20-37) sec D-Dimer (0.00-0.40) ug/ml VBG Lactic Acid (0.5-2.2) mmol/L POC Sodium 140 (133-145) mmol/L Sodium 144 (133-145) mmol/L POC Potassium 5.0 (3.3-5.1) mmol/L Potassium 4.7 (3.3-5.1) mmol/L POC Chloride 106 (96-108) mmol/L Chloride 104 (96-108) mmol/L Carbon Dioxide 28 (22-30) mmol/L POC Total CO2 30 (22-30) mmol/L Anion Gap 12.0 (8-16) POC BUN 25 H (6-20) mg/dl BUN 18 (6-20) mg/dl Creatinine 0.8 (0.6-1.1) mg/dl POC Creatinine 0.7 (0.6-1.1) mg/dl GFR Calculation 81 Glucose 110 H (70-105) mg/dL POC Glucose 107 H (70-105) mg/dL Calcium 9.1 (8.6-10.4) mg/dl POC WB Ioniz Calcium 0.99 L (1.16-1.32) mmol/L Magnesium 2.2 (1.6-2.5) mg/dL Total Bilirubin < 0.2 (0.0-1.0) mg/dL AST 19 (0-37) U/l ALT 10 (0-40) U/l Alkaline Phosphatase 71 (39-117) U/L Troponin T < 0.01 (0-0.03) ng/ml NT-Pro-B Natriuret Pep 158.8 H (0-125) pg/ml Total Protein 6.8 (5.9-8.4) gm/dL Albumin 4.4 (3.2-5.2) gm/dL Globulin 2.4 (2.2-3.7) gm/dL Albumin/Globulin Ratio 1.8 (1.0-2.3) Urine Opiates Screen None detected (NONDETECTED) Ur Oxycodone Screen None detected (NONDETECTED) Urine Methadone Screen None detected (NONDETECTED) Ur Barbiturates Screen None detected (NONDETECTED) Ur Phencyclidine Scrn None detected (NONDETECTED) Ur Amphetamines Screen Suspect positive A (NONDETECTED) U Benzodiazepines Scrn None detected (NONDETECTED) Urine Cocaine Screen None detected (NONDETECTED) U Marijuana (THC) Screen None detected (NONDETECTED) ABG shows pH 7.38 PCO2 of 56 and PO2 of 68-this is consistent with previous ABGs over the last year which show baseline approximately 7.4/52/80-i.e. her baseline is likely mildly hypercapnic and hypoxic. Is not on home oxygen Urinalysis [id number] dipstick shows specific gravity 1.030 otherwise unremarkable - Radiology Data Radiology results reviewed: Yes I reviewed the patient's radiology results. Chest x-ray shows no acute abnormality but is consistent with known COPD including hyperinflation and inferiorly displaced heart - EKG Data EKG #1 EKG attestation: Yes I reviewed and interpreted this EKG. EKG results narrative: EKG shows a rate of 90 sinus rhythm with low voltage likely from her lung disease. There is right axis deviation again likely from lung disease. I do not see evidence of ischemia Disposition Pt seen by [employer]/PA only: No Clinical Impression: COPD with exacerbation, Hypoxia, Methamphetamine abuse Summary: Initially seen and evaluated as above after EKG and DuoNeb treatment. IV fluids and Solu-Medrol started. Workup initiated with chest x-ray laboratory. Not requiring oxygen at this time-but will add low dose to see if we can help her breathe a little easier. She was still having trouble breathing so she was given 10 mg continuous albuterol nebs-her oxygen saturations improved but she was still working pretty hard to breathe. I discussed with her possible admission for IV steroids, fluids and around-the- clock breathing treatments. She will also need smoking cessation counseling I discussed with Dr. Lyons, our hospitalist, admission for hypoxia with COPD exacerbation. He agreed to accept her for admission Disposition: Xfer As Inpt ([facility]) Condition: Serious Referrals: Gretel Huang DO [Primary Care Provider] -
[2018-02-08 10:54] LABS: Basophils # (Auto) 0.1 K/mcL (0.0-0.3); Basophils % (Auto) 0.6 % (0.0-2.0); Eosinophils # (Auto) 0.2 K/mcL (0.0-0.7); Eosinophils % (Auto) 1.7 % (0.0-7.0); Granulocytes % (Auto) 80.8 % (38.0-78.0); Lymphocytes # (Auto) 1.3 K/mcL (1.5-4.8); Lymphocytes % (Auto) 11.8 % (15.5-49.0); Mean Cell Volume 91.7 fL (80.0-100.0); Mean Corpuscular HGB Conc 32.4 g/dL (31.0-36.0); Mean Corpuscular Hemoglobin 29.7 pg (26.0-34.0); Monocytes # (Auto) 0.6 K/mcL (0.1-0.9); Monocytes % (Auto) 5.1 % (1.0-12.0); Platelet Count 343 K/mcL (140-440); RBC 4.57 M/mcL (4.00-5.20); Red Cell Distribution Width 13.5 % (11.5-14.5)
--- NOTE | 2018-02-08 11:09 | XRay Report ---
INDICATION: Chest pain. Dyspnea. TECHNIQUE: PA and lateral upright chest x-ray COMPARISON: Previous chest x-rays dated 01/27/2018, 11/27/2017, 10/14/2017 FINDINGS:Hyperexpansion consistent with COPD. Lungs are negative. No parenchymal infiltrate or mass. No acute abnormality or interval change. Heart size and vascularity are normal. Allie and mediastinum are negative. No pleural fluid. IMPRESSION: 1. Appearance consistent with COPD 2. No acute abnormality. No interval change Interpreted and Authenticated by: Reggie Maldonado 02/08/18
[2018-02-08 11:14] LABS: Partial Thromboplastin Time 26 sec (20-37)
[2018-02-08 11:16] LABS: proBNP 158.8 pg/ml (0-125)
[2018-02-08 11:17] LABS: ALT/SGPT 10 U/l (0-40); Albumin 4.4 gm/dL (3.2-5.2); Albumin/Globulin Ratio 1.8 (1.0-2.3); Alkaline Phosphatase 71 U/L (39-117); Blood Urea Nitrogen 18 mg/dl (6-20)
[2018-02-08] MEDS ORDERED: ALBUTEROL SULFATE 5 MG/ML NEB SOLUTION BOTTLE NEB ONE (11:32)
[2018-02-08 12:03] LABS: Amphetamine Screen,Urine SUSPECT POSITIVE (NONDETECTED); Benzodiazepines Screen,Urine NONE DETECTED (NONDETECTED); Cocaine Screen,Urine NONE DETECTED (NONDETECTED); Opiate Screen,Urine NONE DETECTED (NONDETECTED); Oxycodone, Urine Screen NONE DETECTED (NONDETECTED)
--- NOTE | 2018-02-08 14:10 | Internal Med History&Physical ---
Medical - H&P: HPI Patient information: Note initiated : 02/08/18 at 2:08 pm Service Date, if different from initiated Date: [] Patient: Shelly Marie a 57 y/o F admitted on for Chest Pain, SOB. Chief Complaint: [] History of present illness: Ms. Marie is a 57 year old Female with history of chronic tobacco use, COPD, chronic methamphetamine use presents to the emergency room with complaints of chest pain and shortness of breath that has been going on for the last 2 days. According to the patient she fell down 2 days ago and hurt the midline of her chest and she has some chest pain which is worse with inspiration. The patient notes that since yesterday she has also been having shortness of breath and worsening cough from her baseline. She denies any fever or chills but notes that she had a temperature when she was checked in. The patient notes her cough is associated with some sputum unable to tell me the color or quantify the amount. She notes that she has increased shortness of breath with activity and this is a change from her baseline. The patient notes she used methamphetamine approximately 4 days ago, has been drinking alcohol, still smoking, and notes that she has not been taking her regular medications. She ran out of her inhaler? In the emergency room she had a low-grade temperature of 100, heart rate around 90, respiratory rate between 24-28, patient was saturating between 86-94% on room air. Her labs showed leukocytosis with a WBC count of 11.3 hemoglobin 13.6 platelets 343, INR 0.9 lactic acid 1.4, her basic metabolic profile was unremarkable She had a troponin of less than 0.01, BNP of 158 EKG did not show signs of any acute ischemia The patient's chest x-ray did not reveal any infiltrates was interpreted as COPD. The ED provider was concerned about the patient's respiratory pattern she was tachypneic and had some abnormal jerky movements the patient was admitted to the hospital with a diagnosis of COPD exacerbation. Review of systems: CONSTITUTIONAL: No weight loss, present fever, prseent chills, present weakness and fatigue. HEENT: Eyes: No visual loss, blurred vision, double vision or yellow sclerae. Ears, Nose, Throat: No hearing loss, sneezing, congestion, runny nose or sore throat. SKIN: No rash or itching. CARDIOVASCULAR: Chest pain with cough present ,no chest pressure or chest discomfort. No palpitations or edema. RESPIRATORY: Shortness of breath and cough present worse than before GASTROINTESTINAL: No nausea, vomiting or diarrhea or constipation. No abdominal pain or blood in stools No Cherry. GENITOURINARY: Denies Burning on urination. Blood in urine, or foul smelling urine NEUROLOGICAL: No headache, dizziness, syncope, paralysis, numbness or tingling in the extremities. No change in bowel or bladder control. MUSCULOSKELETAL: No muscle, back pain, joint pain or stiffness. HEMATOLOGIC: No bleeding or bruising. No enlarged nodes PSYCHIATRIC: Patient admits to anxiety ENDOCRINOLOGIC: No reports of sweating, cold or heat intolerance. No polyuria or polydipsia. ALLERGIES: No hives, eczema or rhinitis. Skin: No rash, no jaundice, cyanosis or pallor. Medical - H&P: PMH Medical history: COPD Anxiety Tobacco abuse Chronic methamphetamine use Deep vein thrombosis Pulmonary embolism Chronic noncompliance with medication Pertinent family history: History of alcoholism in the family Social history: Still smokes Regular meth user Heavy drinker, had 2 large beers last night Medical - H&P: Meds Home Medications Medication Instructions Recorded Confirmed Type Albuterol Sulfate [Proair Hfa] 2 puff IH Q4-6HP PRN #1 06/29/17 02/08/18 Rx Apixaban [Eliquis] 5 mg PO BID #60 tablet 06/29/17 02/08/18 Rx busPIRone [Buspar] 5 mg PO BID 10/15/17 02/08/18 History hydrOXYzine HCL [Hydroxyzine HCl] 25 mg PO TID 10/15/17 02/08/18 History predniSONE [Prednisone] 20 mg PO DAILY #23 tab 01/27/18 02/08/18 Rx Allergies Allergy/AdvReac Type Severity Reaction Status Date / Time No Known Drug Allergies Allergy Verified 12/22/17 23:56 Medical - H&P: Exam - Constitutional Vitals: Temp Pulse Resp BP Pulse Ox 100.0 F H 93 H 28 H 111/76 94 02/08/18 10:03 02/08/18 13:47 02/08/18 13:47 02/08/18 13:45 02/08/18 13:47 Exam: GENERAL: The patient is a well-developed, well-nourished in no apparent distress. Is alert and oriented x3. VITAL SIGNS: Reviewed and as noted elsewhere. HEENT: Head is normocephalic and atraumatic. Extraocular muscles are intact. Pupils are equal, round, and reactive to light. Nares appeared normal. Mouth appears any without lesions. Mucous membranes are moist. NECK: Normal to inspection, Supple, No lymphadenopathy or thyromegaly. LUNGS: Air entry significantly decreased in both sides, prolonged expiratory phase, patient speaks a few words at a time however not short of this is due to respiratory distress or related to patient's tremors. HEART: Regular rate and rhythm normal, S1 and S2 heard, no Gallop, S3 or Rub Noted, No Gross murmur heard. ABDOMEN: Soft, nontender, and nondistended. Positive bowel sounds. No hepatosplenomegaly was noted. EXTREMITIES: No cyanosis, clubbing, rash, bilateral pedal edema +1 NEUROLOGIC: Cranial nerves II through XII are grossly intact. Motor and Sensory System Grossly Intact, pin rolling tremors present in both arms, patient has perioral tremors and tradive dyskinesia. PSYCHIATRIC: Normal affect, patient is fidgety and anxious SKIN: No ulceration or wounds noted, No jaundice, No rash noted. Medical - H&P: Reslt - Labs CBC & Chem 7: 02/08/18 10:23 02/08/18 10:23 Labs: Short CBC 02/08/18 Range/Units 10:23 WBC 11.3 H (4.5-11.0) K/mcL Hgb 13.6 (12.0-15.0) g/dL Hct 41.9 (36.0-48.0) % Plt Count 343 (140-440) K/mcL [facility] 02/08/18 10:23 Sodium 144 Potassium 4.7 Chloride 104 Carbon Dioxide 28 BUN 18 Creatinine 0.8 Glucose 110 H Calcium 9.1 Cardiac Enzymes 02/08/18 Range/Units 10:23 Troponin T < 0.01 (0-0.03) ng/ml Liver Function 02/08/18 Range/Units 10:23 Total Bilirubin < 0.2 (0.0-1.0) mg/dL AST 19 (0-37) U/l ALT 10 (0-40) U/l Alkaline Phosphatase 71 (39-117) U/L Albumin 4.4 (3.2-5.2) gm/dL Medical - H&P: A/P - Narrative A/P Narrative: A/P Acute exacerbation of COPD Anxiety Methamphetamine use, Tobacco abuse Alcoholism DVT Pulmonary embolism Diabetes Mellitis Plan monitor on tele IV steroids, duonebs and doxycyclnie for copd resume home meds for anxiety, she is on respiridone, I am not sure if her abnormal movement are withdrawal from her chr psych meds or related to meth use. IV thiamine IV fluids resume eliquis, check usg lower extremity for DVT Pt counselled again to quit smoking, meth use and etoh. Sliding scale insulin for now. Full code Carb consistent diet
[2018-02-08] MEDS ORDERED: IOPAMIDOL 100 ML BOTTLE IV ONE (14:26)
[2018-02-08] MEDS ORDERED: NALOXONE HCL 0.4 MG/ML VIAL IV PRN (14:56)
[2018-02-08] MEDS ORDERED: DEXTROSE 50% 50 ML VIAL IV PRN (14:56)
[2018-02-08] MEDS ORDERED: DEXTROSE 31 GM ORAL.SUSP PO PRN (14:56)
[2018-02-08] MEDS ORDERED: ACETAMINOPHEN 325 MG TABLET PO PRN (14:56)
[2018-02-08] MEDS: methylPREDNISolone SOD SUCC 125 MG/2 ML VIAL IV SCH (15:10)
[2018-02-08] MEDS: 0.9 % SODIUM CHLORIDE 10 ML SYRINGE IV SCH (15:10)
[2018-02-08] MEDS: DEXTROSE 5%-1/2NS 1,000 ML IV SCH (15:20)
[2018-02-08] MEDS: DOXYCYCLINE HYCLATE 100 MG TABLET.ORL PO SCH ×2 (15:20→21:19)
[2018-02-08] MEDS: THIAMINE 100 MG in 0.9 % SODIUM CHLORIDE 50 ML IV SCH (16:13)
[2018-02-08] MEDS: IPRATROPIUM/ALBUTEROL 3 ML AMPUL.NEB NEB SCH ×3 (16:22→23:43)
--- NOTE | 2018-02-08 16:42 | Ultrasound Report ---
CLINICAL INFORMATION: Bilateral leg pain and swelling. History of DVT in the left lower extremity TECHNIQUE: Grayscale and color flow Doppler spectral imaging COMPARISON: Previous examination dated 10/15/2017 FINDINGS: There is a small amount of nonocclusive thrombus within the left common femoral vein extending to the common femoral-greater saphenous junction. This was present previously. There is interval improvement but not complete resolution. Clot was more extensive on the previous examination. Left superficial femoral vein, popliteal vein, and calf veins are negative Negative right lower extremity deep venous ultrasound. Negative right common femoral vein, superficial femoral vein, popliteal vein. Calf veins are negative. Greater and lesser saphenous veins are negative IMPRESSION: 1. Small amount of residual nonocclusive thrombus within the left common femoral vein. Appearance is improved compared with 10/15/2017 2. Negative right lower extremity deep venous ultrasound Interpreted and Authenticated by: Reggie Maldonado 02/08/18
[2018-02-08] MEDS: INSULIN LISPRO 1 UNIT/0.01 ML UNIT SQ SCH ×2 (16:52→21:19)
[2018-02-09] MEDS: 0.9 % SODIUM CHLORIDE 10 ML SYRINGE IV SCH ×4 (00:15→21:35)
[2018-02-09] MEDS: methylPREDNISolone SOD SUCC 125 MG/2 ML VIAL IV SCH ×4 (00:15→21:35)
[2018-02-09] MEDS: IPRATROPIUM/ALBUTEROL 3 ML AMPUL.NEB NEB SCH ×4 (03:24→18:55)
[2018-02-09] MEDS: DEXTROSE 5%-1/2NS 1,000 ML IV SCH ×3 (05:05→22:37)
[2018-02-09] MEDS ORDERED: busPIRone 5 MG TABLET PO SCH (09:00)
[2018-02-09] MEDS ORDERED: APIXABAN 5 MG TABLET PO SCH (09:00)
[2018-02-09 09:12] LABS: Basophils # (Auto) 0 K/mcL (0.0-0.3); Basophils % (Auto) 0.1 % (0.0-2.0); Eosinophils # (Auto) 0.4 K/mcL (0.0-0.7); Eosinophils % (Auto) 2.5 % (0.0-7.0); Granulocytes % (Auto) 93.5 % (38.0-78.0); Lymphocytes # (Auto) 0.5 K/mcL (1.5-4.8); Lymphocytes % (Auto) 2.8 % (15.5-49.0); Mean Cell Volume 91.4 fL (80.0-100.0); Mean Corpuscular Hemoglobin 30.2 pg (26.0-34.0); Monocytes # (Auto) 0.2 K/mcL (0.1-0.9); Monocytes % (Auto) 1.1 % (1.0-12.0); Platelet Count 292 K/mcL (140-440); RBC 3.77 M/mcL (4.00-5.20); Red Cell Distribution Width 13.6 % (11.5-14.5)
[2018-02-09 09:33] LABS: ALT/SGPT 10 U/l (0-40); Albumin 3.7 gm/dL (3.2-5.2); Albumin/Globulin Ratio 2.2 (1.0-2.3); Alkaline Phosphatase 53 U/L (39-117); Bilirubin,Direct < 0.2 mg/dL (0.0-0.3); Blood Urea Nitrogen 17 mg/dl (6-20); Gamma Glutamyl Transpeptidase 8 U/L (5-36); Uric Acid 2.7 mg/dL (2.5-8.0)
[2018-02-09] MEDS ORDERED: FLU VACC QS2017-18 36MOS UP/PF 60 MCG/0.5 ML SYRINGE IM ONE (10:00)
[2018-02-09] MEDS: INSULIN LISPRO 1 UNIT/0.01 ML UNIT SQ SCH ×4 (10:39→20:24)
--- NOTE | 2018-02-09 10:59 | Internal Med Progress Note ---
Medical - PN: Subj Patient information: Note initiated : 02/09/18 at 10:52 am Service Date, if different from initiated Date: [] Patient: Shelly Marie a 57 y/o F admitted on 02/08/18 for Chest Pain, SOB. Chief Complaint: [] Interval history: Ms. Marie is a 57 year old Female with history of chronic tobacco use, COPD, chronic methamphetamine use presents to the emergency room with complaints of chest pain and shortness of breath that has been going on for the last 2 days. According to the patient she fell down 2 days ago and hurt the midline of her chest and she has some chest pain which is worse with inspiration. The patient notes that since yesterday she has also been having shortness of breath and worsening cough from her baseline. She denies any fever or chills but notes that she had a temperature when she was checked in. The patient notes her cough is associated with some sputum unable to tell me the color or quantify the amount. She notes that she has increased shortness of breath with activity and this is a change from her baseline. The patient notes she used methamphetamine approximately 4 days ago, has been drinking alcohol, still smoking, and notes that she has not been taking her regular medications. She ran out of her inhaler? In the emergency room she had a low-grade temperature of 100, heart rate around 90, respiratory rate between 24-28, patient was saturating between 86-94% on room air. Her labs showed leukocytosis with a WBC count of 11.3 hemoglobin 13.6 platelets 343, INR 0.9 lactic acid 1.4, her basic metabolic profile was unremarkable She had a troponin of less than 0.01, BNP of 158 EKG did not show signs of any acute ischemia The patient's chest x-ray did not reveal any infiltrates was interpreted as COPD. The ED provider was concerned about the patient's respiratory pattern she was tachypneic and had some abnormal jerky movements the patient was admitted to the hospital with a diagnosis of COPD exacerbation. February 09 patient seen examined, still anxious, but not in respiratory distress still has cough and shortness of breath, she complains of buring abodminal pain today, epigastric region, she also has tenderness in the right epigastric and right lower qudrant, notes has her appendix and gall bladder able to tolerate food though Plan to get CT Abdomen today wbc worsened today, but pt is otherwise clinically stable, likely related to steroids Duplex lower extremities done, no acute dvt, resovling old clot Pertinent ROS: Denies headache, dizziness Denies chest pain, palpitations improving cough and shortness of breath Present abdominal pain, nausea or vomiting. - Constitutional Vitals: Vital Signs Temp Pulse Resp BP Pulse Ox 98.2 F 88 22 112/78 94 02/09/18 04:01 02/09/18 08:20 02/09/18 08:20 02/09/18 04:01 02/09/18 04:01 Period Temp Pulse Resp BP Sys/Christian Pulse Ox Last 24 Hr 98.2 F-100 F 51-102 15-28 103-145/72-125 84-100 Intake and Output 02/08/18 02/09/18 02/09/18 21:59 05:59 13:59 Intake Total 51 / 51 1360 / 1360 Output Total 0 / 0 400 / 400 Balance 51 / 51 960 / 960 Weight 104 lb 11.2 oz Intake & Output: Intake & Output 02/08/18 02/09/18 02/09/18 21:59 05:59 13:59 Intake Total 51 / 51 1360 / 1360 Output Total 0 / 0 400 / 400 Balance 51 / 51 960 / 960 Weight 104 lb 11.2 oz Intake: IV 51 / 51 1000 / 1000 Dextrose 5%-1/2Ns IV Solution 1 1000 / 1000 ,000 ml @ 75 mls/hr IV .[id number] [facility] Rx#:[id number] Vitamin B1 100 mg In Sodium 51 / 51 Chloride 0.9% 50 ml @ 50 mls/hr IV DAILY [facility] Rx#:[id number] Oral 0 / 0 360 / 360 Output: Urine Catheter Amount 0 / 0 Void Amount 400 / 400 Other: Meal Dinner Tuna sandwich, chocolate ice cream Percent of Meal Consumed 50% 100% Feeding Ability Assist with Tray Set Up Independent Exam: Constitutional; Afebrile, cooperative, alert, not in distress. Eyes- No icterus, , No periorbital swelling Ears- Ext ear normal, hearing normal to conversation. Neck- Midline trachea, supple Respiratory system: Air Entry equal on both sides, air entry is much better, not much wheezing today. she is able to speak full sentences, CVS- Rate rhythm regular, S1,S2 heard, no gallop, no rub. Abdomen- Soft good bowel sounds, but tenderness on the right side, and epigastric region. 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, moving all extremities, no gross focal deficit noted, has pin rolling movement, still has significant twiching Medical - PN: Obj Da - Labs CBC & Chem 7: 02/09/18 07:51 02/09/18 07:51 Labs: Abnormal Lab Results 02/09/18 02/09/18 02/08/18 07:51 07:51 11:21 WBC 17.6 H RBC 3.77 L Hgb 11.4 L Hct 34.4 L Gran % 93.5 H Lymph % (Auto) 2.8 L Gran # 16.5 H Lymph # (Auto) 0.5 L POC BUN Glucose 166 H POC Glucose Calcium 8.3 L POC WB Ioniz Calcium Phosphorus 2.6 L NT-Pro-B Natriuret Pep Total Protein 5.4 L Globulin 1.7 L Ur Amphetamines Screen Suspect positive A 02/08/18 02/08/18 10:23 10:23 WBC 11.3 H RBC Hgb Hct Gran % 80.8 H Lymph % (Auto) 11.8 L Gran # 9.1 H Lymph # (Auto) 1.3 L POC BUN 25 H Glucose 110 H POC Glucose 107 H Calcium POC WB Ioniz Calcium 0.99 L Phosphorus NT-Pro-B Natriuret Pep 158.8 H Total Protein Globulin Ur Amphetamines Screen Meds: Medications Acetaminophen (Tylenol) 650 mg PO Q6HP PRN PRN Reason: PAIN/FEVER > 101 Albuterol/Ipratropium (Duoneb) 3 ml NEB Q4HRT [facility] Last Admin: 02/09/18 08:19 Dose: 3 ml Dextrose (Dextrose 50%) 0 ml IV UD PRN PRN Reason: Hypoglycemia Diagnostic Test (Pha) (Accu-Chek) 1 each FS ACHS [facility] Last Admin: 02/09/18 07:30 Dose: 1 each Doxycycline Hyclate (Doxycycline Hyclate) 100 mg PO BID [facility] Stop: 02/15/18 14:55 Last Admin: 02/08/18 21:19 Dose: 100 mg Glucose (Insta-Glucose) 15 gm PO PRN PRN PRN Reason: Hypoglycemia Dextrose/Sodium Chloride (Dextrose 5%-1/2ns Iv Solution) 1,000 mls @ 75 mls/hr IV .[id number] [facility] Last Admin: 02/09/18 05:05 Dose: 75 mls/hr Thiamine HCl 100 mg/ Sodium (Chloride) 51 mls @ 50 mls/hr IV DAILY [facility] Stop: 02/14/18 10:02 Last Infusion: 02/08/18 17:15 Dose: Infused Insulin Human Lispro (Humalog) 0 unit SQ ACHS [facility] PRN Reason: Protocol Last Admin: 02/09/18 10:39 Dose: Not Given Methylprednisolone Sodium Succinate (Solu-Medrol) 62.5 mg IV Q8 [facility] Last Admin: 02/09/18 06:04 Dose: 62.5 mg Naloxone HCl (Narcan) 0.1 mg IV Q2MIN PRN PRN Reason: Opiate Reversal Sodium Chloride (Saline Flush) 10 ml IV Q8 [facility] Last Admin: 02/09/18 06:04 Dose: Not Given Medical - PN: A/P - Time Spent With Patient Total time spent is greater than 50% in coordination of care (as documented) at patient's floor/unit and/or counseling patient: - Narrative A/P Narrative: A/P Acute exacerbation of COPD Anxiety Methamphetamine use, Tobacco abuse Alcoholism DVT Pulmonary embolism Diabetes Mellitis Abdominal pain Plan monitor on tele continue IV steroids, duonebs and doxycyclnie for copd resume home meds for anxiety, not on respiridone as per the last list. CT abdomen and pelvis. IV thiamine IV fluids resume eliquis, eliquis for DVT and PE, Pt counselled again to quit smoking, meth use and etoh. Sliding scale insulin for now. Full code Carb consistent diet Medical - PN: Qual - VTE Deep Vein Thrombosis/Pulmonary Embolism Present on Admission: No
[2018-02-09] MEDS ORDERED: PANTOPRAZOLE 40 MG VIAL IV SCH (11:15)
[2018-02-09] MEDS: DOXYCYCLINE HYCLATE 100 MG TABLET.ORL PO SCH ×2 (12:33→20:29)
[2018-02-09] MEDS: THIAMINE 100 MG in 0.9 % SODIUM CHLORIDE 50 ML IV SCH (12:35)
--- NOTE | 2018-02-09 12:44 | Cat Scan Report ---
CLINICAL INFORMATION: Abdominal pain for one month COMPARISON: None. TECHNIQUE: Axial images were obtained through the abdomen and pelvis. Sagittally and coronally reformatted images. 80 mL contrast material injected intravenously. Oral contrast material was given FINDINGS: Lung bases are negative. No infiltrate or mass. No pleural fluid. No pericardial fluid. No hiatal hernia. Normal smooth liver contour. No evidence for cirrhosis. There are two low density abnormalities in the right lobe of the liver. These are subcapsular and measures 7 mm and 5 mm. These are probably benign cysts. Liver is otherwise negative. Gallbladder is present. Gallbladder is not distended. No calcified gallstones. No dilated bile ducts. Negative spleen. Normal enhancement splenic and portal veins Negative pancreas. No pancreatic mass. No peripancreatic abnormality. Negative adrenal glands. There are two right renal cysts. No solid mass. No left renal cyst. No hydronephrosis. No calculi. No hydroureter. Bladder is negative. No bladder calculus or mass Uterus is anteflexed. No adnexal mass. No free pelvic fluid. Colon is negative. No detectable colonic mass. No diverticulitis or appendicitis. No mechanical small bowel obstruction. No retroperitoneal or mesenteric adenopathy. There is mild atherosclerotic calcification. No abdominal aortic aneurysm. IMPRESSION: 1. No acute abnormality 2. Benign hepatic and right renal cysts. No solid mass The exam was performed using radiation dose optimization techniques including, but not limited to, automated exposure control, adjustment of the mA and/or kV according to patient size and use of iterative reconstruction technique. Interpreted and Authenticated by: Reggie Maldonado 02/09/18
[2018-02-09] MEDS ORDERED: DEXTROSE 50% 50 ML VIAL IV PRN (14:14)
[2018-02-09] MEDS ORDERED: DEXTROSE 31 GM ORAL.SUSP PO PRN (14:14)
[2018-02-09] MEDS ORDERED: ACETAMINOPHEN 325 MG TABLET PO PRN (14:14)
[2018-02-09] MEDS ORDERED: NALOXONE HCL 0.4 MG/ML VIAL IV PRN (14:14)
[2018-02-09] MEDS ORDERED: LORazepam 2 MG/ML VIAL IV PRN (14:14)
[2018-02-09] MEDS ORDERED: hydrOXYzine 25 MG TABLET PO SCH (15:00)
[2018-02-09] MEDS ORDERED: IPRATROPIUM/ALBUTEROL 3 ML AMPUL.NEB NEB SCH (15:00)
[2018-02-09] MEDS: hydrOXYzine 25 MG TABLET PO SCH ×2 (16:11→20:23)
[2018-02-09] MEDS: PANTOPRAZOLE 40 MG VIAL IV SCH (18:02)
[2018-02-09] MEDS: busPIRone 5 MG TABLET PO SCH (20:23)
[2018-02-09] MEDS: APIXABAN 5 MG TABLET PO SCH (20:24)
[2018-02-10] MEDS: IPRATROPIUM/ALBUTEROL 3 ML AMPUL.NEB NEB SCH ×2 (00:22→07:36)
[2018-02-10] MEDS: DEXTROSE 5%-1/2NS 1,000 ML IV SCH (04:42)
[2018-02-10] MEDS: 0.9 % SODIUM CHLORIDE 10 ML SYRINGE IV SCH (05:41)
[2018-02-10] MEDS: methylPREDNISolone SOD SUCC 125 MG/2 ML VIAL IV SCH (05:41)
[2018-02-10 06:08] LABS: Basophils # (Auto) 0 K/mcL (0.0-0.3); Basophils % (Auto) 0 % (0.0-2.0); Eosinophils # (Auto) 0.7 K/mcL (0.0-0.7); Eosinophils % (Auto) 3.9 % (0.0-7.0); Granulocytes % (Auto) 91.1 % (38.0-78.0); Lymphocytes # (Auto) 0.5 K/mcL (1.5-4.8); Lymphocytes % (Auto) 3.2 % (15.5-49.0); Mean Cell Volume 91.1 fL (80.0-100.0); Mean Corpuscular HGB Conc 32.9 g/dL (31.0-36.0); Mean Corpuscular Hemoglobin 29.9 pg (26.0-34.0); Monocytes # (Auto) 0.3 K/mcL (0.1-0.9); Monocytes % (Auto) 1.8 % (1.0-12.0); Platelet Count 300 K/mcL (140-440); RBC 3.83 M/mcL (4.00-5.20)
[2018-02-10 06:46] LABS: ALT/SGPT 10 U/l (0-40); Albumin 3.4 gm/dL (3.2-5.2); Alkaline Phosphatase 52 U/L (39-117); Bilirubin,Direct < 0.2 mg/dL (0.0-0.3); Blood Urea Nitrogen 21 mg/dl (6-20); Gamma Glutamyl Transpeptidase 8 U/L (5-36); Uric Acid 2.5 mg/dL (2.5-8.0)
[2018-02-10] MEDS: PANTOPRAZOLE 40 MG VIAL IV SCH (07:46)
[2018-02-10] MEDS: INSULIN LISPRO 1 UNIT/0.01 ML UNIT SQ SCH ×2 (07:52→13:06)
[2018-02-10] MEDS: APIXABAN 5 MG TABLET PO SCH (08:28)
[2018-02-10] MEDS: busPIRone 5 MG TABLET PO SCH (08:29)
[2018-02-10] MEDS: hydrOXYzine 25 MG TABLET PO SCH (08:29)
[2018-02-10] MEDS: DOXYCYCLINE HYCLATE 100 MG TABLET.ORL PO SCH (08:29)
[2018-02-10] MEDS ORDERED: THIAMINE 100 MG in 0.9 % SODIUM CHLORIDE 50 ML IV SCH (09:00)
--- NOTE | 2018-02-10 12:07 | Discharge Summary ---
Medical - DS: Prov Patient information: Note initiated : 02/10/18 at 12:06 pm Service Date, if different from initiated Date: [] Patient: Shelly Marie a 57 y/o F admitted on 02/08/18 for Chest Pain, SOB. Chief Complaint: [] Date of admission: 02/08/18 14:25 Discharge date: 02/10/18 Primary care physician: Gretel Huang Consults: 02/08/18 12:29 Consult to Physician [CONS] Stat Comment: Consulting Provider: Bro Lyons Reason For Exam: Physician to Consult Discharging clinician: Bro Lynos Medical - DS: Meds - Discharge Medications Prescriptions: Albuterol Sulfate [Proair Hfa] 2 puff IH Q4-6HP PRN #1 [id number] PRN Reason: Bronchospasm Doxycycline Hyclate 100 mg PO BID #10 tablet.orl Ipratropium/Albuterol [Duoneb] 3 ml NEB Q6 #120 ampul.neb predniSONE [Prednisone] 40 mg PO DAILY #10 tab Active and Home Medications: Home Medications Albuterol Sulfate [Proair Hfa] 2 puff IH Q4-6HP PRN #1 06/29/17 [Rx Confirmed Last Taken Unknown] Apixaban [Eliquis] 5 mg PO BID #60 tablet 06/29/17 [Rx Confirmed 02/08/18 Last Taken Unknown] busPIRone [Buspar] 5 mg PO BID 10/15/17 [History Confirmed 02/08/18 Last Taken Unknown] hydrOXYzine HCL [Hydroxyzine HCl] 25 mg PO TID 10/15/17 [History Confirmed 02/08 Last Taken Unknown] predniSONE [Prednisone] 20 mg PO DAILY #23 tab 01/27/18 [Rx Confirmed 02/08/18 Last Taken Unknown] Medical - DS: Hosp Hospital course: Ms. Marie is a 57 year old Female with history of chronic tobacco use, COPD, chronic methamphetamine use presents to the emergency room with complaints of chest pain and shortness of breath that has been going on for the last 2 days. According to the patient she fell down 2 days ago and hurt the midline of her chest and she has some chest pain which is worse with inspiration. The patient notes that since yesterday she has also been having shortness of breath and worsening cough from her baseline. She denies any fever or chills but notes that she had a temperature when she was checked in. The patient notes her cough is associated with some sputum unable to tell me the color or quantify the amount. She notes that she has increased shortness of breath with activity and this is a change from her baseline. The patient notes she used methamphetamine approximately 4 days ago, has been drinking alcohol, still smoking, and notes that she has not been taking her regular medications. She ran out of her inhaler? In the emergency room she had a low-grade temperature of 100, heart rate around 90, respiratory rate between 24-28, patient was saturating between 86-94% on room air. Her labs showed leukocytosis with a WBC count of 11.3 hemoglobin 13.6 platelets 343, INR 0.9 lactic acid 1.4, her basic metabolic profile was unremarkable She had a troponin of less than 0.01, BNP of 158 EKG did not show signs of any acute ischemia The patient's chest x-ray did not reveal any infiltrates was interpreted as COPD. The patient was treated for copd with Solu-Medrol, doxycycline, DuoNeb's. The patient responded to treatment very well at the time of discharge she was back to her baseline respiratory status. She will be discharged home with p.o. prednisone 40 mg for another 5 days to complete a seven-day course. She will complete 5 more days of doxycycline. I am going to give her a prescription for DuoNeb. The patient admits to having a nebulizer at home. I will also give her a prescription for albuterol inhaler. I have asked her to call her PCP tomorrow and get prescriptions for any medication she may not have. The patient has a problem with substance abuse she still smokes. Despite multiple rounds of education counseling the patient has not given up this habit. I tried again to convince the patient to stop smoking and stop using methamphetamine as this triggers of breathing issues. The patient complained about sabdominal pain during the hospital stay, CAT scan of the abdomen was done this was unremarkable. The patient has a history of DVT, duplex of the lower extremity shows resolving clot. The patient was been by speech therapist during this hospital stay and a dysphagia 2 diet was recommended. Discharge diagnosis: copd exacerbation - Time Spent with Patient Total time spent providing and/or coordinating discharge services: Greater than 30 minutes Medical - DS: Exam - Constitutional Vitals: Vital Signs Temp Pulse Pulse Resp BP BP Pulse Ox 02/10/18 06:56 97.7 F 18 115/78 97 02/10/18 04:00 98.8 F 80 16 95/57 96 02/10/18 00:00 98.4 F 94 H 18 102/62 96 02/09/18 19:39 97.5 F 92 H 18 107/69 99 02/09/18 19:03 87 20 02/09/18 18:56 96 02/09/18 16:00 98.0 F 100 H 16 134/85 95 02/09/18 14:01 121/81 98 02/09/18 13:01 128/81 98 02/09/18 12:35 114/80 98 02/09/18 12:09 98.0 F 162/130 98 Intake and Output 02/09/18 02/10/18 02/10/18 21:59 05:59 13:59 Intake Total 291 / 291 50 / 50 Balance 291 / 291 50 / 50 Intake: IV 51 / 51 Oral 240 / 240 50 / 50 Other: Meal yogurt ice cream Jello Percent of Meal Consumed 100% 100% 100% Feeding Ability Independent Independent Independent # Voids 1 1 Weight 107 lb 8 oz Additional comments: Constitutional; Afebrile, cooperative, alert, not in distress. Eyes- No icterus, , No periorbital swelling Ears- Ext ear normal, hearing normal to conversation. Neck- Midline trachea, supple Respiratory system: Air Entry equal on both sides, No crackles or wheezing, no rhonchi. CVS- Rate rhythm regular, S1,S2 heard, no gallop, no rub. Abdomen- Soft nontender abdomen, no organomegaly, no tenderness, no guarding or rigidity, LOCAL SUPERINTENDENT- AOOx3, moving all extremities, no gross focal deficit noted. oral tics improved. Medical - DS: Data Labs on day of discharge: Labs from last 24 hours 02/10/18 02/10/18 04:56 04:56 WBC 17.0 H RBC 3.83 L Hgb 11.5 L Hct 34.9 L MCV 91.1 MCH 29.9 MCHC 32.9 RDW 13.0 Plt Count 300 MPV 8.4 Gran % 91.1 H Lymph % (Auto) 3.2 L [place] % (Auto) 1.8 Eos % (Auto) 3.9 Baso % (Auto) 0 Gran # 15.5 H Lymph # (Auto) 0.5 L [place] # (Auto) 0.3 Eos # (Auto) 0.7 Baso # (Auto) 0 Sodium 142 Potassium 4.2 Chloride 105 Carbon Dioxide 27 Anion Gap 10.0 BUN 21 H Creatinine 0.8 GFR Calculation 81 Glucose 149 H Uric Acid 2.5 Calcium 8.3 L Phosphorus 2.3 L Magnesium 2.1 Total Bilirubin < 0.2 Direct Bilirubin < 0.2 GGT 8 AST 12 ALT 10 Alkaline Phosphatase 52 Lactate Dehydrogenase 167 Total Protein 5.1 L Albumin 3.4 Globulin 1.7 L Albumin/Globulin Ratio 2.0 Triglycerides 99 Medical - DS: A/P - Patient/Caregiver Discharge Instructions Activity: increase activity as tolerated Diet: Dysphagia Mech Alter Additional Instructions: Please follow up with your PCP in 5 days Go to emergency room if breathing is worse, chest pain, fever or any other acute concerning symptom Please take prednisone 2 tablets by mouth once a day with food for 5 more days Take doxycycline this is an antibiotic 1 tablet twice a day for 5 days Use your nebulizer every 4-6 hours for shortness of breath Please consider stopping smoking and using meth, his doctor your primary care provider to see if there are any programs he can participate in Please take mechanically altered soft diet according to the request of the speech therapist. Please consult your physician before resuming a regular diet. - Follow up Plan Follow up with: Gretel Huang DO [Primary Care Provider] - Disposition: Home, Self-Care Prognosis: Fair Rehab Potential: Fair I certify that the patient requires SNF services: No Overall status at discharge: patient is progressing back to baseline Medical - DS: Qual - VTE Deep Vein Thrombosis/Pulmonary Embolism Present on Admission: No
== END 2018-02-10 13:32 | disposition home or self-care (01) ==
LOC: ED 10:02 → ICU 10:02 → MEDSUR 02-09 16:15
PROVIDERS: ADMIT Internal Medicine; ATTEND Internal Medicine